=== PATIENT | male | born 1970 | race Caucasian/White ===

== ENCOUNTER → 2016-09-07 | Outpatient (CLI) | payer OTHER ==
[~2016-09-07] VITALS: Ht 188 cm; Wt 116.8 kg
[~2016-09-07] MED LIST: ATOR-22 PO; GLC/500 PO; LIRA18IN SC
[2016-09-07 13:19] VITALS: BP 117/85; PULSE 96; Ht 188 cm; Wt 116.8 kg
== END | disposition home or self-care (01) ==
LOC: C.NEUR 12:57
PROVIDERS: ATTEND Internal Medicine Pulmonary Disease
DX: R06.83 Snoring (principal); R06.81 Apnea, not elsewhere classified

== ENCOUNTER → 2016-09-21 | Outpatient (CLI) | payer OTHER ==
--- NOTE | 2016-09-24 10:48 | POLYSOMNOGRAPH REPORT ---
CLINICAL DATA: A 46-year-old male with a BMI of 33.06, referred by myself and Dr. Dey for evaluation of snoring and apneic episodes. He does not have significant daytime fatigue. On the evening of 09/21/2016, a home sleep apnea test was performed using a [employer] type 3 monitor. RECORDING RESULTS: Total recording time was 10 hours. The patient's estimated sleep time and patient monitoring time was 9.6 hours. RESPIRATORY DATA: Severe sleep apnea/hypopnea was documented. The LO was 46.4. There were 102 obstructive, 129 mixed, and 2 central apneic episodes. There were 214 hypopneic episodes. The longest respiratory event was 64 seconds. OXIMETRY DATA: Significant nocturnal hypoxemia was seen. Oxygen misty was 80%. Mean saturation was 91%. Time below 89% was 107 minutes. HEART RATE DATA: Heart rates ranged from 48-64 beats per minute. SNORING DATA: Loud snoring was heard throughout the night. IMPRESSION: Severe sleep apnea/hypopnea with an LO of 46.4 with significant nocturnal hypoxemia. RECOMMENDATIONS: The patient may benefit from a repeat sleep study with CPAP or use of auto-CPAP. CARMINAD
== END | disposition home or self-care (01) ==
LOC: C.NEUR 11:03
PROVIDERS: ATTEND Internal Medicine Pulmonary Disease
DX: R06.83 Snoring (principal); R06.81 Apnea, not elsewhere classified

== ENCOUNTER → 2016-09-24 | Outpatient (CLI) | payer OTHER ==
[~2016-09-24] VITALS: Ht 188 cm; Wt 116.2 kg
[2016-09-24 15:44] VITALS: BP 112/76; PULSE 80; Ht 188 cm; Wt 116.2 kg
== END | disposition home or self-care (01) ==
LOC: C.NEUR 13:40
PROVIDERS: ATTEND Internal Medicine Pulmonary Disease
DX: G47.33 Obstructive sleep apnea (adult) (pediatric) (principal)

== ENCOUNTER → 2017-07-28 | Outpatient (CLI) | payer OTHER | END | disposition home or self-care (01) | LOC: C.PATHSPEC 17:19 | PROVIDERS: ATTEND Plastic Surgery | DX: L72.9 Follicular cyst of the skin and subcutaneous tissue, unspecified (principal) ==

== ENCOUNTER → 2018-03-15 | Outpatient (CLI) | payer OTHER ==
--- NOTE | 2018-03-20 15:02 | POLYSOMNOGRAPH REPORT ---
CLINICAL DATA: A 47-year-old male with BMI of 28.5 referred for repeat home sleep apnea test. He has a history of severe sleep apnea with an LO of 46+ and was on auto CPAP. He lost 40 pounds and has stopped using CPAP. His no longer complains of snoring or witnessed apneic episodes. On the evening of 03/16/2018, home sleep apnea test was performed using a [employer] type 3 monitor. RECORDING RESULTS: Total recording time was 10 hours. Patient's monitoring time and estimated sleep time was 4 hours. RESPIRATORY DATA: Mild sleep apnea was documented. The LO was 15.8. There were 6 obstructive, 12 mixed, and 21 central apneic episodes. There were 25 hypopneic episodes. The longest respiratory event was 35 seconds. OXIMETRY DATA: Nocturnal hypoxemia was seen. Oxygen misty was 84%. Mean saturation was 91%. Time below 89% was 41 minutes. HEART RATE DATA: Heart rates ranged from 61-74 beats per minute. SNORING DATA: Snoring was recorded through the night. COUNTER STITCHER'S COMMENTS: The patient wore the equipment for 4 hours. He had a respiratory infection and took it off at 1:30 a.m. Many of his apneic episodes were central apneic episodes which can be seen with upper respiratory infections. The majority of his episodes occurred while supine. IMPRESSION: A 47-year-old male with previous history of severe sleep apnea with significant improvement with weight loss. The patient still has [id number] sleep apnea. However, the majority of these apneic episodes were central in origin, which may have been related to his respiratory tract infection. RECOMMENDATIONS: The patient should continue to practice good sleep hygiene. If clinically symptomatic, CPAP could be restarted. [facility]
== END | disposition home or self-care (01) ==
LOC: C.NEUR 08:32
PROVIDERS: ATTEND Internal Medicine Pulmonary Disease
DX: G47.30 Sleep apnea, unspecified (principal)

== ENCOUNTER 2022-01-11 08:09 | Observation (INO) ==
--- NOTE | 2022-01-07 13:48 | Anesthesiology Consultation ---
Date of Service January 07, 2022 Assessment & Plan (1) Encounter for pre-operative examination: - COVID screening: Per assessment on 01/07: No known COVID-19 positive contacts or current COVID-19 related symptoms. Travel screen- returned from travel to [place] (for work but also attended basketball game, stayed in hotel). Patient vaccinated. Preop Covid test scheduled 01/08 ([place]). D/t recent travel/basketball game attendance, will order [place] for AM DOS. - Check [facility] AM DOS Chart Review Chart Review: Acceptable Risk for Surgery and Patient NOT seen in Pre Admission Testing History Surgery Operation Date: 01/11/22 08:50 Proposed Procedures p TURP (Transurethral Resection of the Prostate) - Ciro Perez, Height/Weight Height: 6 ft 2 in Weight: 104.326 kg Allergies Allergy/AdvReac Type Severity Reaction Status Date / Time No Known Drug Allergies Allergy Verified 11/10/21 09:43 Medications Home Medications Medication Instructions Recorded Confirmed Last Taken alprazolam 0.5 mg tablet 0.5 mg PO DAILY PRN tab 04/20/19 01/07/22 Unknown atorvastatin 20 mg tablet 20 mg PO QAM #90 tab 04/20/19 01/07/22 Unknown eszopiclone 1 mg tablet 1 mg PO QPM PRN tab 04/20/19 01/07/22 Unknown metformin 500 mg tablet 500 mg PO BID #180 tab 04/20/19 01/07/22 Unknown semaglutide 1 mg/dose (2 mg/1.5 1 mg SUBCUT WEEKLY ml 04/20/19 01/07/22 Unknown mL) subcutaneous pen injector sildenafil (pulm.hypertension) 20 100 mg PO ONCE PRN #30 tab 04/09/21 01/07/22 Unknown mg tablet mirabegron 50 mg tablet,extended 50 mg PO DAILY #30 tab 05/06/21 01/07/22 Unknown release 24 hr (Myrbetriq) epinephrine 0.3 mg/0.3 mL 0.3 mg IM Q10M PRN #2 ea 05/08/21 01/07/22 Unknown injection, auto-injector (EpiPen) alfuzosin 10 mg tablet,extended 10 mg PO DAILY #30 tab 10/23/21 01/07/22 Unknown release 24 hr multivitamin 1 tab PO QAM 01/07/22 01/07/22 Unknown Past Medical History Medical History (Updated 01/07/22 @ 13:42 by Nadya Barahona) Benign prostatic hyperplasia with urinary obstruction Chronic kidney disease, stage I Diabetes History of COVID-19 07/2021 Flu-like symptoms, fever > resolved Hyperlipidemia 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 Severe obstructive sleep apnea Per records Past Family History Family History Father Hypertension Diabetes Family/Other Bladder cancer Past Surgical History Surgical History H/O elbow surgery LEFT S/P ACL reconstruction LEFT S/P bladder repair S/P colonoscopy 2019 Status post finger joint fusion RIGHT RING FINGER Status post hip surgery LEFT Social History Smoking Status: Never smoker Do You Dip or Chew Tobacco: No Hx Alcohol Use: Yes Alcohol type: beer and wine alcohol intake frequency: a few times a week Hx Substance Use: No substance use type: does not use Lab Results Anesthesia Preop Results Results Anesthesia Widget: WBC 4.01 K/uL (4.8-10.8) L 12/31/21 Hgb 14.6 g/dL (14.0-18.0) 12/31/21 Hct 43.3 % (42-52) 12/31/21 Plt 170 K/uL (130-400) 12/31/21 Na 139 mmol/L (136-145) 12/31/21 K 3.7 mmol/L (3.5-5.1) 12/31/21 Cl 104 mmol/L (98-107) 12/31/21 CO2 29 mmol/L (21-32) 12/31/21 BUN 16 mg/dl (6-23) 12/31/21 Creat 1.25 mg/dl (0.6-1.4) 12/31/21 Glucose Level 107 mg/dl (70-99(Fasting)) H 12/31/21 Testing Laboratory Results 12/23/21 UA negative URINE CULTURE no growth Electrocardiogram Date: 12/31/21 Findings: + SB @ (56) Chest X-Ray Date: 12/31/21 Findings: + NAD
[~2022-01-11 08:09] MED LIST changes: -ATOR-22 PO; -GLC/500 PO; -LIRA18IN SC; +LR 15ML/HR IV SCH; +ceFAZolin 2000MG 2,000 MG/15 ML SYR IV SCH
--- NOTE | 2022-01-11 08:19 | History & Physical Bridge Note ---
Date of Service January 11, 2022 History & Physical Bridge Note I have examined the patient, reviewed the History & Physical and in the interval since the performance of the History & Physical I have noted the following changes of clinical significance: no changes noted
[2022-01-11] MEDS ORDERED: PROPOFOL IV EMULSION 10 MG/ML 20 ML VIAL IV ONE ×2 (08:26→11:06)
[2022-01-11] MEDS ORDERED: ONDANSETRON INJ 2 MG/ML 2 ML VIAL ONE (08:26)
[2022-01-11] MEDS ORDERED: LIDOCAINE 2% 2 ML VIAL/AMP(20MG/ML) INFIL ONE ×2 (08:26→11:06)
[2022-01-11] MEDS ORDERED: fentaNYL citrate 100 MCG/2 ML VIAL ONE ×2 (08:26→11:57)
[2022-01-11] MEDS ORDERED: MIDAZOLAM HCL 1 MG/ML 2ML VIAL ONE (08:26)
[2022-01-11] MEDS ORDERED: ALBUTEROL HFA INHALER 8.5 GM ONE (10:37)
--- NOTE | 2022-01-11 11:22 | Operative Report ---
PG Post Operative Report Pre & Post Diagnosis Operation Date: 01/11/22 09:40 Pre-Op Diagnosis: Benign Prostatic Hyperplasia with Urinary Obstruction Post-Op Diagnosis: Benign Prostatic Hyperplasia with Urinary Obstruction I identified the patient and participated in the time-out.: Yes Procedure Operation Date: 01/11/22 09:40 Actual Procedures p Cystoscopy with Transurethral Resection of the Prostate(Not Applicable) - Ciro Perez DO Surgeon Ciro Perez, II, DO Potato Sorter None Estimated Blood Loss 5 Findings Consistent with Post-Op Diagnosis Large Prostate with obstruction. Specimens Prostate adenoma. Drains 22Fr [address] Catheter Anesthesia Type General Complications none Disposition Disposition: Recovery Room Indications Patient with obstruction due to prostate enlargement. Risks and benefits discussed at length. Description of Procedure Patient was consented and brought back to the operating room. Patient was placed under anesthesia in the supine position and moved to the dorsal lithotomy position. Patient was prepped and draped in the regular sterile fashion. A time out was completed. A 30degree Cystoscope was placed into the bladder and the entire bladder was examined. The UO's were identified as well as the bladder neck, trigone, dome, and the other important landmarks. The prostatic urethra and large lobes/adenoma was assessed and the veru and bladder neck identified and area/size was assessed. The resection scope was placed and the fine bipolar loop was selected. Starting at the 5 and 7 o'clock positions, a channel was created from bladder neck to the veru. The lateral lobes were then resected from 1 and 11 o'clock to the channel. The resection was taken to capsule fibers. The Specimen was removed and sent for analysis. The resection bed and any bleeding areas were fulgurated/cauterized and the entire area inspected. All bleeding was controlled. The bladder was inspected a final time. The bladder was emptied and irrigated. All specimen and debris was removed. The scope was removed with the bladder partially full. A catheter was placed and balloon elevated. This was easily irrigated. The patient was cleaned, aroused from anesthesia, and transferred to the pacu in stable condition having tolerated the procedure well with no complications. I was present and participated in all aspects of the procedure. The patient will be monitored in the PACU until transferred. Will admit for observation over night and monitor on CBI. Plan to keep rosales for 10 days and followup in office for removal. I attest to the content of the Intraoperative Record and any orders documented therein. Any exceptions are noted below.
[2022-01-11] MEDS ORDERED: ATROPINE SULFATE 0.1 MG/ML 10ML SYR IV PRN (11:55)
[2022-01-11] MEDS ORDERED: ONDANSETRON INJ 2 MG/ML 2 ML VIAL IV PRN ×2 (11:55→14:01)
[2022-01-11] MEDS: fentaNYL citrate 100 MCG/2 ML VIAL IV PRN ×2 (11:59→12:10)
--- NOTE | 2022-01-11 12:22 | Anesthesiology Progress Note ---
Date of Service January 11, 2022 Anesthesia Post Procedure Vital Signs Vital Signs: Temp Pulse Pulse Resp BP Pulse Ox 01/11/22 12:20 57 L 12 135/78 93 01/11/22 12:10 61 12 140/77 95 01/11/22 12:00 64 16 135/78 95 01/11/22 11:50 64 16 142/83 H 96 01/11/22 11:40 65 15 126/76 95 01/11/22 11:30 67 16 127/74 100 01/11/22 11:24 36.2 C L 69 18 130/73 100 01/11/22 08:51 36.3 C L 73 18 135/85 96 Pain Intensity Penis: Pain Intensity: 4 Transfer of Care Handoff Completed per policy Notes Mental Status: alert / awake / arousable Patient Amnestic to Procedure: Yes Nausea / Vomiting: adequately controlled Pain: adequately controlled Airway Patency, RR, SpO2: stable & adequate BP & HR: stable & adequate Hydration State: stable & adequate Anesthetic Complications: no major complications apparent
[2022-01-11] MEDS ORDERED: ESZOPICLONE 1 MG TAB PO PRN (14:01)
[2022-01-11] MEDS ORDERED: ALPRAZolam 0.5 MG TABLET PO PRN (14:01)
[2022-01-11] MEDS ORDERED: MoRPHine SULFATE 2 MG/ML CARP IV PRN (14:01)
[2022-01-11] MEDS ORDERED: BELLADONNA/OPIUM SUPP 60 MG SUPP PR PRN (14:01)
--- NOTE | 2022-01-11 14:20 | Hospitalist Consultation ---
Date of Consultation January 11, 2022 Assessment & Plan (1) Benign prostatic hyperplasia with urinary obstruction: S/p TURP on 01/[address] Perez. No complications noted in op report. Minimal EBL. - Management per primary team (2) Diabetes: No A1c in charts, but reports they are <6%. Has not been able to take his home semaglutide in several weeks due to being out of stock. - Sliding scale insulin (3) Insomnia: - Continue home eszopiclone PRN - Will also add Xanax for general anxiety PRN. Encouraged not to stack medications. (4) Witnessed apneic spells: Diagnosed with CHELY. Has used a CPAP at home previously, but not using one now. - No inpatient needs (5) Hyperlipidemia: - Continue statin (6) DVT prophylaxis: SCDs and early ambulation Given medical stability, Hospital Medicine team will sign off. Please re-consult with any questions or concerns. Thank you for letting us assist in the care of this patient! History of Present Illness Attending Physician: Ciro Perez, II, DO History of Present Illness 51yo M w/ hx of BPH, HLD, and anxiety who presents as a routine medical consult after TURP on 01/[address] Perez. Has been struggling with BPH symptoms for some time that have failed medical management. Presently feels ok. Albrecht is in place. Allergies Allergy/AdvReac Type Severity Reaction Status Date / Time No Known Drug Allergies Allergy Verified 01/11/22 08:47 Home Medications Medication Instructions Recorded Confirmed Type alprazolam 0.5 mg tablet 0.5 mg PO DAILY PRN tab 04/20/19 01/11/22 History atorvastatin 20 mg tablet 20 mg PO QAM #90 tab 04/20/19 01/11/22 History eszopiclone 1 mg tablet 1 mg PO QPM PRN tab 04/20/19 01/11/22 History semaglutide 1 mg/dose (2 mg/1.5 1 mg SUBCUT WEEKLY ml 04/20/19 01/11/22 History mL) subcutaneous pen injector sildenafil (pulm.hypertension) 20 100 mg PO ONCE PRN #30 tab 04/09/21 01/11/22 Rx mg tablet mirabegron 50 mg tablet,extended 50 mg PO DAILY #30 tab 05/06/21 01/11/22 Rx release 24 hr (Myrbetriq) epinephrine 0.3 mg/0.3 mL 0.3 mg IM Q10M PRN #2 ea 05/08/21 01/11/22 Rx injection, auto-injector (EpiPen) alfuzosin 10 mg tablet,extended 10 mg PO DAILY #30 tab 10/23/21 01/11/22 Rx release 24 hr multivitamin 1 tab PO QAM 01/07/22 01/11/22 History Patient History Medical History (Updated 01/11/22 @ 14:30 by López Purcell MD) Benign prostatic hyperplasia with urinary obstruction Chronic kidney disease, stage I Diabetes History of COVID-19 07/2021 Flu-like symptoms, fever > resolved Hyperlipidemia 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 Severe obstructive sleep apnea Per records Surgical History H/O elbow surgery LEFT S/P ACL reconstruction LEFT S/P bladder repair S/P colonoscopy 2019 Status post finger joint fusion RIGHT RING FINGER Status post hip surgery LEFT Family History Father Hypertension Diabetes Family/Other Bladder cancer Social History Smoking Status: Never smoker Second Hand Exposure: No; Do You Dip or Chew Tobacco: No; Tobacco Cessation Education Requested by Patient: No Hx Alcohol Use: Yes Alcohol type: beer and wine Hx Substance Use: No Preferred Language: Macedonian Communication Ability: Effective Case Investigator Required: No Beliefs That Will Affect Care: None marital status: Current Living Situation: Spouse current occupational status: employed Other Information That Helps Us Care for You: No Feels Safe at Home: Yes Safety Concerns: Feels Safe At This Time Assistive Devices: Glasses Assistive Devices Comment: READING GLASSES Review of Systems Review of Systems: All systems reviewed & are unremarkable except as noted in HPI & below Physical Exam Constitutional: WD/WN, vitals as above Eyes: EOM intact bilaterally; no conjunctival abnormality ENMT: external ear and nose normal, oropharynx normal Neck: trachea midline, no thyromegaly normal visual inspection Respiratory: normal respiratory effort, lungs clear to auscultation no respiratory distress Cardiovascular: RRR, no murmur, no edema Gastrointestinal (Abdomen): Inspection/Auscultation: abdomen normal to inspection; abdomen not distended Musculoskeletal: no cyanosis or clubbing, extremities motor strength 5/5 Skin: no rashes, warm and dry Neurologic: moves all extremities and awake Psychiatric: Orientation: alert, oriented to person and cooperative Results & Data Results & Data ([facility]) Vital Signs (Past 12 Hours) Vital Signs Temp Pulse Pulse Resp BP Pulse Ox 01/11/22 13:25 61 16 119/73 96 01/11/22 13:10 63 16 123/70 99 01/11/22 12:55 62 16 125/74 95 01/11/22 12:40 36.0 C L 60 16 125/73 96 01/11/22 12:30 61 12 127/75 96 01/11/22 12:20 57 L 12 135/78 93 01/11/22 12:10 61 12 140/77 95 01/11/22 12:00 64 16 135/78 95 01/11/22 11:50 64 16 142/83 H 96 01/11/22 11:40 65 15 126/76 95 01/11/22 11:30 67 16 127/74 100 01/11/22 11:24 36.2 C L 69 18 130/73 100 01/11/22 08:51 36.3 C L 73 18 135/85 96 PG Care Time/CCT Total # of Minutes Spent Total Time Spent with Patient: Total time spent is greater than 50% in coordination of care (as documented) at patient's floor/unit and/or counseling patient: Coding Level of Care Code 86710 Office/OBS Consult Lvl 4 Diagnoses Benign prostatic hyperplasia with urinary obstruction N40.1; N13.8 Witnessed apneic spells R06.81 Hyperlipidemia E78.5 DVT prophylaxis Z29.9 Diabetes E11.9 Insomnia G47.00
[2022-01-11] MEDS ORDERED: GLUCAGON FOR INJ 1 MG VIAL SQ PRN (14:32)
[2022-01-11] MEDS ORDERED: DEXTROSE 50% 50 ML SYRINGE IV PRN (14:32)
[2022-01-11] MEDS ORDERED: GLUCOSE 40% GEL 15 GM TUBE PO PRN (14:32)
[2022-01-11] MEDS ORDERED: GLUCOSE 10 TABS/TUBE PO PRN (14:32)
[2022-01-11] MEDS ORDERED: CARBOHYDRATES FOR HYPOGLYCEMIA PO PRN (14:32)
[2022-01-11] MEDS ORDERED: EPINEPHrine INJ 1 MG/ML AMP IM PRN (14:45)
[2022-01-11 14:55] LABS: Basophils # (auto) 0.01 K/uL (0-0.2); Basophils % (auto) 0.2 %; Eosinophils # (auto) 0.15 K/uL (0-0.5); Eosinophils % (auto) 2.6 %; Hematocrit (blood only) 38.9 % (42-52); Hemoglobin 12.9 g/dL (14.0-18.0); Immature Granulocytes # (auto) 0.01 K/uL (0.00-0.02); Immature Granulocytes % (auto) 0.2 %; Lymphocytes # (auto) 1.62 K/uL (1.2-3.4); Lymphocytes % (auto) 28.2 %; Mean Corpuscular Hemoglobin 29.3 pg (25-34); Mean Corpuscular Hgb Conc 33.2 g/dL (32-36); Mean Corpuscular Volume 88.4 fL (80-100); Mean Platelet Volume 11.1 fL (7.4-10.4); Monocytes # (auto) 0.35 K/uL (0.11-0.59); Monocytes % (auto) 6.1 %; Neutrophils % (auto) 62.7 %; Platelet Count 136 K/uL (130-400); RDW Coefficient of Variation 13.3 % (11.5-14.5); RDW Standard Deviation 42.8 fL (36.4-46.3); White Blood Count 5.74 K/uL (4.8-10.8)
[2022-01-11 15:06] LABS: Albumin Globulin Ratio 1.7 (0.9-2); Albumin Level 3.4 gm/dl (3.4-5.0); BUN Creatinine Ratio 7.1 (10-20); Bilirubin,Total 1.5 mg/dl (0.2-1.0); Calcium 8.1 mg/dl (8.5-10.1); Creatinine Clr Calc Pharmacy 89.6 ml/min; Est GFR (African American) 75.3 ml/min; Potassium 4.6 mmol/L (3.5-5.1); Total Protein 5.4 gm/dl (6.0-8.3)
[2022-01-11] MEDS: ALFUZOSIN HCL 10 MG TAB PO SCH (15:16)
[2022-01-11] MEDS: ATORVASTATIN 20 MG TAB PO SCH (15:16)
[2022-01-11] MEDS: DOCUSATE SODIUM 100 MG CAP PO SCH ×2 (15:17→21:43)
[2022-01-11] MEDS: SODIUM CHLORIDE 0.9% 1000ML 1,000 ML IV SCH (15:23)
[2022-01-11] MEDS: PHENAZOPYRIDINE HCL 200 MG TAB PO PRN ×2 (15:44→22:18)
[2022-01-11] MEDS: INSULIN ASPART PER UNIT SC SCH ×2 (17:00→20:31)
[2022-01-11] MEDS: ceFAZolin 2000MG 2,000 MG/15 ML SYR IV SCH (17:25)
[2022-01-11] MEDS: oxyCODONE/ACETAMINOPHEN 5mg/325mg TAB PO PRN (21:43)
[2022-01-12] MEDS: oxyCODONE/ACETAMINOPHEN 5mg/325mg TAB PO PRN ×2 (02:32→08:39)
[2022-01-12] MEDS: ceFAZolin 2000MG 2,000 MG/15 ML SYR IV SCH ×2 (02:35→09:20)
[2022-01-12] MEDS: SODIUM CHLORIDE 0.9% 1000ML 1,000 ML IV SCH (04:45)
--- NOTE | 2022-01-12 07:59 | Urology Progress Note ---
Date of Service January 12, 2022 Assessment & Plan (1) Benign prostatic hyperplasia with urinary obstruction: Plan: 51yo M admitted postoperatively - POD #1 s/p Cystoscopy with Transurethral Resection of the Prostate with Dr. Perez. - Hospital medicine consulted, appreciate recommendations. - Doing well, progressing as expected. - Pt afebrile, hemodynamically stable. - Postop labs stable. - Tolerating PO diet. - Minimal pain. - 3 way Albrecht catheter intact, patent and draining clear yellow urine with CBI on slow-moderate. - CBI clamped @0840, nursing aware - will reassess later this AM. - Maintain Albrecht catheter. - Anticipate home with Albrecht catheter later today presuming urine appropriate and he continues to progress as expected. - Pt reassessed this afternoon. - Patient feeling well, progressing as expected. - Albrecht draining clear yellow/orange urine off CBI. - Minimal pain. - Tolerating diet, no nausea or vomiting. - Expected clinical course reviewed with patient, he verbalized understanding. All questions answered. - Postoperative follow-up appointment in place. - Stable for discharge home today with Albrecht catheter. Admission and Anticipated Discharge Date Admission Date: January 11, 2022 Subjective Postop day #1 status post TURP. Patient examined at bedside this AM. Awake, resting in bed on arrival. No issues overnight. Minimal pain. Albrecht catheter intact, draining clear yellow urine with CBI on slow to moderate. Tolerating diet, no nausea or vomiting. Ambulating without issue. No fevers. Review of Systems Constitutional: as per Subjective / HPI Gastrointestinal: as per Subjective / HPI Genitourinary: + as per Subjective / HPI Physical Exam Constitutional: no acute distress Respiratory: normal respiratory effort; no respiratory distress and no labored breathing Gastrointestinal (Abdomen): Inspection/Auscultation: abdomen normal to inspection Skin: No visible rashes or lesions Neurologic: moves all extremities and awake Psychiatric: A+Ox3, euthymic affect Genitourinary: Albrecht catheter intact, draining clear yellow urine with CBI on slow to moderate. Results & Data ([facility]) Vital Signs (Past 12 Hours) Vital Signs Temp Pulse Resp BP Pulse Ox 01/12/22 02:48 36.6 C 58 L 16 113/69 93 01/11/22 22:44 36.8 C 66 16 121/73 93 PG Care Time/CCT Total # of Minutes Spent Total Time Spent with Patient: Total time spent is greater than 50% in coordination of care (as documented) at patient's floor/unit and/or counseling patient: Coding Level of Care Code None Diagnoses Benign prostatic hyperplasia with urinary obstruction N40.1; N13.8
[2022-01-12] MEDS: PHENAZOPYRIDINE HCL 200 MG TAB PO PRN (08:39)
[2022-01-12] MEDS: DOCUSATE SODIUM 100 MG CAP PO SCH (08:39)
[2022-01-12] MEDS: ATORVASTATIN 20 MG TAB PO SCH (08:40)
[2022-01-12] MEDS: ALFUZOSIN HCL 10 MG TAB PO SCH (08:40)
[2022-01-12] MEDS: INSULIN ASPART PER UNIT SC SCH ×2 (08:56→12:05)
--- NOTE | 2022-01-12 12:46 | Discharge Summary ---
Date of Service January 12, 2022 Admission HPI Per Admitting Provider 51yo M with BPH w/urinary obstruction who presents for transurethral resection of the prostate Admission Exam Per Admitting Provider General: Alert in no acute distress. HEENT: Normocephalic Atraumatic. Inspection normal. Psychologic: Normal affect. Respiratory: Nonlabored. Cardiovascular: No tachycardia Skin: [place] and Dry. Principal Diagnosis Benign Prostatic Hyperplasia with Urinary Obstruction Discharge Exam Constitutional no acute distress Respiratory normal respiratory effort; no respiratory distress and no labored breathing Gastrointestinal (Abdomen) Inspection/Auscultation: abdomen normal to inspection Neurologic moves all extremities and awake Psychiatric A+Ox3, euthymic affect Genitourinary Albrecht catheter intact, draining clear yellow/orange urine Discharge Data Allergies Allergy/AdvReac Type Severity Reaction Status Date / Time No Known Drug Allergies Allergy Verified 01/11/22 08:47 Consultations 01/11/22 14:01 Consult Hospitalist Routine Procedures Performed Operation Date: 01/11/22 09:40 Actual Procedures p Cystoscopy, Transurethral Resection of the Prostate(Not Applicable) - Ciro Perez DO Hospital Course (1) Benign prostatic hyperplasia with urinary obstruction: 51yo M admitted postoperatively s/p Cystoscopy with Transurethral Resection of the Prostate with Dr. Perez. Pt tolerated procedure well. No acute issues postoperatively. Postop labs stable. Hospital medicine consulted postoperatively for medical management. Patient deemed medically stable, hospital team signed off. CBI clamped in the morning of postop day #1, urine remained clear. Patient tolerated diet, ambulated without issue, and had minimal pain. He was subsequently discharged home with Albrecht catheter in stable condition on postop day #1. Total Time Total Time Spent Total Time Spent (In Minutes): 15 Discharge Plan Discharge Items Patient Disposition: Home - Self-Care Reason For Visit: Benign Prostatic Hyperplasia with Urinary Obstruct Discharge Diagnosis: Benign Prostatic Hyperplasia with Urinary Obstruction Activity: Per Instructions section Bathing Comment: OK to shower. No tub baths or soaks. Driving/Machine Use: Do not drive if taking prescription pain medication. Non-emergency contact: Surgeon and Urologist Call non-emergency contact if: you have any medication questions, your pain is worsening and you have a fever Follow-up/Referrals: Ciro Perez DO [Physician] - 01/26/22 1:00 pm Rommel Dey [Primary Care Provider] - Diet: Regular and Carb Consistent or DM2 Addtl Attending Provider Instructions: Please take all medications as prescribed and keep all follow-ups as scheduled. Please call our office at [phone] with any questions, concerns or need to reschedule appointments for any reason. We are happy to assist you. The following prescriptions have been sent to your pharmacy- An antibiotic, Bactrim DS 1 tab twice daily for 3 days. A stool softener, Colace twice daily as needed. Pyridium twice daily as needed for bladder pain and burning. Oxycodone as needed for pain. You can also use OTC Tylenol, follow package instructions. Tips for your recovery at home: Dont be alarmed by brownish or reddish blood or clots in your urine. This is a result of the procedure. This may occur off and on for weeks to months after the procedure but should continue to improve. Drink plenty of fluids during the day (enough to keep your urine very light colored). This will help keep a healthy flow of urine. Do not lift >25 lbs until your followup Avoid constipation. Please use a stool softener (Colace) for the first two weeks after your procedure Be sure to finish the antibiotics as prescribed. If you go home with a catheter, please wash tubing where it enters your body twice daily with mild soap (Dove or Dial). Once your catheter is removed, expect some blood in your urine and some burning when you urinate. You should have an appointment to have this removed, if you do not please call our office to arrange. Follow-up Your follow up appointments for having your catheter removed, and follow up with your physician should already be scheduled. If you have any questions regarding this, please contact our office. Your final pathology report will be discussed at your physician follow-up appointment. Call [facility] at [phone] right away if you have any of the following: Heavy bleeding, clots, or bright red blood from the catheter Catheter that falls out or stops draining Foul-smelling discharge from your catheter Fever of 101F or higher, chills, nausea, or vomiting Your pain is not relieved with medication Pending Studies at Discharge: Yes Studies:: pathology Stand-Alone Forms: My [facility] [employer], Smoking Cessation Medications and DC Order Prescriptions: New docusate sodium [Colace] 100 mg capsule 100 mg PO BID Qty: 30 RF: 0 sulfamethoxazole-trimethoprim [Bactrim DS] 800-160 mg tablet 1 tab PO BID 3 Days Qty: 6 RF: 0 phenazopyridine [Pyridium] 100 mg tablet 100 mg PO BID PRN (Reason: pain) Qty: 7 RF: 0 oxycodone 5 mg tablet 5 mg PO Q8H PRN (Reason: pain) Qty: 5 RF: 0 Continued sildenafil (pulm.hypertension) 20 mg tablet 100 mg PO ONCE PRN (Reason: sexual activity) Qty: 30 RF: 11 alfuzosin 10 mg tablet extended release 24 hr 10 mg PO DAILY Qty: 30 RF: 5 alprazolam 0.5 mg tablet 0.5 mg PO DAILY PRN (Reason: Anxiety) RF: 0 eszopiclone 1 mg tablet 1 mg PO QPM PRN (Reason: Sleep) RF: 0 atorvastatin 20 mg tablet 20 mg PO QAM Qty: 90 RF: 0 semaglutide 1 mg/dose (2 mg/1.5 mL) pen injector 1 mg subcut WEEKLY RF: 0 epinephrine [EpiPen] 0.3 mg/0.3 mL auto-injector 0.3 mg IM Q10M PRN (Reason: anaphylaxis) Qty: 2 RF: 1 multivitamin Tablet 1 tab PO QAM RF: 0 Discontinued Myrbetriq 50 mg tablet extended release 24 hr 50 mg PO DAILY Qty: 30 RF: 5 Discharge Orders: Discharge Order (Routine); Ordered 01/12/22 Ordered By: Tamanna Cevallos/Other Patient Handouts: Urinary Catheter Bag Empty Clean, Leg Bag Care Az Admission Data Admit Date/Time: 01/11/22 08:25 Attending Provider: Ciro Perez Admit Provider: Ciro Perez Primary Care Provider: Rommel Dey Other Providers: Mahesh Anaya ; Tamanna Dean ; Dionicio Villa ; Jose Flowers ; Nando Lawrence ; Donny Mendenhall ; Kenneth Elias ; Marlen Garvin ; Nic Crews ; Kiersten Barcenas ; López Purcell ; Pool Clarke ; Veda Delacruz ; Stormy Lundberg ; Breanna Castrejon ; Neto Lee ; Tamanna Esparza ; Terrell Riddle ; Dutsin Roach ; Dionicio White ; Matilde Knight ; Caren Hartman ; Félix Boyd ; Jaquelin Griggs ; Dick Brock ; Rehan Piedra ; Froylan Garsia ; Rogerio Benavides ; Jose Zuniga Other Interventions: Discharge Summary Assessment (RN) Last Done: 01/12/22 13:12 Coding Level of Care Code D/C DAY MANAGEMENT <30 MINS Diagnoses Benign prostatic hyperplasia with urinary obstruction N40.1; N13.8
== END 2022-01-12 13:52 | disposition home or self-care (01) ==
LOC: ASU 08:09 → 3N 08:09

== ENCOUNTER 2022-01-27 07:41 | Inpatient (IN) ==
[2022-01-27] MEDS: SODIUM CHLORIDE 0.9% 1000ML 1,000 ML IV SCH ×4 (08:00→10:55)
[2022-01-27] MEDS ORDERED: SODIUM CHLORIDE 0.9% 1000ML 1,000 ML IV SCH ×2 (08:15→12:44)
[2022-01-27] MEDS ORDERED: NOREPINEPHRINE/D5W 4 MG/250 ML IV ONE (08:20)
[2022-01-27] MEDS ORDERED: VANCOMYCIN CONSULT ACTIVE PRN (08:26)
[2022-01-27] MEDS ORDERED: CEFEPIME 2,000 MG in SYRINGE 0 ML IV STA (08:26)
--- NOTE | 2022-01-27 08:26 | Emergency Department Note ---
History of Present Illness General Chief complaint: Dehydration Stated complaint: FEVER, DEHYDRATED Time Seen by Provider: 01/27/22 08:00 Source: patient Mode of arrival: ambulatory Limitations: no limitations History of Present Illness Maximum Pain Intensity: 8 This is a 51 yo male who presents due to concern for fatigue, fever, and concern for dehydration. Patient is s/p TURP one week ago with Dr. Perez. Patient states he had hematuria and rosales was removed on Tuesday. Blood with urination has persisted and he noticed decreasing appetite and energy. This morning awoke with shaking chills, then became sweaty and developed a fever of 103 F at home. He denies chest pain, palpitations, SOB, abdominal pain, back pain, or leg swelling. He still has some discomfort with urination, no scrotal edema. No change in stools. Patient initially seen with family practice resident Dr. Sanchez. Pt seen during a time of high acuity and national emergency pandemic while wearing PPE. Home Medications Medication Instructions Recorded Confirmed Type alprazolam 0.5 mg tablet 0.5 mg PO DAILY PRN tab 04/20/19 01/26/22 History atorvastatin 20 mg tablet 20 mg PO QAM #90 tab 04/20/19 01/26/22 History eszopiclone 1 mg tablet 1 mg PO QPM PRN tab 04/20/19 01/26/22 History epinephrine 0.3 mg/0.3 mL 0.3 mg IM Q10M PRN #2 ea 05/08/21 01/26/22 Rx injection, auto-injector (EpiPen) multivitamin 1 tab PO QAM 01/07/22 01/26/22 History docusate sodium 100 mg capsule 100 mg PO BID #30 cap 01/12/22 01/26/22 Rx (Colace) oxycodone 5 mg tablet 5 mg PO Q8H PRN #5 tab 01/12/22 01/26/22 Rx phenazopyridine 100 mg tablet 100 mg PO BID PRN #7 tab 01/12/22 01/26/22 Rx (Pyridium) alfuzosin 10 mg tablet,extended 10 mg PO QPM 01/25/22 01/26/22 History release 24 hr semaglutide 1 mg/dose (4 mg/3 mL) 1 mg SUBCUT WK 01/25/22 01/26/22 History subcutaneous pen injector (Ozempic) sildenafil (pulm.hypertension) 20 100 mg PO DIRECTED PRN 01/25/22 01/26/22 History mg tablet ciprofloxacin HCl 500 mg tablet 500 mg PO Q12H 10 Days #20 tab 01/29/22 Rx ondansetron 4 mg disintegrating 4 mg PO Q8H 2 Days #6 tab 01/29/22 Rx tablet Allergies Allergy/AdvReac Type Severity Reaction Status Date / Time No Known Allergies Allergy Verified 01/26/22 12:55 Past Med/Surg History Medical History Benign prostatic hyperplasia with urinary obstruction Chronic kidney disease, stage I Diabetes History of COVID-19 07/2021 Flu-like symptoms, fever > resolved Hyperlipidemia 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 Severe obstructive sleep apnea Per records Surgical History H/O elbow surgery LEFT S/P ACL reconstruction LEFT S/P bladder repair S/P colonoscopy 2019 Status post finger joint fusion RIGHT RING FINGER Status post hip surgery LEFT Family History Father Hypertension Diabetes Family/Other Bladder cancer Social History Smoking Status: Never smoker Second Hand Exposure: No; Hx Alcohol Use: Yes Alcohol type: beer and wine Hx Substance Use: No Preferred Language: Syriac Communication Ability: Effective Provider Relations Coordinator Required: No Beliefs That Will Affect Care: None marital status: Current Living Situation: Family Current Living Situation Comment: lives with and children current occupational status: employed How many Children do You have: 3 Feels Safe at Home: Yes Assistive Devices: CPAP Review of Systems A total of 10 systems reviewed and were otherwise negative All systems reviewed & are unremarkable except as noted in HPI & below Physical Exam Vital Signs Vital Signs - 24 hr 01/27/22 07:44 01/27/22 07:54 01/27/22 07:56 Temperature 37.9 C H 39.4 C H Temperature Source Temporal Artery Scan Oral Pulse Rate 133 H 128 H Pulse Rhythm Regular Respiratory Rate 22 28 H Respiratory Effort / Characteristics Non-Labored Spontaneous Respiratory Depth Normal Blood Pressure 75/39 L Blood Pressure Mean 51 Pulse Oximetry 95 95 Oxygen Delivery Method Room Air Room Air Sepsis Recent Fever Within 48 Hours Yes Sepsis New/Unexplained Change in Mental Status N/A Sepsis Action Taken by Nursing Physician Notified GENERAL: alert, ill appearing, well nourished, no distress EYE EXAM: normal conjunctiva, PERRL and EOM's grossly intact OROPHARYNX: no exudate, no erythema, lips, buccal mucosa, and tongue normal and mucous membranes are dry NECK: supple, no nuchal rigidity, no adenopathy, non-tender LUNGS: Clear to auscultation. Normal chest wall mechanics, no w/r/r HEART: no murmurs, S1 normal and S2 normal ABDOMEN: abdomen soft, non-tender, normo-active bowel sounds, no masses, no rebound or guarding. BACK: Back is symmetrical on inspection and there is no deformity, no midline tenderness, no CVA tenderness. SKIN: no rashes and no bruising, cynosis noted to distal extremities and slightly mottling of skin throughout UPPER EXTREMITIES: upper extremities are grossly normal. FROM, nml pulses b/l. LOWER EXTREMITIES: No pitting edema. FROM, nml pulses b/l. NEURO EXAM: Normal sensorium, cranial nerves II-XII grossly intact, normal speech, no gross weakness of arms, no gross weakness of legs. Gross sensation intact. Course Course 0822: IVF running, pt still hypotensive. 0850: BP slightly improved. Patient reports feeling improved. 0936: BP still low. Liters 2 and 3 hanging. Tachycardia improved. MOttling improved. 1002: Patient has 4th liter hanging, MAP still not greater than 65. Levophed ready to be started. Dr. Sanchez has spoken with the hospitalist and helper driver. 1022: BP seems improved since 4th liter finished. Levophed only started for a few minutes and then stopped per nursing protocol. HR improved. Patient reports feeling improved. Administered Medications Discontinued Medications Acetaminophen (Acetaminophen 1000 Mg/100 Ml Iv) 1,000 mg IV NOW STA Stop: 01/27/22 08:31 Last Admin: 01/27/22 08:34 Dose: 1,000 mg Documented by: [id number] Acetaminophen (Acetaminophen 500 Mg Tab) 1,000 mg PO Q6H PRN PRN Reason: Pain or Fever Stop: 02/26/22 19:14 Last Admin: 01/28/22 05:34 Dose: 1,000 mg Documented by: [id number] Admin: 01/27/22 19:36 Dose: 1,000 mg Documented by: [id number] Acetaminophen (Acetaminophen 500 Mg Tab) 500 mg PO ONE ONE Stop: 01/28/22 14:24 Last Admin: 01/28/22 14:30 Dose: 500 mg Documented by: [id number] Acetaminophen (Acetaminophen 500 Mg Tab) 500 mg PO Q6H PRN PRN Reason: Pain or Fever Stop: 02/26/22 19:14 Last Admin: 01/29/22 06:53 Dose: 500 mg Documented by: [id number] Admin: 01/28/22 20:38 Dose: 500 mg Documented by: [id number] Atorvastatin Calcium (Atorvastatin 20 Mg Tab) [facility] [place] Stop: 02/27/22 08:59 Last Admin: 01/29/22 08:24 Dose: 20 mg Documented by: [id number] Eszopiclone (Eszopiclone 1 Mg Tab) 1 mg PO HSZ PRN PRN Reason: Insomnia Stop: 02/26/22 21:57 Last Admin: 01/28/22 22:04 Dose: 1 mg Documented by: [id number] Admin: 01/27/22 22:26 Dose: 1 mg Documented by: [id number] Heparin Sodium (Porcine) (Heparin Sod 5,000 Unit/0.5 Ml Vial) 5,000 units SQ Q12 [facility] Stop: 02/27/22 08:59 Last Admin: 01/29/22 08:25 Dose: 5,000 units Documented by: [id number] Admin: 01/28/22 20:36 Dose: 5,000 units Documented by: [id number] Admin: 01/28/22 09:47 Dose: 5,000 units Documented by: [id number] Sodium Chloride (Nss 1000ml) 1,000 mls @ 999 mls/hr IV .Q1H1M [facility] Stop: 01/27/22 09:15 Last Infusion: 01/27/22 09:46 Dose: 0 mls/hr Documented by: [id number] Admin: 01/27/22 08:00 Dose: 999 mls/hr Documented by: [id number] Sodium Chloride (Nss 1000ml) 1,000 mls @ 999 mls/hr IV .Q1H1M [facility] Stop: 01/27/22 09:16 Last Admin: 01/27/22 10:55 Dose: Not Given Documented by: [id number] Infusion: 01/27/22 09:46 Dose: 0 mls/hr Documented by: [id number] Admin: 01/27/22 08:00 Dose: 999 mls/hr Documented by: [id number] Sodium Chloride (Nss 1000ml) 1,000 mls @ 999 mls/hr IV .Q1H1M [facility] Stop: 01/27/22 09:16 Last Admin: 01/27/22 10:55 Dose: Not Given Documented by: [id number] Infusion: 01/27/22 09:46 Dose: 0 mls/hr Documented by: [id number] Admin: 01/27/22 08:15 Dose: 999 mls/hr Documented by: [id number] Cefepime HCl 2,000 mg/ Syringe 20 mls @ 5 mls/min IV NOW STA; Protocol Stop: 01/27/22 08:29 Last Admin: 01/27/22 09:46 Dose: Not Given Documented by: [id number] Piperacillin Sod/Tazobactam Sod (Zosyn) 4.5 gm in 120 mls @ 240 mls/hr IV NOW ONE Stop: 01/27/22 08:56 Last Infusion: 01/27/22 09:47 Dose: 0 mls/hr Documented by: [id number] Admin: 01/27/22 09:05 Dose: 240 mls/hr Documented by: [id number] Sodium Chloride (Nss 1000ml) 500 mls @ 999 mls/hr IV .Q31M ONE Stop: 01/27/22 10:02 Last Infusion: 01/27/22 10:31 Dose: 0 mls/hr Documented by: [id number] Admin: 01/27/22 09:47 Dose: 999 mls/hr Documented by: [id number] Norepinephrine Bitartrate (Levophed/D5w) 4 mg in 250 mls @ 19.144 mls/hr IV .Q13H4M [facility]; Protocol Stop: 02/26/22 10:14 Last Titration: 01/28/22 09:34 Dose: 0 mcg/kg/min, 0 mls/hr Documented by: [id number] Titration: 01/27/22 19:47 Dose: 0 mcg/kg/min, 0 mls/hr Documented by: [id number] Titration: 01/27/22 18:59 Dose: 0.01 mcg/kg/min, 3.8 mls/hr Documented by: [id number] Cosigned by: [id number] Titration: 01/27/22 18:14 Dose: 0.01 mcg/kg/min, 3.8 mls/hr Documented by: [id number] Titration: 01/27/22 17:37 Dose: 0.03 mcg/kg/min, 11.5 mls/hr Documented by: [id number] Admin: 01/27/22 12:28 Dose: 0.05 mcg/kg/min, 19.1 mls/hr Documented by: [id number] Cosigned by: [id number] Titration: 01/27/22 12:28 Dose: 0 mcg/kg/min, 0 mls/hr Documented by: [id number] Cosigned by: [id number] Titration: 01/27/22 10:10 Dose: 0 mcg/kg/min, 0 mls/hr Documented by: [id number] Admin: 01/27/22 10:04 Dose: 0.05 mcg/kg/min, 19.1 mls/hr Documented by: [id number] Cosigned by: [id number] Sodium Chloride (Nss 1000ml) 1,000 mls @ 125 mls/hr IV .Q8H [facility] Stop: 02/26/22 12:43 Last Admin: 01/27/22 13:26 Dose: Not Given Documented by: [id number] Magnesium Sulfate/Dextrose (Magnesium Sulfate / D5w) 1 gm in 100 mls @ 50 mls/hr IV ONE ONE Stop: 01/27/22 14:43 Last Infusion: 01/27/22 15:42 Dose: 0 mls/hr Documented by: [id number] Admin: 01/27/22 13:35 Dose: 50 mls/hr Documented by: [id number] Lactated Ringer's (Lr) 1,000 mls @ 125 mls/hr IV .Q8H [facility] Stop: 02/26/22 12:43 Last Infusion: 01/28/22 13:55 Dose: 0 mls/hr Documented by: [id number] Admin: 01/28/22 13:17 Dose: 125 mls/hr Documented by: [id number] Infusion: 01/28/22 13:17 Dose: 125 mls/hr Documented by: [id number] Admin: 01/28/22 05:32 Dose: 125 mls/hr Documented by: [id number] Infusion: 01/28/22 05:32 Dose: 125 mls/hr Documented by: [id number] Admin: 01/27/22 21:55 Dose: 125 mls/hr Documented by: [id number] Infusion: 01/27/22 21:34 Dose: 125 mls/hr Documented by: [id number] Admin: 01/27/22 13:34 Dose: 125 mls/hr Documented by: [id number] Ceftriaxone Sodium 2,000 mg/ (Dextrose) 70 mls @ 100 mls/hr IV Q24H [facility]; Protocol Stop: 02/05/22 18:00 Last Infusion: 01/28/22 13:57 Dose: 0 mls/hr Documented by: [id number] Infusion: 01/28/22 13:55 Dose: 100 mls/hr Documented by: [id number] Admin: 01/28/22 13:16 Dose: 100 mls/hr Documented by: [id number] Infusion: 01/27/22 17:37 Dose: 0 mls/hr Documented by: [id number] Admin: 01/27/22 16:20 Dose: 100 mls/hr Documented by: [id number] Parenteral Electrolytes (Normosol-R) 1,000 mls @ 999 mls/hr IV .Q1H1M ONE Stop: 01/28/22 00:19 Last Infusion: 01/28/22 00:36 Dose: 0 mls/hr Documented by: [id number] Admin: 01/27/22 23:41 Dose: 999 mls/hr Documented by: [id number] Magnesium Sulfate/Dextrose (Magnesium Sulfate / D5w) 1 gm in 100 mls @ 50 mls/h r IV Q2H [facility] Stop: 01/28/22 11:44 Last Infusion: 01/28/22 13:12 Dose: 0 mls/hr Documented by: [id number] Admin: 01/28/22 09:47 Dose: 50 mls/hr Documented by: [id number] Infusion: 01/28/22 09:47 Dose: 50 mls/hr Documented by: [id number] Admin: 01/28/22 08:06 Dose: 50 mls/hr Documented by: [id number] Ciprofloxacin (Cipro / D5w) 400 mg in 200 mls @ 100 mls/hr IV Q12H [facility]; Protocol Stop: 02/12/22 07:59 Last Infusion: 01/29/22 11:07 Dose: 0 mls/hr Documented by: [id number] Admin: 01/29/22 08:22 Dose: 100 mls/hr Documented by: [id number] Sodium Chloride (Nss 1000ml) 500 mls @ 999 mls/hr IV .Q31M ONE Stop: 01/29/22 11:50 Last Infusion: 01/29/22 12:24 Dose: 0 mls/hr Documented by: [id number] Admin: 01/29/22 11:52 Dose: 999 mls/hr Documented by: [id number] Miscellaneous (Stat Iv Infusion Titration Per Protocol) 1 ea N/A NOW STA Stop: 01/27/22 10:02 Last Admin: 01/27/22 10:58 Dose: Not Given Documented by: [id number] Norepinephrine Bitartrate (Norepinephrine/D5w 4 Mg/250 Ml) Confirm Administered Dose 4 mg IV .STK-MED ONE Stop: 01/27/22 08:21 Last Admin: 01/27/22 10:07 Dose: Not Given Documented by: [id number] Ondansetron HCl (Ondansetron Inj 2 Mg/Ml 2 Ml Vial) 4 mg IV Q6H PRN PRN Reason: Nausea And Vomiting Stop: 02/26/22 12:43 Last Admin: 01/29/22 06:54 Dose: 4 mg Documented by: [id number] Potassium Chloride (Potassium Chloride 20 Meq/15 Ml Udc) 20 meq PO BID [facility] Stop: 01/29/22 09:01 Last Admin: 01/29/22 08:24 Dose: 20 meq Documented by: [id number] Admin: 01/28/22 20:36 Dose: 20 meq Documented by: [id number] Admin: 01/28/22 08:06 Dose: 20 meq Documented by: [id number] Admin: 01/27/22 20:32 Dose: 20 meq Documented by: [id number] Critical Care Time Critical Care Time: Yes Total Critical Care Time: 60 Critical care of 60 min performed to assess and manage high likelihood of life- threatening septic shock, involving labs and imaging performed with assessment to evaluate septic shock diagnosis with frequent reassessment. This time includes bedside time, treatment discussions with patient/family/consultants, documentation time and excludes procedure time. Medical Decision Making Differential Diagnosis Differential diagnosis: Etiologies such as viral syndrome, otitis, pharyngitis, pneumonia, influenza, meningitis, urinary tract infection, sepsis, bacteremia, as well as others were entertained. Medical Records Attestation: I reviewed the patient's medical records. Home Medications Current Medication List: was personally reviewed by me Laboratory Data Attestation: I reviewed the patient's lab results. Result diagrams: 01/29/22 05:28 01/29/22 05:28 Lab Results 01/27/22 01/27/22 01/27/22 Range/Units 08:02 08:02 08:02 WBC 2.82 L (4.8-10.8) K/uL RBC 4.96 (4.7-6.1) M/uL Hgb 14.8 (14.0-18.0) g/dL Hct 42.3 (42-52) % MCV 85.3 (80-100) fL MCH 29.8 (25-34) pg MCHC 35.0 (32-36) g/dL RDW Std Deviation 40.4 (36.4-46.3) fL RDW Coeff of Tresa 13.0 (11.5-14.5) % Plt Count 178 (130-400) K/uL MPV 10.4 (7.4-10.4) fL Immature Gran % (Auto) 1.1 % Neut % (Auto) 80.4 % Lymph % (Auto) 16.7 % Saline % (Auto) 1.1 % Eos % (Auto) 0.7 % Baso % (Auto) 0.0 % Neut # (Auto) 2.27 (1.4-6.5) K/uL Lymph # (Auto) 0.47 L (1.2-3.4) K/uL Saline # (Auto) 0.03 L (0.11-0.59) K/uL Eos # (Auto) 0.02 (0-0.5) K/uL Baso # (Auto) 0.00 (0-0.2) K/uL Immature Gran # (Auto) 0.03 H (0.00-0.02) K/uL PT 12.2 H (9.0-12.0) Seconds INR 1.2 H (0.9-1.1) APTT 23.2 (21.0-31.0) Seconds PTT Ratio 0.8 Sodium 139 (136-145) mmol/L Potassium 3.5 (3.5-5.1) mmol/L Chloride 103 (98-107) mmol/L Carbon Dioxide 22 (21-32) mmol/L Anion Gap 14 H (3-11) BUN 20 (6-23) mg/dl Creatinine 2.16 H (0.6-1.4) mg/dl Est Cr Clr Drug Dosing 51.6 ml/min Est GFR ( Amer) 39.6 ml/min Est GFR (Non-Af Amer) 34.2 ml/min BUN/Creatinine Ratio 9.3 L (10-20) Glucose 133 H (70-99(Fasting)) mg/dl Lactate (0.4-2.0) mmol/L Calcium 9.2 (8.5-10.1) mg/dl Magnesium 1.3 L (1.7-2.4) mg/dl Total Bilirubin 2.8 H (0.2-1.0) mg/dl AST 268 H (13-39) U/L ALT 131 H (7-52) U/L Alkaline Phosphatase 130 H (34-104) U/L Troponin I High Sens 31.3 H (0-20) pg/ml C-Reactive Protein 2.90 H (0-0.5) mg/dl Total Protein 7.0 (6.0-8.3) gm/dl Albumin 4.2 (3.4-5.0) gm/dl Globulin 2.8 (2.5-4.0) gm/dl Albumin/Globulin Ratio 1.5 (0.9-2) Procalcitonin (0-0.5) ng/ml Random Cortisol mcg/dl Urine Color Urine Appearance (Clear) Urine pH (4.5-7.5) Ur Specific [place] (1.000-1.030) Urine Protein (Negative) Urine Glucose (UA) (Negative) Urine Ketones (Negative) Urine Blood (Negative) Urine Nitrite (Negative) Urine Bilirubin (Negative) Urine Urobilinogen (Negative) Ur Leukocyte Esterase (Negative) Urine RBC (0-4) /hpf Urine WBC (0-5) /hpf Ur Epithelial Cells (0-5) /lpf Urine Bacteria (Negative) Urine Sperm (None Prsent) Nasal Screen MRSA (PCR) (Negative) SARS-CoV-2 (PCR) (Negative) Enterobacterales (PCR) (NotDetected) Klebsiella oxytoca PCR (NotDetected) mcr-1 Colistin Res Gene PCR (NotDetected) blaIMP Car res Gene PCR (NotDetected) KPC-Carbap Res Gene PCR (NotDetected) blaNDM Car Res Gene PCR (NotDetected) OXA-48 Carbapenem Resis Gene (PCR) (NotDetected) blaVIM Car Res Gene PCR (NotDetected) CTX-M Gene Resistance (PCR) (NotDetected) Bld Cult ID Panel PCR (NotDetected) 01/27/22 01/27/22 01/27/22 Range/Units 08:02 08:02 08:02 WBC (4.8-10.8) K/uL RBC (4.7-6.1) M/uL Hgb (14.0-18.0) g/dL Hct (42-52) % MCV (80-100) fL MCH (25-34) pg MCHC (32-36) g/dL RDW Std Deviation (36.4-46.3) fL RDW Coeff of Tresa (11.5-14.5) % Plt Count (130-400) K/uL MPV (7.4-10.4) fL Immature Gran % (Auto) % Neut % (Auto) % Lymph % (Auto) % Saline % (Auto) % Eos % (Auto) % Baso % (Auto) % Neut # (Auto) (1.4-6.5) K/uL Lymph # (Auto) (1.2-3.4) K/uL Saline # (Auto) (0.11-0.59) K/uL Eos # (Auto) (0-0.5) K/uL Baso # (Auto) (0-0.2) K/uL Immature Gran # (Auto) (0.00-0.02) K/uL PT (9.0-12.0) Seconds INR (0.9-1.1) APTT (21.0-31.0) Seconds PTT Ratio Sodium (136-145) mmol/L Potassium (3.5-5.1) mmol/L Chloride (98-107) mmol/L Carbon Dioxide (21-32) mmol/L Anion Gap (3-11) BUN (6-23) mg/dl Creatinine (0.6-1.4) mg/dl Est Cr Clr Drug Dosing ml/min Est GFR ( Amer) ml/min Est GFR (Non-Af Amer) ml/min BUN/Creatinine Ratio (10-20) Glucose (70-99(Fasting)) mg/dl Lactate (0.4-2.0) mmol/L Calcium (8.5-10.1) mg/dl Magnesium (1.7-2.4) mg/dl Total Bilirubin (0.2-1.0) mg/dl AST (13-39) U/L ALT (7-52) U/L Alkaline Phosphatase (34-104) U/L Troponin I High Sens (0-20) pg/ml C-Reactive Protein (0-0.5) mg/dl Total Protein (6.0-8.3) gm/dl Albumin (3.4-5.0) gm/dl Globulin (2.5-4.0) gm/dl Albumin/Globulin Ratio (0.9-2) Procalcitonin 26.76 H (0-0.5) ng/ml Random Cortisol 55.20 mcg/dl Urine Color Red Urine Appearance Turbid A (Clear) Urine pH 7.0 (4.5-7.5) Ur Specific [place] 1.020 (1.000-1.030) Urine Protein 3+ H (Negative) Urine Glucose (UA) Trace H (Negative) Urine Ketones Negative (Negative) Urine Blood 3+ H (Negative) Urine Nitrite Positive A (Negative) Urine Bilirubin 2+ H (Negative) Urine Urobilinogen Negative (Negative) Ur Leukocyte Esterase 1+ H (Negative) Urine RBC >30 H (0-4) /hpf Urine WBC >30 H (0-5) /hpf Ur Epithelial Cells >30 H (0-5) /lpf Urine Bacteria Negative (Negative) Urine Sperm Present A (None Prsent) Nasal Screen MRSA (PCR) (Negative) SARS-CoV-2 (PCR) (Negative) Enterobacterales (PCR) (NotDetected) Klebsiella oxytoca PCR (NotDetected) mcr-1 Colistin Res Gene PCR (NotDetected) blaIMP Car res Gene PCR (NotDetected) KPC-Carbap Res Gene PCR (NotDetected) blaNDM Car Res Gene PCR (NotDetected) OXA-48 Carbapenem Resis Gene (PCR) (NotDetected) blaVIM Car Res Gene PCR (NotDetected) CTX-M Gene Resistance (PCR) (NotDetected) Bld Cult ID Panel PCR (NotDetected) 01/27/22 01/27/22 01/27/22 Range/Units 08:09 08:30 08:57 WBC (4.8-10.8) K/uL RBC (4.7-6.1) M/uL Hgb (14.0-18.0) g/dL Hct (42-52) % MCV (80-100) fL MCH (25-34) pg MCHC (32-36) g/dL RDW Std Deviation (36.4-46.3) fL RDW Coeff of Tresa (11.5-14.5) % Plt Count (130-400) K/uL MPV (7.4-10.4) fL Immature Gran % (Auto) % Neut % (Auto) % Lymph % (Auto) % Saline % (Auto) % Eos % (Auto) % Baso % (Auto) % Neut # (Auto) (1.4-6.5) K/uL Lymph # (Auto) (1.2-3.4) K/uL Saline # (Auto) (0.11-0.59) K/uL Eos # (Auto) (0-0.5) K/uL Baso # (Auto) (0-0.2) K/uL Immature Gran # (Auto) (0.00-0.02) K/uL PT (9.0-12.0) Seconds INR (0.9-1.1) APTT (21.0-31.0) Seconds PTT Ratio Sodium (136-145) mmol/L Potassium (3.5-5.1) mmol/L Chloride (98-107) mmol/L Carbon Dioxide (21-32) mmol/L Anion Gap (3-11) BUN (6-23) mg/dl Creatinine (0.6-1.4) mg/dl Est Cr Clr Drug Dosing ml/min Est GFR ( Amer) ml/min Est GFR (Non-Af Amer) ml/min BUN/Creatinine Ratio (10-20) Glucose (70-99(Fasting)) mg/dl Lactate 4.6 H* (0.4-2.0) mmol/L Calcium (8.5-10.1) mg/dl Magnesium (1.7-2.4) mg/dl Total Bilirubin (0.2-1.0) mg/dl AST (13-39) U/L ALT (7-52) U/L Alkaline Phosphatase (34-104) U/L Troponin I High Sens (0-20) pg/ml C-Reactive Protein (0-0.5) mg/dl Total Protein (6.0-8.3) gm/dl Albumin (3.4-5.0) gm/dl Globulin (2.5-4.0) gm/dl Albumin/Globulin Ratio (0.9-2) Procalcitonin (0-0.5) ng/ml Random Cortisol mcg/dl Urine Color Urine Appearance (Clear) Urine pH (4.5-7.5) Ur Specific [place] (1.000-1.030) Urine Protein (Negative) Urine Glucose (UA) (Negative) Urine Ketones (Negative) Urine Blood (Negative) Urine Nitrite (Negative) Urine Bilirubin (Negative) Urine Urobilinogen (Negative) Ur Leukocyte Esterase (Negative) Urine RBC (0-4) /hpf Urine WBC (0-5) /hpf Ur Epithelial Cells (0-5) /lpf Urine Bacteria (Negative) Urine Sperm (None Prsent) Nasal Screen MRSA (PCR) Negative (Negative) SARS-CoV-2 (PCR) (Negative) Enterobacterales (PCR) DETECTED A (NotDetected) Klebsiella oxytoca PCR DETECTED A (NotDetected) mcr-1 Colistin Res Gene PCR Not Detected (NotDetected) blaIMP Car res Gene PCR Not Detected (NotDetected) KPC-Carbap Res Gene PCR Not Detected (NotDetected) blaNDM Car Res Gene PCR Not Detected (NotDetected) OXA-48 Carbapenem Resis Gene (PCR) Not Detected (NotDetected) blaVIM Car Res Gene PCR Not Detected (NotDetected) CTX-M Gene Resistance (PCR) Not Detected (NotDetected) Bld Cult ID Panel PCR See PCR Comment (NotDetected) 01/27/22 01/27/22 01/27/22 Range/Units 08:57 10:11 10:11 WBC (4.8-10.8) K/uL RBC (4.7-6.1) M/uL Hgb (14.0-18.0) g/dL Hct (42-52) % MCV (80-100) fL MCH (25-34) pg MCHC (32-36) g/dL RDW Std Deviation (36.4-46.3) fL RDW Coeff of Tresa (11.5-14.5) % Plt Count (130-400) K/uL MPV (7.4-10.4) fL Immature Gran % (Auto) % Neut % (Auto) % Lymph % (Auto) % Saline % (Auto) % Eos % (Auto) % Baso % (Auto) % Neut # (Auto) (1.4-6.5) K/uL Lymph # (Auto) (1.2-3.4) K/uL Saline # (Auto) (0.11-0.59) K/uL Eos # (Auto) (0-0.5) K/uL Baso # (Auto) (0-0.2) K/uL Immature Gran # (Auto) (0.00-0.02) K/uL PT (9.0-12.0) Seconds INR (0.9-1.1) APTT (21.0-31.0) Seconds PTT Ratio Sodium (136-145) mmol/L Potassium (3.5-5.1) mmol/L Chloride (98-107) mmol/L Carbon Dioxide (21-32) mmol/L Anion Gap (3-11) BUN (6-23) mg/dl Creatinine (0.6-1.4) mg/dl Est Cr Clr Drug Dosing ml/min Est GFR ( Amer) ml/min Est GFR (Non-Af Amer) ml/min BUN/Creatinine Ratio (10-20) Glucose (70-99(Fasting)) mg/dl Lactate 2.9 H* (0.4-2.0) mmol/L Calcium (8.5-10.1) mg/dl Magnesium (1.7-2.4) mg/dl Total Bilirubin (0.2-1.0) mg/dl AST (13-39) U/L ALT (7-52) U/L Alkaline Phosphatase (34-104) U/L Troponin I High Sens 77.3 H* D (0-20) pg/ml C-Reactive Protein (0-0.5) mg/dl Total Protein (6.0-8.3) gm/dl Albumin (3.4-5.0) gm/dl Globulin (2.5-4.0) gm/dl Albumin/Globulin Ratio (0.9-2) Procalcitonin (0-0.5) ng/ml Random Cortisol mcg/dl Urine Color Urine Appearance (Clear) Urine pH (4.5-7.5) Ur Specific [place] (1.000-1.030) Urine Protein (Negative) Urine Glucose (UA) (Negative) Urine Ketones (Negative) Urine Blood (Negative) Urine Nitrite (Negative) Urine Bilirubin (Negative) Urine Urobilinogen (Negative) Ur Leukocyte Esterase (Negative) Urine RBC (0-4) /hpf Urine WBC (0-5) /hpf Ur Epithelial Cells (0-5) /lpf Urine Bacteria (Negative) Urine Sperm (None Prsent) Nasal Screen MRSA (PCR) (Negative) SARS-CoV-2 (PCR) NEGATIVE (Negative) Enterobacterales (PCR) (NotDetected) Klebsiella oxytoca PCR (NotDetected) mcr-1 Colistin Res Gene PCR (NotDetected) blaIMP Car res Gene PCR (NotDetected) KPC-Carbap Res Gene PCR (NotDetected) blaNDM Car Res Gene PCR (NotDetected) OXA-48 Carbapenem Resis Gene (PCR) (NotDetected) blaVIM Car Res Gene PCR (NotDetected) CTX-M Gene Resistance (PCR) (NotDetected) Bld Cult ID Panel PCR (NotDetected) ECG Data Attestation: I personally reviewed and interpreted this ECG as follows: Indication: + tachycardia Rate (beats per minute): 134 Rhythm: + sinus tachycardia ECG Intervals/blocks: + Normal QRS and + Normal QT ECG [place]: + Normal ECG ST segments: + Normal ST segments MDM Narrative An order was placed for continuous cardiac monitoring. The monitor shows a rate of _117_ with _sinus tachycardia_ rhythm. This is an ill appearing 51 yo male who presented s/p TURP with fever, fatigue, dehydration. Patient appears to have evolving sepsis. Septic protocol orders started by nursing staff and Dr. Sanchez initially evaluated the patient. Cefepime initially started, Zosyn added as a precaution. Magnesium added for repletion and tylenol given for fever. Patient rechecked multiple times by both Dr. Sanchez and myself. HR initially responded to IVF and BP slow to improve. Patient given >30 ml/kg with eventual improvement. Patient admitted to the ICU. Patient with ERUM and urine appears to be the source of infection as suspected given recent surgery. Patient sent for CT a/p to r/o accompanying obstructive uropathy. No ureterolithiasis. Transaminitis without obvious liver/GB pathology, likely reactive. Troponin elevated however to symptoms to suggest ACS. I suspect secondary to infection and ERUM. Patient continued to report improvement and VS continued to improve. Patient and kept updated on all results and were in agreement with the plan. Impression & Plan Septic shock, ERUM (acute kidney injury), Hypomagnesemia, Elevated troponin, Acute UTI (urinary tract infection), Transaminitis, Generalized weakness Discharge Plan Visit Data Chief Complaint: Dehydration Stated Complaint: FEVER, DEHYDRATED ED Midlevel Provider: Donny Sanchez Discharge Problem: Septic shock, ERUM (acute kidney injury), Hypomagnesemia, Elevated troponin, Acute UTI (urinary tract infection), Transaminitis, Generalized weakness Patient Disposition: Admitted As Inpatient Discharge Instructions Interventions: ED Discharge Assessment Last Done: 01/27/22 12:23
[2022-01-27] MEDS ORDERED: PIPERACILLIN/TAZOBACTAM 4.5 GM/120 ML BAG IV ONE (08:27)
[2022-01-27] MEDS ORDERED: ACETAMINOPHEN 1000 MG/100 ML IV IV STA (08:30)
[2022-01-27 08:36] LABS: Appearance Urine Turbid (Clear); Bilirubin Urine 2+ (Negative); Blood Urine 3+ (Negative); Color Urine Red; Glucose Urine UA Trace (Negative); Ketones Urine Negative (Negative); Leukocyte Esterase Urine 1+ (Negative); Nitrite Urine Positive (Negative); Protein Urine 3+ (Negative); Urobilinogen Urine Negative (Negative)
[2022-01-27 08:40] LABS: INR 1.2 (0.9-1.1); Partial Thromboplastin Ratio 0.8; Partial Thromboplastin Time 23.2 Seconds (21.0-31.0); Prothrombin Time 12.2 Seconds (9.0-12.0)
[2022-01-27 08:44] LABS: Eosinophils # (auto) 0.02 K/uL (0-0.5); Eosinophils % (auto) 0.7 %; Hematocrit (blood only) 42.3 % (42-52); Hemoglobin 14.8 g/dL (14.0-18.0); Immature Granulocytes # (auto) 0.03 K/uL (0.00-0.02); Immature Granulocytes % (auto) 1.1 %; Lymphocytes # (auto) 0.47 K/uL (1.2-3.4); Lymphocytes % (auto) 16.7 %; Mean Corpuscular Hemoglobin 29.8 pg (25-34); Mean Corpuscular Volume 85.3 fL (80-100); Mean Platelet Volume 10.4 fL (7.4-10.4); Monocytes # (auto) 0.03 K/uL (0.11-0.59); Monocytes % (auto) 1.1 %; Neutrophils # (auto) 2.27 K/uL (1.4-6.5); Neutrophils % (auto) 80.4 %; Platelet Count 178 K/uL (130-400); RDW Standard Deviation 40.4 fL (36.4-46.3); Red Blood Count 4.96 M/uL (4.7-6.1); White Blood Count 2.82 K/uL (4.8-10.8)
[2022-01-27 08:48] LABS: Bacteria Urine Negative (Negative); Epithelial Cell Urine >30 /lpf (0-5); RBC Urine >30 /hpf (0-4); Sperm Urine Present (None Prsent); WBC Urine >30 /hpf (0-5)
--- NOTE | 2022-01-27 08:48 | XRay Report ---
XR chest 1V portable HISTORY: 51 years-old Male SEPSIS acute sepsis COMPARISON: Chest radiograph 12/31/2021 TECHNIQUE: Portable AP view of the chest FINDINGS: The cardiomediastinal and hilar silhouettes are within normal limits. There is no pneumothorax, pleur al effusion, airspace consolidation or overt pulmonary edema. Minimal left lung base densities are li [place] secondary to summation density. The bones appear grossly intact. IMPRESSION: No acute process. ACT 112: Negative or not required by law. The above report was generated using voice recognition software. It may contain grammatical, syntax o r spelling errors. Electronically signed by: Fer Lucero M.D. 01/27/2022 8:46 AM
[2022-01-27 08:56] LABS: Troponin I High Sensitivity 31.3 pg/ml (0-20)
[2022-01-27 09:03] LABS: Albumin Globulin Ratio 1.5 (0.9-2); Albumin Level 4.2 gm/dl (3.4-5.0); BUN Creatinine Ratio 9.3 (10-20); Bilirubin,Total 2.8 mg/dl (0.2-1.0); C Reactive Protein 2.9 mg/dl (0-0.5); Calcium 9.2 mg/dl (8.5-10.1); Creatinine Clr Calc Pharmacy 51.6 ml/min; Est GFR (African American) 39.6 ml/min; Est GFR (Non-African American) 34.2 ml/min; Globulin 2.8 gm/dl (2.5-4.0); Magnesium 1.3 mg/dl (1.7-2.4); Potassium 3.5 mmol/L (3.5-5.1)
[2022-01-27] MEDS ORDERED: SODIUM CHLORIDE 0.9% 1000ML 500 ML IV ONE (09:32)
[2022-01-27] MEDS ORDERED: STAT IV Infusion **Titration per Protocol STA (10:01)
[2022-01-27] MEDS: NOREPINEPHRINE/D5W 4 MG/250 ML PLCT IV SCH ×2 (10:04→12:28)
--- NOTE | 2022-01-27 10:21 | History & Physical Report ---
Date of Service January 27, 2022 Assessment & Plan (1) Septic shock: Plan: - Suspected source given recent history of TURP and rosales removal. * CT A/P: Mild left-sided hydronephrosis and hydroureter with no evidence for renal or ureteral calculus. Suspicion of abnormal bladder wall thickening of the floor of the bladder along with diffuse mucosal thickening of the bladder wall characteristic of chronic bladder outlet obstruction. - WBC 2.82, initial lactate 4.6, down 2.9 after IVF. CRP 2.90, PCT 26.76. Elevated troponin, LFTS and ERUM. - Initially presented with BP 70s/50s requiring IVF resuscitation-- 4L NS boluses, as well as Levophed for BP support. BP responded quickly to vasopressors with MAP now maintaining > 65. Case discussed with physician relations specialist, Dr. Reese. Will still admit to ICU for now for continued close monitoring. - ABX initiated in ED prior to BMP given severity of illness--received vancomycin and Zosyn. Given ERUM, will switch to daptomycin with Zosyn for now. - Blood and urine cultures collected and sent. - Consult placed to urology. - Trend lactate until <2.0. (2) UTI (urinary tract infection): Plan: - Management as above. (3) ERUM (acute kidney injury): Plan: - Creatinine 2.16, baseline ~1.2. - Patient received 4L NS boluses per sepsis protocol, will be continued on maintenance IVF NS 125 cc/hr. - Will require broad-spectrum antibiotics, will have to watch renal function with these. Otherwise, avoid nephrotoxins and renally dose medications as able. - Follow renal function on routine labs. (4) Hypomagnesemia: Plan: - Mg 1.3, will replete with 1 g, recheck levels. - Avoid aggressive repletion given ERUM. (5) Elevated troponin: Plan: - Initial hs trop 21 3, repeat 77.3. EKG showed sinus tachycardia without ST segment or T wave changes. - Suspect this is demand ischemia/elevated in the setting of severe illness, sepsis. - Obtain daily EKGs. (6) Elevated LFTs: Plan: - AST 268, ALT 131, alk phos 130, T bili 2.8. Significantly elevated from labs done on 01/11/2022. - CT A/P did not show any acute pathology of liver or gallbladder, could consider liver ultrasound for further evaluation. - Follow liver function on routine labs. (7) Prostate cancer: Plan: - TURP on 01/11 was performed for BPH not responsive to medical management. Incidentally, prostate cancer was identified on 1 specimen slide. Per urology note, Samia 3+3 prostate cancer. No previous history of malignancy. - Patient discussed treatment options with urology, plan for now is to have follow-up in 2-3 months to obtain PSA and discuss further surveillance versus management. (8) Diabetes: Plan: - Hold Ozempic. - ICU hyperglycemic protocol in place, will switch to SSI when transitioned to floor bed. (9) Insomnia: Plan: - Continue Lunesta at bedtime as needed. (10) Hyperlipidemia: Plan: - Hold statin for now given elevated LFTs. (11) CHELY on CPAP: Plan: - Order placed for CPAP at night. Plan: - Admit to ICU for pressor support. - SCDs for DVT PPx. - Full code. -total critical care time 60 minutes -- complex care coordination of this critically ill patient with septic shock -- including coordination of care with ICU, urology, abx and pressor management, discussing care with pt & , discussing care with hospitalist attending, etc. History of Present Illness Chief Complaint: Rigors, febrile s/p TURP and subsequent Rosales removal yesterday Primary Care Provider: Rommel Dey Jose is a 51-year-old male with past medical history significant for BPH and newly diagnosed prostate cancer, diabetes, hyperlipidemia, insomnia, and sleep apnea who presents today from home. 01/11, he had a TURP procedure done by Dr. Perez due to ongoing BPH symptoms and failing medical management. He handled the procedure well and was discharged the next day with Rosales catheter in place, which was removed yesterday, 01/26. Since then, he had been urinating blood and had decreased appetite. He did present to the ED on 01/25 with hematuria and intense feeling of needing to void despite catheter in place, patient was sent home with instructions to remain well-hydrated and follow-up with urology following day as scheduled for catheter removal. Otherwise had been well until this morning around 5 AM when he woke up with extreme chills, diaphoresis, and recorded temperature of 103 at home. Denies chest pain, palpitations, shortness of breath, cough, abdominal pain, nausea, vomiting. Initially presented to the ED with hypotension, 70s/50s, heart rate 120s, febrile 103F, SPO2 >95% on room air, however did desat down to low 90s, placed on 2L NC doing well. Labs significant for WBC 2.82, initial lactate 4.6, procalcitonin 26.76, CRP 2.90. Also significant for creatinine 2.16, magnesium 1.3, T bili 2.8, AST 268, ALT 131, alk phos 130. UA with nitrate, leukoesterase, white blood cells, blood, protein, bilirubin. CT A/P with mild left-sided hydronephrosis and hydroureter with no evidence for renal or ureteral calculus. Suspicion of abnormal bladder wall thickening of floor bladder along with diffuse mucosal thickening of bladder wall characteristic of chronic bladder outlet obstruction. Allergies Allergy/AdvReac Type Severity Reaction Status Date / Time No Known Allergies Allergy Verified 01/26/22 12:55 Home Medications Medication Instructions Recorded Confirmed Type alprazolam 0.5 mg tablet 0.5 mg PO DAILY PRN tab 04/20/19 01/26/22 History atorvastatin 20 mg tablet 20 mg PO QAM #90 tab 04/20/19 01/26/22 History eszopiclone 1 mg tablet 1 mg PO QPM PRN tab 04/20/19 01/26/22 History epinephrine 0.3 mg/0.3 mL 0.3 mg IM Q10M PRN #2 ea 05/08/21 01/26/22 Rx injection, auto-injector (EpiPen) multivitamin 1 tab PO QAM 01/07/22 01/26/22 History docusate sodium 100 mg capsule 100 mg PO BID #30 cap 01/12/22 01/26/22 Rx (Colace) oxycodone 5 mg tablet 5 mg PO Q8H PRN #5 tab 01/12/22 01/26/22 Rx phenazopyridine 100 mg tablet 100 mg PO BID PRN #7 tab 01/12/22 01/26/22 Rx (Pyridium) alfuzosin 10 mg tablet,extended 10 mg PO QPM 01/25/22 01/26/22 History release 24 hr semaglutide 1 mg/dose (4 mg/3 mL) 1 mg SUBCUT WK 01/25/22 01/26/22 History subcutaneous pen injector (Ozempic) sildenafil (pulm.hypertension) 20 100 mg PO DIRECTED PRN 01/25/22 01/26/22 History mg tablet Past Med/Surg History Medical History Benign prostatic hyperplasia with urinary obstruction Chronic kidney disease, stage I Diabetes History of COVID-19 07/2021 Flu-like symptoms, fever > resolved Hyperlipidemia 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 Severe obstructive sleep apnea Per records Surgical History H/O elbow surgery LEFT S/P ACL reconstruction LEFT S/P bladder repair S/P colonoscopy 2019 Status post finger joint fusion RIGHT RING FINGER Status post hip surgery LEFT Family History Father Hypertension Diabetes Family/Other Bladder cancer Social History Smoking Status: Never smoker Second Hand Exposure: No; Hx Alcohol Use: Yes Alcohol type: beer and wine Hx Substance Use: No Preferred Language: Kiswahili Communication Ability: Effective Media Operator Required: No Beliefs That Will Affect Care: None marital status: Current Living Situation: Family Current Living Situation Comment: lives with and children current occupational status: employed Feels Safe at Home: Yes Safety Concerns: Feels Safe At This Time Assistive Devices: None Review of Systems Review of Systems: Constitutional: Decreased appetite since yesterday, chills and fever since this a.m.; noweakness, fatigue, myalgias night sweats Eyes: No diplopia, no worsening or blurred vision ENT: normal hearing, no trouble swallowing Respiratory: No cough, sputum, dyspnea at rest or on exertion Cardiovascular: No chest pain, tightness or palpitations Abdomen: No pain, nausea, vomiting, diarrhea or constipation : Hematuria since yesterday, denies dysuria, increased urgency/frequency, urinary retention Musculoskeletal: No joint pain, calf pain, swelling Neurologic: No weakness, numbness/tingling, or balance problems Psychiatric: No anxiety or depression Skin: No rash or itch Physical Exam Physical Exam: General: awake, alert, no apparent distress Head: Normocephalic, atraumatic ENT: PERRL, EOMI, no pharyngeal exudate, mucous membranes moist Chest: Clear to auscultation, on room air, no adventitious breath sounds Cardiac: tachycardic, regular rhythm, no murmur, no JVD, normal peripheral pulses, good capillary refill Abdominal: NABS x 4 quadrants, soft, nontender to palpation, no rebound, guarding or tenderness Extremities: Normal inspection, no peripheral edema or erythema, calfs nontender to palpation Psych: Normal mood and affect Neuro: AAO x 3, strength intact bilaterally and rated 5/5, no motor deficits, speech is clear, no peripheral sensory deficits Skin: no rash or erythema Results & Data Results & Data ([facility]) Vital Signs (Past 12 Hours) Vital Signs Temp Pulse Resp BP Pulse Ox 01/27/22 10:11 93 01/27/22 10:03 39.1 C H 01/27/22 09:45 22 93 01/27/22 09:42 113 H 25 H 80/52 L 91 01/27/22 09:35 117 H 18 87/51 L 95 01/27/22 09:25 115 H 26 H 82/50 L 92 01/27/22 09:24 112 H 24 83/50 L 92 01/27/22 09:17 118 H 21 80/54 L 93 01/27/22 09:15 24 93 01/27/22 09:10 121 H 17 88/56 L 93 01/27/22 09:05 120 H 29 H 80/59 L 93 01/27/22 09:01 123 H 16 94/52 L 92 01/27/22 09:00 122 H 21 92 01/27/22 08:55 119 H 31 H 85/57 L 93 01/27/22 08:50 120 H 27 H 83/58 L 93 01/27/22 08:45 120 H 15 85/49 L 94 01/27/22 08:40 122 H 21 87/51 L 96 01/27/22 08:35 123 H 20 86/52 L 96 01/27/22 08:30 127 H 21 86/49 L 96 01/27/22 08:29 124 H 22 79/57 L 96 01/27/22 08:26 122 H 16 77/58 L 95 07/06/22 08:20 122 H 20 76/56 L 98 01/27/22 08:17 120 H 21 77/50 L 98 01/27/22 08:13 123 H 24 70/50 L 96 01/27/22 08:12 123 H 23 96 01/27/22 07:56 39.4 C H 01/27/22 07:54 128 H 28 H 95 01/27/22 07:44 37.9 C H 133 H 22 75/39 L 95 Laboratory Results Abnormal lab results 01/27/22 01/27/22 01/27/22 Range/Units 08:02 08:02 08:02 WBC 2.82 L (4.8-10.8) K/uL Lymph # (Auto) 0.47 L (1.2-3.4) K/uL [place] # (Auto) 0.03 L (0.11-0.59) K/uL Immature Gran # (Auto) 0.03 H (0.00-0.02) K/uL PT 12.2 H (9.0-12.0) Seconds INR 1.2 H (0.9-1.1) Anion Gap 14 H (3-11) Creatinine 2.16 H (0.6-1.4) mg/dl BUN/Creatinine Ratio 9.3 L (10-20) Glucose 133 H (70-99(Fasting)) mg/dl Lactate (0.4-2.0) mmol/L Magnesium 1.3 L (1.7-2.4) mg/dl Total Bilirubin 2.8 H (0.2-1.0) mg/dl AST 268 H (13-39) U/L ALT 131 H (7-52) U/L Alkaline Phosphatase 130 H (34-104) U/L Troponin I High Sens 31.3 H (0-20) pg/ml C-Reactive Protein 2.90 H (0-0.5) mg/dl Procalcitonin (0-0.5) ng/ml Urine Appearance (Clear) Urine Protein (Negative) Urine Glucose (UA) (Negative) Urine Blood (Negative) Urine Nitrite (Negative) Urine Bilirubin (Negative) Ur Leukocyte Esterase (Negative) Urine RBC (0-4) /hpf Urine WBC (0-5) /hpf Ur Epithelial Cells (0-5) /lpf Urine Sperm (None Prsent) 01/27/22 01/27/22 01/27/22 Range/Units 08:02 08:02 08:30 WBC (4.8-10.8) K/uL Lymph # (Auto) (1.2-3.4) K/uL [place] # (Auto) (0.11-0.59) K/uL Immature Gran # (Auto) (0.00-0.02) K/uL PT (9.0-12.0) Seconds INR (0.9-1.1) Anion Gap (3-11) Creatinine (0.6-1.4) mg/dl BUN/Creatinine Ratio (10-20) Glucose (70-99(Fasting)) mg/dl Lactate 4.6 H* (0.4-2.0) mmol/L Magnesium (1.7-2.4) mg/dl Total Bilirubin (0.2-1.0) mg/dl AST (13-39) U/L ALT (7-52) U/L Alkaline Phosphatase (34-104) U/L Troponin I High Sens (0-20) pg/ml C-Reactive Protein (0-0.5) mg/dl Procalcitonin 26.76 H (0-0.5) ng/ml Urine Appearance Turbid A (Clear) Urine Protein 3+ H (Negative) Urine Glucose (UA) Trace H (Negative) Urine Blood 3+ H (Negative) Urine Nitrite Positive A (Negative) Urine Bilirubin 2+ H (Negative) Ur Leukocyte Esterase 1+ H (Negative) Urine RBC >30 H (0-4) /hpf Urine WBC >30 H (0-5) /hpf Ur Epithelial Cells >30 H (0-5) /lpf Urine Sperm Present A (None Prsent) 01/27/22 01/27/22 Range/Units 10:11 10:11 WBC (4.8-10.8) K/uL Lymph # (Auto) (1.2-3.4) K/uL [place] # (Auto) (0.11-0.59) K/uL Immature Gran # (Auto) (0.00-0.02) K/uL PT (9.0-12.0) Seconds INR (0.9-1.1) Anion Gap (3-11) Creatinine (0.6-1.4) mg/dl BUN/Creatinine Ratio (10-20) Glucose (70-99(Fasting)) mg/dl Lactate 2.9 H* (0.4-2.0) mmol/L Magnesium (1.7-2.4) mg/dl Total Bilirubin (0.2-1.0) mg/dl AST (13-39) U/L ALT (7-52) U/L Alkaline Phosphatase (34-104) U/L Troponin I High Sens 77.3 H* D (0-20) pg/ml C-Reactive Protein (0-0.5) mg/dl Procalcitonin (0-0.5) ng/ml Urine Appearance (Clear) Urine Protein (Negative) Urine Glucose (UA) (Negative) Urine Blood (Negative) Urine Nitrite (Negative) Urine Bilirubin (Negative) Ur Leukocyte Esterase (Negative) Urine RBC (0-4) /hpf Urine WBC (0-5) /hpf Ur Epithelial Cells (0-5) /lpf Urine Sperm (None Prsent) Diagnostic Findings Chest X-Ray 01/27/22 08:15 XR chest 1V portable HISTORY: 51 years-old Male SEPSIS acute sepsis COMPARISON: Chest radiograph 12/31/2021 TECHNIQUE: Portable AP view of the chest FINDINGS: The cardiomediastinal and hilar silhouettes are within normal limits. There is no pneumothorax, pleural effusion, airspace consolidation or overt pulmonary edema. Minimal left lung base densities are likely secondary to summation density. The bones appear grossly intact. IMPRESSION: No acute process. ACT 112: Negative or not required by law. The above report was generated using voice recognition software. It may contain grammatical, syntax or spelling errors. Electronically signed by: Fer Lucero M.D. 01/27/2022 8:46 AM Abdomen/Pelvis CT 01/27/22 09:09 CT abd pelvis wo con CLINICAL HISTORY: hematuria, recent turp, pres c/f urosepsis COMPARISON STUDY: 04/13/2015 CT DOSE: 826.79 mGy.cm TECHNIQUE: Standard CT of the Abdomen and Pelvis was performed without IV contrast. The patient did not receive oral contrast. A dose lowering technique was utilized adhering to the principles of ALARA. FINDINGS: Lung base: There is minimal dependent atelectasis at the lung bases posteriorly. Abdominal cavity: There is no evidence for abdominal mass, adenopathy or ascites. Liver: The liver is homogeneous in attenuation on these limited noncontrast images.. Spleen: The spleen is homogeneous in attenuation on these limited noncontrast images. Pancreas: The pancreas is homogeneous in attenuation on these limited noncontrast images. Gall Bladder: The gallbladder is well distended with no evidence for cholelithiasis, wall thickening or pericholecystic edema.. Adrenal glands: The adrenal glands are normal in size and attenuation on these limited noncontrast images. Kidneys and bladder: The kidneys are homogeneous in attenuation on these limited noncontrast images. There is mild hydronephrosis and hydroureter present on the left to the level of the bladder. There is no evidence for renal or ureteral calculus. There is evidence for asymmetric mucosal thickening involving the floor the bladder which appears to be etiology of the obstruction. Diffuse bladder wall thickening is also present with no evidence for bladder calculus. This is most characteristic of chronic bladder outlet obstruction. No contrast was provided and evaluation of the bladder is limited. There is no right-sided hydronephrosis or hydroureter. There are no renal calculi or renal masses. Bowel: There is small hiatal hernia. The bowel loops are normally placed within the abdomen and pelvis without evidence for dilatation or obstruction. There is no evidence for mass lesion. There is mild sigmoid diverticulosis without evidence for diverticulitis. There are no inflammatory changes present. There is no evidence for free air. There is a normal appendix in the right lower quadrant. : There is no evidence for pelvic mass or adenopathy. The prostate is mildly enlarged. Vasculature: There is no evidence for focal aneurysmal dilatation of the abdominal aorta. Osseous structures: There is no acute osseous pathology. Mild degenerative changes are seen involving the lower lumbar spine. IMPRESSION: 1. Mild left-sided hydronephrosis and hydroureter with no evidence for renal or ureteral calculus. 2. However, there is suspicion of abnormal bladder wall thickening of the floor of the bladder along with diffuse mucosal thickening of the bladder wall characteristic of chronic bladder outlet obstruction. No IV contrast was provided and the bladder wall cannot be fully evaluated by this study. 3. No other evidence for acute intra-abdominal or pelvic abnormality on these limited noncontrast images. 4. Additional nonacute findings are delineated above. ACT 112: Negative or not required by law. Electronically signed by: Slade Escudero M.D. 01/27/2022 10:41 AM ECG Additional Comments: Sinus tachycardia Otherwise normal ECG When compared with ECG of 31-DEC-2021 09:23, Vent. rate has increased BY [address] segment or T wave changes noted Code Status & VTE Plan Code Status Full code. Critical Care Time Critical Care Time: Yes Total Critical Care Time: 60 Supervising Physician Co-Signing Physician Notes Attending Attestation & Admission Note: Pt seen/examined, chart reviewed, care plan d/w RONIT Delacruz. I agree w/ the avendano components of her documentation. Pleasant 51yo male with BPH s/p TURP on 01/11/22. Pathology from his TURP unfortunately showed evidence of prostate ca. He was d/c home with rosales in place and had such removed in the office on 01/26/22. He did pass his voiding trial by report. Dr Perez discussed his prostate ca diagnosis extensively with him in the office. Now presents with fevers/chills/weakness beginning early this am. Upon ER presentation he had evidence of septic shock requiring 30+cc/kg of fluid resuscitation followed by institution of pressor therapy for refractory hypotension. Broad-spectrum IV abx given. Source - catheter-associated UTI (+/-prostatitis) in the setting of recent TURP. During my assessment his MAP had improved to ~65. PMH/PSH/allergies/meds/sochx/famhx - reviewed vitals - tachy, hypotensive, febrile gen - looks sick, but NAD, awake/alert mouth - MM dry, mildly cyanotic lips neck - no JVD heart - tachy, s1 s2, no murmur lungs - CTA b/l abd - soft, NT, ND, BS+, no flank tenderness to palpation ext - cool extremities but pulses are 1-2+ b/l, no edema labs reviewed CT a/p reviewed cxr reviewed A/P: 1. septic shock 2nd to catheter-associated UTI in the setting of recent TURP procedure on 01/11/22. 2. BPH s/p TURP. 3. new dx of prostate cancer on pathology from TURP. 4. ERUM - likely sepsis-associated ATN; can't rule out element of obstruction (hydronephrosis seen on CT, etc). 5. hypomagnesemia. 6. abnormal LFTs - due to #1? other? Cont levophed to maintain MAP >65; IV fluids; serial labs (CMP, etc); broad- spectrum IV antibiotic - would continue MRSA/enterococcal coverage with daptomycin given his recent surgery but defer that decision to ICU attending. Cont zosyn (or cefepime). Replace low mag. If LFTs cont to remain high then consider RUQ u/s. Dionicio Villa MD PG Care Time/CCT Total # of Minutes Spent Total Time Spent with Patient: Total time spent is greater than 50% in coordination of care (as documented) at patient's floor/unit and/or counseling patient: Critical Care Time: Yes Total Critical Care Time: 60 Coding Level of Care Code None Diagnoses Septic shock A41.9; R65.21 Prostate cancer C61 Diabetes E11.9 Insomnia G47.00 CHELY on CPAP G47.33; Z99.89 Hyperlipidemia E78.5 UTI (urinary tract infection) N39.0 Elevated LFTs R79.89 ERUM (acute kidney injury) N17.9 Hypomagnesemia E83.42 Elevated troponin R77.8 Additional Codes Critical Care Time - Critical Care Time: Yes ([id number])
--- NOTE | 2022-01-27 10:34 | Communication Note ---
Date of Service: January 27, 2022 This patient was seen in concert with Dr. Ward and we discussed and agreed upon the history, physical, assessment, and plan. See attending's note for det ails. Resident Activity Tracking Resident Involvement: Resident Care Provided Care Provided: Adult ED
--- NOTE | 2022-01-27 10:42 | CT Scan Report ---
CT abd pelvis wo con CLINICAL HISTORY: hematuria, recent turp, pres c/f urosepsis COMPARISON STUDY: 04/13/2015 CT DOSE: 826.79 mGy.cm TECHNIQUE: Standard CT of the Abdomen and Pelvis was performed without IV contrast. The patient did not receive oral contrast. A dose lowering technique was utilized adhering to the principles of DELGADO Vargas. FINDINGS: Lung base: There is minimal dependent atelectasis at the lung bases posteriorly. Abdominal cavity: There is no evidence for abdominal mass, adenopathy or ascites. Liver: The liver is homogeneous in attenuation on these limited noncontrast images.. Spleen: The spleen is homogeneous in attenuation on these limited noncontrast images. Pancreas: The pancreas is homogeneous in attenuation on these limited noncontrast images. Gall Bladder: The gallbladder is well distended with no evidence for cholelithiasis, wall thickening or pericholecystic edema.. Adrenal glands: The adrenal glands are normal in size and attenuation on these limited noncontrast im ages. Kidneys and bladder: The kidneys are homogeneous in attenuation on these limited noncontrast images. There is mild hydronephrosis and hydroureter present on the left to the level of the bladder. There i s no evidence for renal or ureteral calculus. There is evidence for asymmetric mucosal thickening inv olving the floor the bladder which appears to be etiology of the obstruction. Diffuse bladder wall th ickening is also present with no evidence for bladder calculus. This is most characteristic of chroni c bladder outlet obstruction. No contrast was provided and evaluation of the bladder is limited. Ther e is no right-sided hydronephrosis or hydroureter. There are no renal calculi or renal masses. Bowel: There is small hiatal hernia. The bowel loops are normally placed within the abdomen and pelvi s without evidence for dilatation or obstruction. There is no evidence for mass lesion. There is mild sigmoid diverticulosis without evidence for diverticulitis. There are no inflammatory changes presen t. There is no evidence for free air. There is a normal appendix in the right lower quadrant. : There is no evidence for pelvic mass or adenopathy. The prostate is mildly enlarged. Vasculature: There is no evidence for focal aneurysmal dilatation of the abdominal aorta. Osseous structures: There is no acute osseous pathology. Mild degenerative changes are seen involving the lower lumbar spine. IMPRESSION: 1. Mild left-sided hydronephrosis and hydroureter with no evidence for renal or ureteral calculus. 2. However, there is suspicion of abnormal bladder wall thickening of the floor of the bladder along with diffuse mucosal thickening of the bladder wall characteristic of chronic bladder outlet obstruct ion. No IV contrast was provided and the bladder wall cannot be fully evaluated by this study. 3. No other evidence for acute intra-abdominal or pelvic abnormality on these limited noncontrast katja ges. 4. Additional nonacute findings are delineated above. ACT 112: Negative or not required by law. Electronically signed by: Slade Escudero M.D. 01/27/2022 10:41 AM
--- NOTE | 2022-01-27 11:04 | Critical Care Consultation ---
Date of Consultation January 27, 2022 Assessment & Plan (1) Septic shock: Impression: This is a 51-year-old male presents to the emergency room for concern of general unwellness. He was evaluated in the ED and found to have septic shock likely secondary to a urinary source given his recent history of TURP and use of Albrecht catheter. He received 4 L of NSS as well as a 6-minute course of Levophed improving his MAP greater than 65. Patient is clinically stable at this time. Plan: Neuro: No neurological problems at this time Respiratory: Patient has acute hypoxia in the setting of systemic infection. Currently on 2 L nasal cannula and saturating well. Will de-escalate as tolerated. CV: Hypotension secondary to systemic infection from urinary source. Continue maintenance lactated Ringer's at 125 cc/h. Levophed as needed per ICU protocol. High-sensitivity troponins elevated at 77.3 likely secondary to poor perfusion. This should likely improve as fluid status is improved and septic picture improves with antibiotic therapy. GI: Patient presents with elevated transaminases suggestive of liver injury likely secondary to hypoperfusion. Should improve with increased fluid status and maintenance IV fluid, daily CMP. Renal: Patient presents with an ERUM secondary to hypoperfusion. Should improve with increased fluid status and maintenance IV fluid. Will order BMP later this afternoon and continue to monitor. Electrolyte replacement per ICU protocol. CT scan of abdomen did show some concern of mild hydronephrosis with hydroureter on the left which may be concerning for pyelonephritis. : Currently voiding without difficulty. Keep a close eye on I's and O's and if patient has poor output consider reinsertion of Albrecht catheter due to concern for possible outlet obstruction. Endo: Hold Ozempic while in hospital, hyperglycemia protocol. Patient reports that last A1c was around 5.6 with the use of his ozempic. Additionally patient has hypomagnesemia with a magnesium level of 1.3. We will replete with 2 g of magnesium and recheck tomorrow. ID: Septic shock secondary to urinary source with recent history of Albrecht catheter use. Given that the patient has a clear source and being an otherwise healthy 51-year-old male, de-escalate antibiotics at this time to Rocephin 2 g daily for likely urinary source. Blood cultures taken prior to broad-spectrum antibiotics in the ED, will follow. Recheck procalcitonin tomorrow. (2) UTI (urinary tract infection): (3) Elevated LFTs: (4) ERUM (acute kidney injury): (5) Hypomagnesemia: (6) Elevated troponin: (7) Diabetes: (8) CHELY on CPAP: Supervising Physician Co-Signing Physician Notes Patient seen and examined. EMR reviewed. Discussed with patient and at bedside as well as with family practice resident and critical care nurse. Agree with assessment and plan as noted. 51-year-old male with diabetes and urosepsis secondary to instrumentation with recent TURP. He is responded appropriately to IV fluids and is now off vasopressors. His random cortisol was normal. Antibiotics been appropriately administered. Await culture data. We will follow the patient's acute kidney i njury. Glycemic control per ICU protocol. Lactate is clearing. Patient had a CT of the abdomen performed demonstrating mild hydronephrosis and hydroureter on the left. We will consult urology. If the patient's hemodynamics remained stable, he can likely transfer out of the intensive care unit. Recommendations and plan were discussed with the patient and patient's at bedside. Questions were answered to the best my ability. They expressed understanding and are in agreement with the plan as outlined History of Present Illness Reason for Consultation: Septic shock History of Present Illness Patient is a 51-year-old male with a past medical history of hyperlipidemia, diabetes, sleep apnea, and BPH who presented to the emergency room for the chief complaint of shakiness and general unwellness. Patient reports that he had a TURP performed 2 weeks ago for his BPH and was sent home with a Albrecht catheter for which she had up until yesterday. Yesterday it was removed and he went home and was able to void without difficulty. He woke up this morning stating that he was shivering, sweating, and feeling nauseated. Because of this, patient decided to go to the emergency room to have an evaluation. Of note patient reports that on January 25, 2022 he came to the emergency room for abdominal pain, nausea, and vomiting. Additionally he was reporting urinary frequency while he had the Albrecht catheter in at that time. Denies pain anywhere currently. Patient has no other complaints at this time. ED course: Patient arrived in the emergency department and had an evaluation. Patient's vitals were significant for hypotension, hypoxia, and tachycardia. Pt hadl lab work as follows: WBC: 2.82, creatine: 2.16, lactate 4.6->2.9, mag=1.3, Total bili=2.8, elevated transaminases, elevated trops, elevated CRP, Procal=26.8, UA grossly suggetive of UTI. Pt was given 4L of NSS per protocol followed by a 6 minute course of levophed which corrected his BP to a MAP of > 65. Imaging included a chest XRAY that was negative and abdominal CT positive for mild left sided hydronephrosis and hydroureter and abnormal bladder wall thickening. Allergies Allergy/AdvReac Type Severity Reaction Status Date / Time No Known Allergies Allergy Verified 01/26/22 12:55 Home Medications Medication Instructions Recorded Confirmed Type alprazolam 0.5 mg tablet 0.5 mg PO DAILY PRN tab 04/20/19 01/26/22 History atorvastatin 20 mg tablet 20 mg PO QAM #90 tab 04/20/19 01/26/22 History eszopiclone 1 mg tablet 1 mg PO QPM PRN tab 04/20/19 01/26/22 History epinephrine 0.3 mg/0.3 mL 0.3 mg IM Q10M PRN #2 ea 05/08/21 01/26/22 Rx injection, auto-injector (EpiPen) multivitamin 1 tab PO QAM 01/07/22 01/26/22 History docusate sodium 100 mg capsule 100 mg PO BID #30 cap 01/12/22 01/26/22 Rx (Colace) oxycodone 5 mg tablet 5 mg PO Q8H PRN #5 tab 01/12/22 01/26/22 Rx phenazopyridine 100 mg tablet 100 mg PO BID PRN #7 tab 01/12/22 01/26/22 Rx (Pyridium) alfuzosin 10 mg tablet,extended 10 mg PO QPM 01/25/22 01/26/22 History release 24 hr semaglutide 1 mg/dose (4 mg/3 mL) 1 mg SUBCUT WK 01/25/22 01/26/22 History subcutaneous pen injector (Ozempic) sildenafil (pulm.hypertension) 20 100 mg PO DIRECTED PRN 01/25/22 01/26/22 History mg tablet Patient History Medical History Benign prostatic hyperplasia with urinary obstruction Chronic kidney disease, stage I Diabetes History of COVID-19 07/2021 Flu-like symptoms, fever > resolved Hyperlipidemia 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 Severe obstructive sleep apnea Per records Surgical History H/O elbow surgery LEFT S/P ACL reconstruction LEFT S/P bladder repair S/P colonoscopy 2020 Status post finger joint fusion RIGHT RING FINGER Status post hip surgery LEFT Family History Father Hypertension Diabetes Family/Other Bladder cancer Social History Smoking Status: Never smoker Second Hand Exposure: No; Hx Alcohol Use: Yes Alcohol type: beer and wine Hx Substance Use: No Preferred Language: [place] Communication Ability: Effective Irs Agent Required: No Beliefs That Will Affect Care: None marital status: Current Living Situation: Spouse and Family current occupational status: employed Feels Safe at Home: Yes Assistive Devices: None Review of Systems Review of Systems: All systems reviewed & are unremarkable except as noted in HPI & below Physical Exam Constitutional: well developed, well nourished and + ill appearing Eyes: + anicteric sclerae Neck: normal visual inspection Respiratory: normal respiratory effort, lungs clear to auscultation Cardiovascular: RRR, no murmur, no edema Gastrointestinal (Abdomen): Inspection/Auscultation: abdomen normal to inspection and normal bowel sounds Percussion/Palpation: + abdomen tender (suprapubic) Musculoskeletal: Head/Neck/Chest: normocephalic and head atraumatic Skin: no rashes, warm and dry Neurologic: CN's II-XI intact bilaterally and moves all extremities Psychiatric: A+Ox3, euthymic affect Genitourinary: no CVA tenderness Lymphatic: no cervical lymphadenopathy Results & Data Results & Data ([facility]) Vital Signs (Past 12 Hours) Vital Signs Temp Pulse Resp BP Pulse Ox 01/27/22 10:40 105 H 27 H 103/64 94 01/27/22 10:35 111 H 26 H 98/64 L 94 01/27/22 10:25 117 H 25 H 101/71 93 01/27/22 10:14 111 H 26 H 102/64 93 01/27/22 10:11 93 01/27/22 10:10 109 H 26 H 101/60 93 01/27/22 10:05 108 H 24 90/47 L 91 01/27/22 10:03 39.1 C H 01/27/22 10:02 108 H 22 83/52 L 93 01/27/22 10:00 108 H 25 H 84/51 L 93 01/27/22 09:55 108 H 22 86/47 L 93 01/27/22 09:50 109 H 24 77/45 L 93 01/27/22 09:45 22 93 01/27/22 09:42 113 H 25 H 80/52 L 91 01/27/22 09:35 117 H 18 87/51 L 95 01/27/22 09:25 115 H 26 H 82/50 L 92 01/27/22 09:24 112 H 24 83/50 L 92 01/27/22 09:17 118 H 21 80/54 L 93 01/27/22 09:15 24 93 01/27/22 09:10 121 H 17 88/56 L 93 01/27/22 09:05 120 H 29 H 80/59 L 93 01/27/22 09:01 123 H 16 94/52 L 92 01/27/22 09:00 122 H 21 92 01/27/22 08:55 119 H 31 H 85/57 L 93 01/27/22 08:50 120 H 27 H 83/58 L 93 01/27/22 08:45 120 H 15 85/49 L 94 01/27/22 08:40 122 H 21 87/51 L 96 01/27/22 08:35 123 H 20 86/52 L 96 01/27/22 08:30 127 H 21 86/49 L 96 01/27/22 08:29 124 H 22 79/57 L 96 01/27/22 08:26 122 H 16 77/58 L 95 01/27/22 08:20 122 H 20 76/56 L 98 01/27/22 08:17 120 H 21 77/50 L 98 01/27/22 08:13 123 H 24 70/50 L 96 01/27/22 08:12 123 H 23 96 01/27/22 07:56 39.4 C H 01/27/22 07:54 128 H 28 H 95 01/27/22 07:44 37.9 C H 133 H 22 75/39 L 95 Critical Care Results & Data Vital Signs (Past 12 Hours) Vital Signs Temp Pulse Resp BP Pulse Ox 01/27/22 12:30 95 H 19 93 01/27/22 12:27 96 H 18 87/55 L 94 01/27/22 12:25 93 H 23 82/47 L 01/27/22 12:21 95 H 21 82/50 L 01/27/22 12:20 96 H 27 H 75/50 L 01/27/22 12:15 98 H 22 86/49 L 01/27/22 12:10 96 H 26 H 87/55 L 01/27/22 12:05 95 H 21 87/51 L 96 01/27/22 11:56 91/54 L 01/27/22 11:55 96 H 13 98 01/27/22 11:50 93 H 24 95/50 L 94 01/27/22 11:46 95 H 14 88/47 L 95 01/27/22 11:45 96 H 23 80/50 L 95 01/27/22 11:40 96 H 16 83/58 L 94 01/27/22 11:36 99 H 26 H 85/51 L 95 01/27/22 11:35 96 H 11 L 75/51 L 98 01/27/22 11:30 96 H 18 90/54 L 96 01/27/22 11:25 98 H 18 88/49 L 94 01/27/22 11:20 97 H 12 89/55 L 95 01/27/22 11:15 101 H 16 89/51 L 93 01/27/22 11:10 84/51 L 01/27/22 11:05 92/50 L 01/27/22 11:01 37.4 C 19 94 01/27/22 11:00 104 H 23 88/55 L 93 01/27/22 10:55 102 H 19 96/55 L 94 01/27/22 10:50 104 H 18 84/63 L 94 01/27/22 10:45 104 H 23 93/64 L 94 01/27/22 10:40 105 H 27 H 103/64 94 01/27/22 10:35 111 H 26 H 98/64 L 94 01/27/22 10:25 117 H 25 H 101/71 93 01/27/22 10:14 111 H 26 H 102/64 93 01/27/22 10:11 93 01/27/22 10:10 109 H 26 H 101/60 93 01/27/22 10:05 108 H 24 90/47 L 91 01/27/22 10:03 39.1 C H 01/27/22 10:02 108 H 22 83/52 L 93 01/27/22 10:00 108 H 25 H 84/51 L 93 01/27/22 09:55 108 H 22 86/47 L 93 01/27/22 09:50 109 H 24 77/45 L 93 01/27/22 09:45 22 93 01/27/22 09:42 113 H 25 H 80/52 L 91 01/27/22 09:35 117 H 18 87/51 L 95 01/27/22 09:25 115 H 26 H 82/50 L 92 01/27/22 09:24 112 H 24 83/50 L 92 01/27/22 09:17 118 H 21 80/54 L 93 01/27/22 09:15 24 93 01/27/22 09:10 121 H 17 88/56 L 93 01/27/22 09:05 120 H 29 H 80/59 L 93 01/27/22 09:01 123 H 16 94/52 L 92 01/27/22 09:00 122 H 21 92 01/27/22 08:55 119 H 31 H 85/57 L 93 01/27/22 08:50 120 H 27 H 83/58 L 93 01/27/22 08:45 120 H 15 85/49 L 94 01/27/22 08:40 122 H 21 87/51 L 96 01/27/22 08:35 123 H 20 86/52 L 96 01/27/22 08:30 127 H 21 86/49 L 96 01/27/22 08:29 124 H 22 79/57 L 96 01/27/22 08:26 122 H 16 77/58 L 95 01/27/22 08:20 122 H 20 76/56 L 98 01/27/22 08:17 120 H 21 77/50 L 98 01/27/22 08:13 123 H 24 70/50 L 96 01/27/22 08:12 123 H 23 96 01/27/22 07:56 39.4 C H 01/27/22 07:54 128 H 28 H 95 01/27/22 07:44 37.9 C H 133 H 22 75/39 L 95 Lab & Micro Results (Past 24 Hours) RBC 4.96 M/uL (4.7-6.1) 01/27/22 WBC 2.82 K/uL (4.8-10.8) L 01/27/22 Hgb 14.8 g/dL (14.0-18.0) 01/27/22 Hct 42.3 % (42-52) 01/27/22 MCV 85.3 fL (80-100) 01/27/22 MCH 29.8 pg (25-34) 01/27/22 MCHC 35.0 g/dL (32-36) 01/27/22 RDW Standard Deviation 40.4 fL (36.4-46.3) 01/27/22 RDW Coefficient of Variation 13.0 % (11.5-14.5) 01/27/22 Plt Count 178 K/uL (130-400) 01/27/22 MPV 10.4 fL (7.4-10.4) 01/27/22 Neutrophils (%) (Auto) 80.4 % 01/27/22 Lymphocytes (%) (Auto) 16.7 % 01/27/22 Monocytes # (Auto) 0.03 K/uL (0.11-0.59) L 01/27/22 Eosinophils # (Auto) 0.02 K/uL (0-0.5) 01/27/22 Immature Granulocyte % (Auto) 1.1 % 01/27/22 Neutrophils # (Auto) 2.27 K/uL (1.4-6.5) 01/27/22 Lymphocytes # (Auto) 0.47 K/uL (1.2-3.4) L 01/27/22 Monocytes # (Auto) 0.03 K/uL (0.11-0.59) L 01/27/22 Eosinophils # (Auto) 0.02 K/uL (0-0.5) 01/27/22 Basophils # (Auto) 0.00 K/uL (0-0.2) 01/27/22 Immature Granulocyte # (Auto) 0.03 K/uL (0.00-0.02) H 01/27/22 Na 139 mmol/L (136-145) 01/27/22 K 3.5 mmol/L (3.5-5.1) 01/27/22 Cl 103 mmol/L (98-107) 01/27/22 CO2 22 mmol/L (21-32) 01/27/22 Anion Gap 14 (3-11) H 01/27/22 BUN 20 mg/dl (6-23) 01/27/22 Creatinine 2.16 mg/dl (0.6-1.4) H 01/27/22 Estimated GFR ( Amer) 39.6 ml/min 01/27/22 Estimated GFR (Non-Af Amer) 34.2 ml/min 01/27/22 BUN/Creatinine Ratio 9.3 (10-20) L 01/27/22 Glu 133 mg/dl (70-99(Fasting)) H 01/27/22 Ca 9.2 mg/dl (8.5-10.1) 01/27/22 Total Bilirubin 2.8 mg/dl (0.2-1.0) H 01/27/22 AST 268 U/L (13-39) H 01/27/22 ALT 131 U/L (7-52) H 01/27/22 Alkaline Phosphatase 130 U/L (34-104) H 01/27/22 TP 7.0 gm/dl (6.0-8.3) 01/27/22 Albumin 4.2 gm/dl (3.4-5.0) 01/27/22 Globulin 2.8 gm/dl (2.5-4.0) 01/27/22 Albumin/Globulin Ratio 1.5 (0.9-2) 01/27/22 Mg 1.3 mg/dl (1.7-2.4) L 01/27/22 08:02 01/27/22 Calcium Level 9.2 mg/dl (8.5-10.1) 01/27/22 08:02 01/27/22 Prothromb Time International Ratio 1.2 (0.9-1.1) H 01/27/22 08:02 01/27/22 Diagnostic Findings (Past 24 Hours) Chest X-Ray 01/27/22 08:15 XR chest 1V portable HISTORY: 51 years-old Male SEPSIS acute sepsis COMPARISON: Chest radiograph 12/31/2021 TECHNIQUE: Portable AP view of the chest FINDINGS: The cardiomediastinal and hilar silhouettes are within normal limits. There is no pneumothorax, pleural effusion, airspace consolidation or overt pulmonary edema. Minimal left lung base densities are likely secondary to summation density. The bones appear grossly intact. IMPRESSION: No acute process. ACT 112: Negative or not required by law. The above report was generated using voice recognition software. It may contain grammatical, syntax or spelling errors. Electronically signed by: Fer Lucero M.D. 01/27/2022 8:46 AM Abdomen/Pelvis CT 01/27/22 09:09 CT abd pelvis wo con CLINICAL HISTORY: hematuria, recent turp, pres c/f urosepsis COMPARISON STUDY: 04/13/2015 CT DOSE: 826.79 mGy.cm TECHNIQUE: Standard CT of the Abdomen and Pelvis was performed without IV contrast. The patient did not receive oral contrast. A dose lowering technique was utilized adhering to the principles of ALARA. FINDINGS: Lung base: There is minimal dependent atelectasis at the lung bases posteriorly. Abdominal cavity: There is no evidence for abdominal mass, adenopathy or ascites. Liver: The liver is homogeneous in attenuation on these limited noncontrast images.. Spleen: The spleen is homogeneous in attenuation on these limited noncontrast images. Pancreas: The pancreas is homogeneous in attenuation on these limited noncontrast images. Gall Bladder: The gallbladder is well distended with no evidence for cholelithiasis, wall thickening or pericholecystic edema.. Adrenal glands: The adrenal glands are normal in size and attenuation on these limited noncontrast images. Kidneys and bladder: The kidneys are homogeneous in attenuation on these limited noncontrast images. There is mild hydronephrosis and hydroureter present on the left to the level of the bladder. There is no evidence for renal or ureteral calculus. There is evidence for asymmetric mucosal thickening involving the floor the bladder which appears to be etiology of the obstruction. Diffuse bladder wall thickening is also present with no evidence for bladder calculus. This is most characteristic of chronic bladder outlet obstruction. No contrast was provided and evaluation of the bladder is limited. There is no right-sided hydronephrosis or hydroureter. There are no renal calculi or renal masses. Bowel: There is small hiatal hernia. The bowel loops are normally placed within the abdomen and pelvis without evidence for dilatation or obstruction. There is no evidence for mass lesion. There is mild sigmoid diverticulosis without evidence for diverticulitis. There are no inflammatory changes present. There is no evidence for free air. There is a normal appendix in the right lower quadrant. : There is no evidence for pelvic mass or adenopathy. The prostate is mildly enlarged. Vasculature: There is no evidence for focal aneurysmal dilatation of the abdominal aorta. Osseous structures: There is no acute osseous pathology. Mild degenerative marsh ges are seen involving the lower lumbar spine. IMPRESSION: 1. Mild left-sided hydronephrosis and hydroureter with no evidence for renal or ureteral calculus. 2. However, there is suspicion of abnormal bladder wall thickening of the floor of the bladder along with diffuse mucosal thickening of the bladder wall characteristic of chronic bladder outlet obstruction. No IV contrast was provided and the bladder wall cannot be fully evaluated by this study. 3. No other evidence for acute intra-abdominal or pelvic abnormality on these limited noncontrast images. 4. Additional nonacute findings are delineated above. ACT 112: Negative or not required by law. Electronically signed by: Slade Escudero M.D. 01/27/2022 10:41 AM I & O Totals 24 Hours 01/26/22 01/27/22 01/28/22 06:59 06:59 06:59 Intake Total 3621.91 / 3621.91 Balance 3621.91 / 3621.91 Cumulative 01/27/22 07:40 thru 01/27/22 12:28 Intake Total 3621.91 Balance 3621.91 RT Ventilator Mngmt (Last Documented) Ventilator Ordered Settings Respiratory Rate 19 01/27/22 12:30 Ventilator - PT Measurements Respiratory Rate 19
--- NOTE | 2022-01-27 12:39 | Urology Consultation ---
Date of Consultation January 27, 2022 Assessment & Plan (1) Septic shock: (2) UTI (urinary tract infection): (3) ERUM (acute kidney injury): 51yo M admitted with septic shock likely secondary to a urinary source given his recent history of TURP (01/11) and use of Rosales catheter which was removed yesterday. - Plan of care and imaging reviewed with Dr. Perez. - CTAP reviewed - Mild left-sided hydronephrosis and hydroureter with no evidence for renal or ureteral calculus; Bladder wall thickening also noted. - Patient in ICU, on vasopressors. Tachycardic. Febrile this morning at 39.4C. - Labs reviewed -White count 2.82, Creatinine 2.16 - Continue to trend - Urine and blood cultures pending. - On IV Ceftriaxone, follow cultures. - Voiding spontaneously, continue to monitor closely. Bladder scan prn. May need to consider reinsertion of Rosales catheter if he is not emptying well. - No acute intervention warranted at this time. - Continue supportive care, antibiotic therapy, and close monitoring. - Will plan to make NPO at midnight to reassess in AM. - If he fails to clinically progress despite antibiotics and supportive care, patient may require intervention in the form of ureteral stent placement. - Urology will continue to follow closely. History of Present Illness Reason for Consultation: sepsis s/p TURP and rosales removal yesterday History of Present Illness 51-year-old male with past medical history significant for BPH and newly diagnosed prostate cancer, diabetes, hyperlipidemia, insomnia, and sleep apnea who presented to the ED today from home with fever, chills, and ill-feelings. Patient is status post TURP procedure on 01/[address] Perez and incidentally found to have prostate cancer in 1 slide of the specimen. He was seen in the office yesterday for Rosales catheter removal which he tolerated well. He reports he had been doing well until earlier this morning when he woke up feeling poorly. On presentation to the ED, he was febrile, hypotensive and tachycardic. Labs revealed a white count of 2.82, creatinine 2.16, lactate 4.6, and elevated troponin. Urinalysis notable for 3+ blood, positive nitrites, 1+LE, greater than 30 RBC, greater than 30 WBC, negative bacteria. COVID test negative. A CT A/P with mild left-sided hydronephrosis and hydroureter with no evidence for renal or ureteral calculus. Suspicion of abnormal bladder wall thickening of floor bladder along with diffuse mucosal thickening of bladder wall characteristic of chronic bladder outlet obstruction. Patient was given IVF, IV antibiotics, and started on vasopressors for BP support and admitted to the ICU for further management. Patient examined at bedside in the ICU. Awake, resting in bed on arrival. No acute distress. Reports he is feeling much better. Afebrile at present. On vasopressors and O2 via nasal cannula. States he is urinating without difficulty and feels he is emptying his bladder well. Notes some mild hematuria. Prefers to avoid catheter reinsertion if possible. Denies abdominal, flank, and back pain. No nausea or vomiting. No additional complaints at time of exam. Family history noncontributory. Allergies Allergy/AdvReac Type Severity Reaction Status Date / Time No Known Allergies Allergy Verified 01/26/22 12:55 Home Medications Medication Instructions Recorded Confirmed Type alprazolam 0.5 mg tablet 0.5 mg PO DAILY PRN tab 04/20/19 01/26/22 History atorvastatin 20 mg tablet 20 mg PO QAM #90 tab 04/20/19 01/26/22 History eszopiclone 1 mg tablet 1 mg PO QPM PRN tab 04/20/19 01/26/22 History epinephrine 0.3 mg/0.3 mL 0.3 mg IM Q10M PRN #2 ea 05/08/21 01/26/22 Rx injection, auto-injector (EpiPen) multivitamin 1 tab PO QAM 01/07/22 01/26/22 History docusate sodium 100 mg capsule 100 mg PO BID #30 cap 01/12/22 01/26/22 Rx (Colace) oxycodone 5 mg tablet 5 mg PO Q8H PRN #5 tab 01/12/22 01/26/22 Rx phenazopyridine 100 mg tablet 100 mg PO BID PRN #7 tab 01/12/22 01/26/22 Rx (Pyridium) alfuzosin 10 mg tablet,extended 10 mg PO QPM 01/25/22 01/26/22 History release 24 hr semaglutide 1 mg/dose (4 mg/3 mL) 1 mg SUBCUT WK 01/25/22 01/26/22 History subcutaneous pen injector (Ozempic) sildenafil (pulm.hypertension) 20 100 mg PO DIRECTED PRN 01/25/22 01/26/22 History mg tablet Patient History Medical History Benign prostatic hyperplasia with urinary obstruction Chronic kidney disease, stage I Diabetes History of COVID-19 07/2021 Flu-like symptoms, fever > resolved Hyperlipidemia 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 Severe obstructive sleep apnea Per records Surgical History H/O elbow surgery LEFT S/P ACL reconstruction LEFT S/P bladder repair S/P colonoscopy 2020 Status post finger joint fusion RIGHT RING FINGER Status post hip surgery LEFT Family History Father Hypertension Diabetes Family/Other Bladder cancer Social History Smoking Status: Never smoker Second Hand Exposure: No; Hx Alcohol Use: Yes Alcohol type: beer and wine Hx Substance Use: No Preferred Language: Liberian Communication Ability: Effective Internal Control Consultant Required: No Beliefs That Will Affect Care: None marital status: Current Living Situation: Family Current Living Situation Comment: lives with and children current occupational status: employed Feels Safe at Home: Yes Safety Concerns: Feels Safe At This Time Assistive Devices: None Review of Systems Review of Systems: All systems reviewed & are unremarkable except as noted in HPI & below Physical Exam Constitutional: + ill appearing and cooperative; no acute distress Neck: normal visual inspection Respiratory: no respiratory distress and no labored breathing On O2 via NC Cardiovascular: Extremities: no calf tenderness Gastrointestinal (Abdomen): Inspection/Auscultation: abdomen normal to inspection Musculoskeletal: Head/Neck/Chest: normocephalic Skin: No visible rashes or lesions to exposed skin areas Neurologic: moves all extremities and awake Psychiatric: Orientation: alert and oriented x 3 Results & Data ([facility]) Vital Signs (Past 12 Hours) Vital Signs Temp Pulse Resp BP Pulse Ox 01/27/22 12:15 98 H 22 86/49 L 01/27/22 12:10 96 H 26 H 87/55 L 01/27/22 12:05 95 H 21 87/51 L 96 01/27/22 11:56 91/54 L 01/27/22 11:55 96 H 13 98 01/27/22 11:50 93 H 24 95/50 L 94 01/27/22 11:46 95 H 14 88/47 L 95 01/27/22 11:45 96 H 23 80/50 L 95 01/27/22 11:40 96 H 16 83/58 L 94 01/27/22 11:36 99 H 26 H 85/51 L 95 01/27/22 11:35 96 H 11 L 75/51 L 98 01/27/22 11:30 96 H 18 90/54 L 96 01/27/22 11:25 98 H 18 88/49 L 94 01/27/22 11:20 97 H 12 89/55 L 95 01/27/22 11:15 101 H 16 89/51 L 93 01/27/22 11:10 84/51 L 01/27/22 11:05 92/50 L 01/27/22 11:01 37.4 C 19 94 01/27/22 11:00 104 H 23 88/55 L 93 01/27/22 10:55 102 H 19 96/55 L 94 01/27/22 10:50 104 H 18 84/63 L 94 01/27/22 10:45 104 H 23 93/64 L 94 01/27/22 10:40 105 H 27 H 103/64 94 01/27/22 10:35 111 H 26 H 98/64 L 94 01/27/22 10:25 117 H 25 H 101/71 93 01/27/22 10:14 111 H 26 H 102/64 93 01/27/22 10:11 93 01/27/22 10:10 109 H 26 H 101/60 93 01/27/22 10:05 108 H 24 90/47 L 91 01/27/22 10:03 39.1 C H 01/27/22 10:02 108 H 22 83/52 L 93 01/27/22 10:00 108 H 25 H 84/51 L 93 01/27/22 09:55 108 H 22 86/47 L 93 01/27/22 09:50 109 H 24 77/45 L 93 01/27/22 09:45 22 93 01/27/22 09:42 113 H 25 H 80/52 L 91 01/27/22 09:35 117 H 18 87/51 L 95 01/27/22 09:25 115 H 26 H 82/50 L 92 01/27/22 09:24 112 H 24 83/50 L 92 01/27/22 09:17 118 H 21 80/54 L 93 01/27/22 09:15 24 93 01/27/22 09:10 121 H 17 88/56 L 93 01/27/22 09:05 120 H 29 H 80/59 L 93 01/27/22 09:01 123 H 16 94/52 L 92 01/27/22 09:00 122 H 21 92 01/27/22 08:55 119 H 31 H 85/57 L 93 01/27/22 08:50 120 H 27 H 83/58 L 93 01/27/22 08:45 120 H 15 85/49 L 94 01/27/22 08:40 122 H 21 87/51 L 96 01/27/22 08:35 123 H 20 86/52 L 96 01/27/22 08:30 127 H 21 86/49 L 96 01/27/22 08:29 124 H 22 79/57 L 96 01/27/22 08:26 122 H 16 77/58 L 95 01/27/22 08:20 122 H 20 76/56 L 98 01/27/22 08:17 120 H 21 77/50 L 98 01/27/22 08:13 123 H 24 70/50 L 96 01/27/22 08:12 123 H 23 96 01/27/22 07:56 39.4 C H 01/27/22 07:54 128 H 28 H 95 01/27/22 07:44 37.9 C H 133 H 22 75/39 L [address] abdomen pelvis IMPRESSION: 1. Mild left-sided hydronephrosis and hydroureter with no evidence for renal or ureteral calculus. 2. However, there is suspicion of abnormal bladder wall thickening of the floor of the bladder along with diffuse mucosal thickening of the bladder wall characteristic of chronic bladder outlet obstruction. No IV contrast was provided and the bladder wall cannot be fully evaluated by this study. 3. No other evidence for acute intra-abdominal or pelvic abnormality on these limited noncontrast images. 4. Additional nonacute findings are delineated above. PG Care Time/CCT Total # of Minutes Spent Total Time Spent with Patient: Total time spent is greater than 50% in coordination of care (as documented) at patient's floor/unit and/or counseling patient: Coding Level of Care Code 83958 Inpt Consult Level 3 Diagnoses Septic shock A41.9; R65.21 UTI (urinary tract infection) N39.0 ERUM (acute kidney injury) N17.9
[2022-01-27] MEDS ORDERED: MAGNESIUM SULFATE / D5W 1 GM/100 ML BAG IV ONE (12:44)
[2022-01-27] MEDS ORDERED: ICU PROTOCOL FOR HYPERGLYCEMIA PRN (12:44)
[2022-01-27] MEDS ORDERED: ONDANSETRON INJ 2 MG/ML 2 ML VIAL IV PRN (12:44)
[2022-01-27] MEDS ORDERED: PHENAZOPYRIDINE HCL 100 MG TAB PO PRN (12:44)
--- NOTE | 2022-01-27 13:26 | Billing Data ---
Date of Service January 27, 2022 Coding Level of Care Code 05223 Inpt Consult Level 4
[2022-01-27] MEDS: LACTATED RINGER'S 1,000 ML IV SCH ×2 (13:34→21:55)
[2022-01-27] MEDS: cefTRIAXone SODIUM 2,000 MG in DEXTROSE 5% 50 ML IV SCH (16:20)
[2022-01-27 16:55] LABS: BUN Creatinine Ratio 9.2 (10-20); Creatinine Clr Calc Pharmacy 47.2 ml/min; Est GFR (African American) 35.2 ml/min; Est GFR (Non-African American) 30.4 ml/min; Potassium 4.2 mmol/L (3.5-5.1)
[2022-01-27] MEDS: ACETAMINOPHEN 500 MG TAB PO PRN (19:36)
[2022-01-27] MEDS: POTASSIUM CHLORIDE 20 MEQ/15 ML UDC PO SCH (20:32)
[2022-01-27 22:01] LABS: A calco-baum cmplx NotReported Not Detected (NotDetected); Bact fragilis Not Reported Not Detected (NotDetected); C auris Not Reported Not Detected (NotDetected); CTX-M Resistant Gene Not Detected (NotDetected); Calbicans Not Reported Not Detected (NotDetected); Candida glabrata Not Reported Not Detected (NotDetected); Candida krusei Not Reported Not Detected (NotDetected); Cneoformans/gatti Not Reported Not Detected (NotDetected); Cparapsilosis Not Reported Not Detected (NotDetected); Ctropicalis Not Reported Not Detected (NotDetected); E cloacae compx Not Reported Not Detected (NotDetected); Efaecalis Not Reported Not Detected (NotDetected); Efaecium Not Reported Not Detected (NotDetected); Enterobacterales DETECTED (NotDetected); Enterobacterales Not Reported DETECTED (NotDetected); Escherichia coli Not Reported Not Detected (NotDetected); H influenzae Not Reported Not Detected (NotDetected); IMP Resistant Gene Not Detected (NotDetected); K aerogenes Not Reported Not Detected (NotDetected); KPC Resistant Gene Not Detected (NotDetected); Koxytoca Not Reported DETECTED (NotDetected); Kpneumoniae grp Not Reported Not Detected (NotDetected); Lmonocyt Not Reported Not Detected (NotDetected); N meningitidis Not Reported Not Detected (NotDetected); NDM Resistant Gene Not Detected (NotDetected); OXA 48 Like Resistant Gene Not Detected (NotDetected); P aeruginosa Not Reported Not Detected (NotDetected); Proteus spp Not Reported Not Detected (NotDetected); Salmonella spp Not Reported Not Detected (NotDetected); Smarcescens Not Reported Not Detected (NotDetected); Staph lugdunensis Not Reported Not Detected (NotDetected); Staph spp. Not Reported Not Detected (NotDetected); Staphaureus Not Reported Not Detected (NotDetected); Staphepi Not Reported Not Detected (NotDetected); Stenmaltophilia Not Reported Not Detected (NotDetected); Strep agal(GrpB) Not Reported Not Detected (NotDetected); Strep pneum Not Reported Not Detected (NotDetected); Strep pyog (GrpA) Not Reported Not Detected (NotDetected); Strep spp Not Reported Not Detected (NotDetected); VIM Resistant Gene Not Detected (NotDetected); mcr-1 Colistin Resistant Gene Not Detected (NotDetected)
[2022-01-27] MEDS: ESZOPICLONE 1 MG TAB PO PRN (22:26)
--- NOTE | 2022-01-27 22:54 | Electrocardiogram Report ---
Test Reason : Blood Pressure : / mmHG Vent. Rate : 134 BPM Atrial Rate : 134 BPM P-R Int : 130 ms QRS Dur : 084 ms QT Int : 296 ms P-R-T Axes : 031 065 043 degrees QTc Int : 442 ms Sinus tachycardia Otherwise normal ECG When compared with ECG of 31-DEC-2021 09:23, Vent. rate has increased BY 78 BPM Confirmed by Mich Roldan ([id number]) on 01/27/2022 10:53:43 PM Referred By: REFERRED SELF Confirmed By:Mich Roldan
[2022-01-27] MEDS ORDERED: NORMOSOL-R 1,000 ML IV ONE (23:19)
[2022-01-28] MEDS: LACTATED RINGER'S 1,000 ML IV SCH ×2 (05:32→13:17)
[2022-01-28] MEDS: ACETAMINOPHEN 500 MG TAB PO PRN ×2 (05:34→20:38)
[2022-01-28 06:24] LABS: Albumin Globulin Ratio 1.3 (0.9-2); Albumin Level 3.1 gm/dl (3.4-5.0); BUN Creatinine Ratio 14.4 (10-20); Bilirubin,Total 4.1 mg/dl (0.2-1.0); Calcium 7.6 mg/dl (8.5-10.1); Creatinine Clr Calc Pharmacy 67.7 ml/min; Est GFR (African American) 54.1 ml/min; Est GFR (Non-African American) 46.7 ml/min; Globulin 2.3 gm/dl (2.5-4.0); INR 1.6 (0.9-1.1); Magnesium 1.3 mg/dl (1.7-2.4); Potassium 3.8 mmol/L (3.5-5.1); Total Protein 5.4 gm/dl (6.0-8.3)
[2022-01-28 06:50] LABS: Basophils # (auto) 0.05 K/uL (0-0.2); Basophils % (auto) 0.2 %; Dohle Bodies 1+; Echinocytes 1+; Eosinophils # (auto) 0.01 K/uL (0-0.50); Hematocrit (blood only) 36.2 % (40.1-51.0); Hemoglobin 12.3 g/dl (14.0-18.0); Immature Granulocytes # (auto) 0.38 K/uL (0.00-0.02); Immature Granulocytes % (auto) 1.8 %; Lymphocytes # (auto) 0.37 K/uL (1.2-3.4); Lymphocytes % (auto) 1.8 %; Mean Corpuscular Hemoglobin 29.3 pg (25.0-34.0); Mean Corpuscular Volume 86.2 fL (80.0-100.0); Mean Platelet Volume 11.4 fL (9.4-12.4); Monocytes # (auto) 0.71 K/uL (0.24-0.82); Monocytes % (auto) 3.4 %; Neutrophils % (auto) 92.8 %; Platelet Count 115 K/uL (130-400); Platelet Estimate Decreased (Normal); RDW Coefficient of Variation 12.9 % (11.5-14.5); RDW Standard Deviation 40.3 fL (36.4-46.3); White Blood Count 20.92 K/ul (4.8-10.8)
--- NOTE | 2022-01-28 07:31 | Hospitalist Progress Note ---
Date of Service January 28, 2022 Assessment & Plan (1) Septic shock: Plan: Salvador is a 51-year-old male with a history of urinary retention status post TURP [], CHELY, and Peyronie's who presented to the ER with septic shock of suspected urinary origin Sepsis 2/2 complicated UTI History of recent TURP 01/11 and Rosales removal - Febrile overnight to 38.3 WBC 20, NLR >40, transaminitis in the setting of hypotension, PCT 147 from 26 Blood culture rapid PCR positive for Enterobacter and Klebsiella. KPC Resistance gene not detected by PCR - BC 10/26 positive for GNB x2 sp. - Surveillance cultures ordered CT A/P:Mild left-sided hydronephrosis and hydroureter with no evidence for renal or ureteral calculus. Suspicion of abnormal bladder wall thickening of the floor of the bladder along with diffuse mucosal thickening of the bladder wall characteristic of chronic bladder outlet obstruction. - WBC 2.82, initial lactate 4.6, down 2.9 after IVF. CRP 2.90, PCT 26.76. Elevated troponin, LFTS and ERUM. Hypotensive with MAP less than 60 on admission, received 4 L boluses, was placed on LR IV FM and nor epi. MAP maintained greater than 65 - Nor epi weaned to ~2000hrs 01/29 Initial Meraz/Zosyn switched to Dapto/Zosyn and subsequently narrowed to Rocephin Urine cultures - Urology consulted. No plans for surgical intervention at this time. Supportive care, follow I&os, rosales if retaining. ERUM 2/2 sepsis Received fluid resuscitation as noted. DC IVF, diet improved Creatinine peaked at 2.38, downtrending to 1.67. Baseline normal, last approximately 1.2 Creatinine clearance drug dosing >60 Continue sepsis treatment as noted BMP daily Hypomagnesemia Magnesium 1.3, repleted with 1 g, repeat 1.3 Additional repletion x2g, repeat AM Elevated troponin - Suspect demand High-sensitivity troponin 21.3, repeat 77.3 EKG with sinus tachycardia without ST segment/T wave changes Daily EKGs In the setting of demand ischemia and sepsis Clinically without chest pain/signs of ACS Transaminitis AST/ALT/alk phos/T bili elevated on admission AST/ALT downtrending, T bili slightly uptrending CT A/P on admission did not show any acute gallbladder/liver pathology Trend, continue sepsis treatment Prostate cancer History of TURP 01/11, Samia 3+3 Has outpatient follow-up in 2 to 3 months with urology for further management, no acute intervention at this time T2 diabetes mellitus BSG 80-90s, BSG and +SSI if needed Home glycemic held Insomnia Uses Lunesta nightly BASTING MARKER Hyperlipidemia Statin held for transaminitis CHELY Continue CPAP nightly (2) UTI (urinary tract infection): Plan: - Management as above. (3) ERUM (acute kidney injury): (4) Hypomagnesemia: (5) Elevated troponin: (6) Elevated LFTs: (7) Prostate cancer: (8) Diabetes: (9) Insomnia: (10) Hyperlipidemia: (11) CHELY on CPAP: Admission and Anticipated Discharge Date Admission Date: January 27, 2022 Subjective Patient seen at bedside in the morning. No fever/chills this morning. No shortness of breath, difficulty breathing. No abdominal pain, prior discomfort nearly resolved. Patient feels much better than he did the preceding night. Discussed case with ICU provider, patient appropriate for downgrade. Has been off vasopressors since 8 PM last night. Is hungry and would like to eat when possible. Review of Systems Review of Systems: All systems reviewed & are unremarkable except as noted in Subjective Physical Exam Physical Exam: General: A&Ox3. NAD. Cooperative. HEENT: Atraumatic, normocephalic. Pupils equal and reactive to light. Pulm: CTAB A&P. -wheezes, -rales, -rhonchi. Symmetrical chest rise. No increase in work of breathing. No respiratory distress. Cardiac: RRR, -mrg. Radial pulses intact and symmetrical. Abdominal: Trace suprapubic tenderness, without rebound tenderness/rigidity. Soft. Extremities: Without edema, moves all extremities equally Results & Data Results & Data ([facility]) Vital Signs (Past 12 Hours) Vital Signs Temp Pulse Resp BP Pulse Ox 01/28/22 06:00 117/77 01/28/22 05:45 101 H 18 92 01/28/22 05:43 38.3 C H 01/28/22 05:30 97 H 23 96 01/28/22 05:15 92 H 28 H 94 01/28/22 05:00 99 H 19 124/84 94 01/28/22 04:30 94 H 18 96 01/28/22 04:00 86 24 111/71 95 01/28/22 03:30 95 H 24 95 01/28/22 03:04 96 H 24 108/66 93 01/28/22 03:02 97 H 25 H 80/41 L 93 01/28/22 03:00 97 H 17 74/56 L 94 01/28/22 02:33 99 H 12 100/65 96 01/28/22 02:32 99 H 12 72/49 L 93 01/28/22 02:31 99 H 24 70/48 L 93 01/28/22 02:30 98 H 24 92 01/28/22 02:00 106 H 22 135/76 94 01/28/22 01:31 91 H 20 106/47 L 92 01/28/22 01:30 89 17 78/49 L 90 01/28/22 01:15 95 H 38 H 91 01/28/22 01:00 94 H 27 H 91/58 L 89 L 01/28/22 00:46 37.0 C 01/28/22 00:45 96 H 30 H 92 01/28/22 00:30 99 H 20 107/64 93 01/28/22 00:15 102 H 16 128/61 95 01/28/22 00:00 95 H 19 106/53 L 91 01/27/22 23:45 97 H 26 H 81/53 L 91 01/27/22 23:30 97 H 30 H 119/57 L 92 01/27/22 23:15 99 H 26 H 88/47 L 92 01/27/22 23:12 97 H 24 82/53 L 91 01/27/22 23:09 102 H 01/27/22 23:00 105 H 24 85/54 L 94 01/27/22 22:50 103 H 27 H 84/52 L 92 01/27/22 22:45 102 H 32 H 88/42 L 93 01/27/22 22:30 103 H 20 114/71 91 01/27/22 22:16 100 H 30 H 120/67 94 01/27/22 22:15 103 H 26 H 91 01/27/22 22:00 112 H 13 100/48 L 95 01/27/22 21:57 105 H 28 H 103/62 96 01/27/22 21:46 105 H 21 82/55 L 95 01/27/22 21:45 102 H 17 95 01/27/22 21:35 101 H 20 99/51 L 95 01/27/22 21:31 103 H 24 87/53 L 94 01/27/22 21:30 103 H 24 96 01/27/22 21:15 99 H 29 H 123/81 95 01/27/22 21:00 99 H 27 H 127/79 96 01/27/22 20:45 99 H 26 H 123/66 97 01/27/22 20:30 100 H 27 H 117/86 95 01/27/22 20:15 100 H 34 H 127/72 95 01/27/22 20:10 37.6 C H 01/27/22 20:00 100 H 19 126/77 97 01/27/22 19:45 105 H 28 H 122/79 95 01/27/22 19:30 101 H 25 H 107/79 94 PG Care Time/CCT Total # of Minutes Spent Total Time Spent with Patient: Total time spent is greater than 50% in coordination of care (as documented) at patient's floor/unit and/or counseling patient: Coding Level of Care Code 25310 Subseq Hosp Care Lvl 3 Diagnoses Septic shock A41.9; R65.21 UTI (urinary tract infection) N39.0 ERUM (acute kidney injury) N17.9 Hypomagnesemia E83.42 Elevated troponin R77.8 Elevated LFTs R79.89 Prostate cancer C61 Diabetes E11.9 Insomnia G47.00 Hyperlipidemia E78.5 CHELY on CPAP G47.33; Z99.89
[2022-01-28] MEDS: POTASSIUM CHLORIDE 20 MEQ/15 ML UDC PO SCH ×2 (08:06→20:36)
[2022-01-28] MEDS: MAGNESIUM SULFATE / D5W 1 GM/100 ML BAG IV SCH ×2 (08:06→09:47)
--- NOTE | 2022-01-28 08:33 | Urology Progress Note ---
Date of Service January 28, 2022 Assessment & Plan (1) Septic shock: (2) UTI (urinary tract infection): (3) ERUM (acute kidney injury): Plan: 51yo M admitted with septic shock likely secondary to a urinary source given his recent history of TURP (01/11) and Albrecht catheter. - Overall clinically improving. Remains in ICU, but awaiting transfer to the floor. - Afebrile at present -Temp 38.3C earlier this morning. - Labs reviewed - WBC from 2.82- 20.92 today, Creatinine downtrending, 1.67 today - Continue to monitor. - Urine and blood cultures preliminary gram negative bacilli, continues on IV Ceftriaxone - Voiding spontaneously, output appears adequate. Continue to monitor, bladder scan prn. - Plan of care reviewed with Dr. Perez. - No plan for intervention at this time. - Ok to have a diet back from our standpoint. - Continue supportive care, antibiotic therapy, and close monitoring. - Urology will follow. Admission and Anticipated Discharge Date Admission Date: January 27, 2022 Subjective Pt examined at bedside this AM. Awake, sitting in bedside chair on arrival. No acute issues overnight. Subjectively feeling much better. Off pressors. Temp 38.3 earlier this AM. Voiding without issue. Some hematuria, no dysuria. Denies abdominal, flank, and suprapubic pain. Feels he is emptying his bladder well. Tolerating diet. Reports loose stools. Review of Systems Constitutional: as per Subjective / HPI Gastrointestinal: as per Subjective / HPI Genitourinary: + as per Subjective / HPI Physical Exam Constitutional: no acute distress Respiratory: no respiratory distress and no labored breathing Gastrointestinal (Abdomen): Inspection/Auscultation: abdomen normal to inspection Skin: No visible rashes or lesions Neurologic: moves all extremities and awake Psychiatric: Orientation: alert and oriented x 3 Results & Data ([facility]) Vital Signs (Past 12 Hours) Vital Signs Temp Pulse Resp BP Pulse Ox 01/28/22 06:00 117/77 01/28/22 05:45 101 H 18 92 01/28/22 05:43 38.3 C H 01/28/22 05:30 97 H 23 96 01/28/22 05:15 92 H 28 H 94 01/28/22 05:00 99 H 19 124/84 94 07/07/22 04:30 94 H 18 96 01/28/22 04:00 86 24 111/71 95 01/28/22 03:30 95 H 24 95 01/28/22 03:04 96 H 24 108/66 93 01/28/22 03:02 97 H 25 H 80/41 L 93 01/28/22 03:00 97 H 17 74/56 L 94 01/28/22 02:33 99 H 12 100/65 96 01/28/22 02:32 99 H 12 72/49 L 93 01/28/22 02:31 99 H 24 70/48 L 93 01/28/22 02:30 98 H 24 92 01/28/22 02:00 106 H 22 135/76 94 01/28/22 01:31 91 H 20 106/47 L 92 01/28/22 01:30 89 17 78/49 L 90 01/28/22 01:15 95 H 38 H 91 01/28/22 01:00 94 H 27 H 91/58 L 89 L 01/28/22 00:46 37.0 C 01/28/22 00:45 96 H 30 H 92 01/28/22 00:30 99 H 20 107/64 93 01/28/22 00:15 102 H 16 128/61 95 01/28/22 00:00 95 H 19 106/53 L 91 01/27/22 23:45 97 H 26 H 81/53 L 91 01/27/22 23:30 97 H 30 H 119/57 L 92 01/27/22 23:15 99 H 26 H 88/47 L 92 01/27/22 23:12 97 H 24 82/53 L 91 01/27/22 23:09 102 H 01/27/22 23:00 105 H 24 85/54 L 94 01/27/22 22:50 103 H 27 H 84/52 L 92 01/27/22 22:45 102 H 32 H 88/42 L 93 01/27/22 22:30 103 H 20 114/71 91 01/27/22 22:16 100 H 30 H 120/67 94 01/27/22 22:15 103 H 26 H 91 01/27/22 22:00 112 H 13 100/48 L 95 01/27/22 21:57 105 H 28 H 103/62 96 01/27/22 21:46 105 H 21 82/55 L 95 01/27/22 21:45 102 H 17 95 01/27/22 21:35 101 H 20 99/51 L 95 01/27/22 21:31 103 H 24 87/53 L 94 01/27/22 21:30 103 H 24 96 01/27/22 21:15 99 H 29 H 123/81 95 01/27/22 21:00 99 H 27 H 127/79 96 01/27/22 20:45 99 H 26 H 123/66 97 01/27/22 20:30 100 H 27 H 117/86 95 PG Care Time/CCT Total # of Minutes Spent Total Time Spent with Patient: Total time spent is greater than 50% in coordination of care (as documented) at patient's floor/unit and/or counseling patient: Coding Level of Care Code 81921 Subseq Hosp Care Lvl 2 Diagnoses Septic shock A41.9; R65.21 UTI (urinary tract infection) N39.0 ERUM (acute kidney injury) N17.9
--- NOTE | 2022-01-28 08:34 | Critical Care Progress Note ---
Date of Service January 28, 2022 Assessment & Plan (1) Septic shock: Plan: Impression: This is a 51-year-old male presents to the emergency room for concern of general unwellness. He was evaluated in the ED and found to have septic shock likely secondary to a urinary source given his recent history of TURP and use of Albrecht catheter. He received 4 L of NSS as well as a 6-minute course of Levophed improving his MAP greater than 65. Patient is clinically stable at this time. Plan: Neuro: No neurological problems at this time Respiratory: Oxygen demand has improved to room air. Oxygen as needed for saturations less than 90%. CV: Hypotension secondary to systemic infection from urinary source, improved from yesterday. Continue maintenance lactated Ringer's at 125 cc/h in the setting of NPO. Levophed as needed per ICU protocol. High-sensitivity troponins elevated at 77.3 likely secondary to poor perfusion. This should likely improve as fluid status is improved and septic picture improves with antibiotic therapy. GI: Patient presents with elevated transaminases suggestive of liver injury likely secondary to hypoperfusion, downtrending at this time. Total bilirubin increased from 2.8 to 4.1 and PT increased from 1.2 to 1.6. This is likely due to liver injury secondary to poor perfusion. Should improve gradually with increased fluid status and maintenance IV fluid, daily CMP. Renal: Patient presents with an ERUM secondary to hypoperfusion. Should improve with increased fluid status and maintenance IV fluid. Creatinine improved to 1.67 today with a baseline of 1.3. Electrolyte replacement per ICU protocol. CT scan of abdomen did show some concern of mild hydronephrosis with hydroureter on the left which may be concerning for pyelonephritis. Urology was consulted yesterday, appreciate recommendations. Possibly doing procedure today to evaluate the need for ureter stent due to possible obstruction, patient n.p.o. at this time. Patient additionally has hypomagnesemia, was given 1 g of magn esium yesterday and a repeat today was still at 1.3. Given additional 2 g of magnesium today. : Currently voiding without difficulty. Keep a close eye on I's and O's and if patient has poor output consider reinsertion of Albrecht catheter due to concern for possible outlet obstruction. TURP procedure did reveal a new diagnosis of prostate cancer. Endo: Hold Ozempic while in hospital, hyperglycemia protocol. Patient reports that last A1c was around 5.2 with the use of his ozempic. ID: Septic shock secondary to urinary source with recent history of Albrecht catheter use. Given that the patient has a clear source and being an otherwise healthy 51-year-old male, de-escalate antibiotics at this time to Rocephin 2 g daily for likely urinary source. Blood cultures taken prior to broad-spectrum antibiotics in the ED, will follow. Repeat procalcitonin 147 today. Diet: N.p.o. DVT prophylaxis: Heparin Disposition: Downgrade from ICU to Med Surg with Tele CODE STATUS: Full code (2) UTI (urinary tract infection): (3) Elevated LFTs: (4) ERUM (acute kidney injury): (5) Hypomagnesemia: (6) Elevated troponin: (7) Diabetes: (8) CHELY on CPAP: Admission and Anticipated Discharge Date Admission Date: January 27, 2022 Supervising Physician Co-Signing Physician Notes Patient seen and examined. EMR reviewed. Discussed with family practice resident and on multidisciplinary rounds. Agree with assessment and plan as noted above. Discussed with patient at bedside as well as with critical care nursing staff. Patient is symptomatically improved at this point time. His kidney function is improving but not yet back to normal. His liver function tests will need to continue to be trended but suspect they are likely related to hepatopathy related to sepsis. Gram-negative rods in the blood. Initial PCR suggest polymicrobial infection with Klebsiella and Enterobacter. Based on antibiogram, Rocephin should be adequate coverage. Recommend repeat surveillance cultures to ensure bacteremia has cleared and would recommend at least 7 to 10 days of antimicrobial therapy. We will need to restart metformin once the patient is taking adequate p.o. and his renal function is stabilized. He will follow-up with urology regarding his incidental diagnosis of prostate cancer. Patient has been off pressors for greater than 12 hours. Discussed with hospitalist. He is okay to transfer to the floor. Critical care services will sign off. Feel free to contact us if we can be of additional assistance. Subjective Patient seen at bedside this morning. No acute events reported overnight. Patient is reporting some gross hematuria causing his urine to be grossly orange in color. Otherwise able to void on his own without difficulty. Patient required additional Levophed up until 2000 hrs. yesterday evening. Has not required additional pressors since. Reports that he is feeling better. Did have a couple episodes of loose stools yesterday. More hungry than anything since he is on n.p.o., yet to be seen by urology this morning for further work- up for hydronephrosis/hydroureter. Oxygen requirement has decreased down to room air at this time from 2 L nasal cannula yesterday. Overall clinically seems to be improving. No other complaints at this time Review of Systems Review of Systems: All systems reviewed & are unremarkable except as noted in HPI & below Physical Exam Constitutional: well developed and well nourished Eyes: + anicteric sclerae Neck: normal visual inspection Respiratory: normal respiratory effort, lungs clear to auscultation Cardiovascular: RRR, no murmur, no edema Gastrointestinal (Abdomen): Inspection/Auscultation: abdomen normal to inspection and normal bowel sounds Percussion/Palpation: + abdomen tender (suprapubic) Musculoskeletal: Head/Neck/Chest: normocephalic and head atraumatic Skin: no rashes, warm and dry Neurologic: CN's II-XI intact bilaterally and moves all extremities Psychiatric: A+Ox3, euthymic affect Genitourinary: no CVA tenderness Lymphatic: no cervical lymphadenopathy Results & Data Results & Data ([facility]) Vital Signs (Past 12 Hours) Vital Signs Temp Pulse Resp BP Pulse Ox 01/28/22 06:00 117/77 01/28/22 05:45 101 H 18 92 01/28/22 05:43 38.3 C H 01/28/22 05:30 97 H 23 96 01/28/22 05:15 92 H 28 H 94 01/28/22 05:00 99 H 19 124/84 94 01/28/22 04:30 94 H 18 96 01/28/22 04:00 86 24 111/71 95 01/28/22 03:30 95 H 24 95 01/28/22 03:04 96 H 24 108/66 93 01/28/22 03:02 97 H 25 H 80/41 L 93 01/28/22 03:00 97 H 17 74/56 L 94 01/28/22 02:33 99 H 12 100/65 96 01/28/22 02:32 99 H 12 72/49 L 93 01/28/22 02:31 99 H 24 70/48 L 93 01/28/22 02:30 98 H 24 92 01/28/22 02:00 106 H 22 135/76 94 01/28/22 01:31 91 H 20 106/47 L 92 01/28/22 01:30 89 17 78/49 L 90 01/28/22 01:15 95 H 38 H 91 01/28/22 01:00 94 H 27 H 91/58 L 89 L 01/28/22 00:46 37.0 C 01/28/22 00:45 96 H 30 H 92 01/28/22 00:30 99 H 20 107/64 93 01/28/22 00:15 102 H 16 128/61 95 01/28/22 00:00 95 H 19 106/53 L 91 01/27/22 23:45 97 H 26 H 81/53 L 91 01/27/22 23:30 97 H 30 H 119/57 L 92 01/27/22 23:15 99 H 26 H 88/47 L 92 01/27/22 23:12 97 H 24 82/53 L 91 01/27/22 23:09 102 H 01/27/22 23:00 105 H 24 85/54 L 94 01/27/22 22:50 103 H 27 H 84/52 L 92 01/27/22 22:45 102 H 32 H 88/42 L 93 01/27/22 22:30 103 H 20 114/71 91 01/27/22 22:16 100 H 30 H 120/67 94 01/27/22 22:15 103 H 26 H 91 01/27/22 22:00 112 H 13 100/48 L 95 01/27/22 21:57 105 H 28 H 103/62 96 01/27/22 21:46 105 H 21 82/55 L 95 01/27/22 21:45 102 H 17 95 01/27/22 21:35 101 H 20 99/51 L 95 01/27/22 21:31 103 H 24 87/53 L 94 01/27/22 21:30 103 H 24 96 01/27/22 21:15 99 H 29 H 123/81 95 01/27/22 21:00 99 H 27 H 127/79 96 01/27/22 20:45 99 H 26 H 123/66 97 01/27/22 20:30 100 H 27 H 117/86 95
[2022-01-28] MEDS ORDERED: ATORVASTATIN 20 MG TAB PO SCH (09:00)
[2022-01-28] MEDS: HEPARIN SOD 5,000 UNIT/0.5 ML VIAL SQ SCH ×2 (09:47→20:36)
--- NOTE | 2022-01-28 10:19 | Billing Data ---
Date of Service January 28, 2022 Coding Level of Care Code 44580 Subseq Hosp Care Lvl 3
[2022-01-28] MEDS: cefTRIAXone SODIUM 2,000 MG in DEXTROSE 5% 50 ML IV SCH (13:16)
[2022-01-28] MEDS ORDERED: ACETAMINOPHEN 500 MG TAB PO ONE (14:23)
[2022-01-28] MEDS: ESZOPICLONE 1 MG TAB PO PRN (22:04)
[2022-01-29 06:05] LABS: BUN Creatinine Ratio 17.5 (10-20); Creatinine Clr Calc Pharmacy 89.7 ml/min; Est GFR (Non-African American) 65.6 ml/min; Potassium 3.6 mmol/L (3.5-5.1)
[2022-01-29 06:28] LABS: ANC (manual) 18.93 K/uL (1.4-6.5); Dohle Bodies 1+; Echinocytes 3+; Hematocrit (blood only) 33.8 % (40.1-51.0); Hemoglobin 11.9 g/dl (14.0-18.0); Lymphocytes % (manual) 3 %; Mean Corpuscular Hemoglobin 29.8 pg (25.0-34.0); Mean Corpuscular Hgb Conc 35.2 g/dL (32.0-36.0); Mean Corpuscular Volume 84.5 fL (80.0-100.0); Mean Platelet Volume 11.4 fL (9.4-12.4); Monocytes % (manual) 3 %; Neutrophils # (manual) 18.93 K/uL (1.4-6.5); Platelet Count 110 K/uL (130-400); RDW Coefficient of Variation 12.9 % (11.5-14.5); RDW Standard Deviation 39.2 fL (36.4-46.3); Toxic Vacuolation 1+; White Blood Count 20.14 K/ul (4.8-10.8)
[2022-01-29] MEDS: ACETAMINOPHEN 500 MG TAB PO PRN (06:53)
--- NOTE | 2022-01-29 07:58 | Urology Progress Note ---
Date of Service January 29, 2022 Assessment & Plan (1) Septic shock: (2) UTI (urinary tract infection): (3) ERUM (acute kidney injury): Plan: 51yo M admitted with septic shock likely secondary to a urinary source given his recent history of TURP (01/11) and Albrecht catheter. - Overall he is feeling much better. - Afebrile, Labs reviewed - WBC 20.14 today, Creatinine down to 1.26. - Urine culture preliminary with Citrobacter and Klebsiella. - Blood cultures preliminary with Klebsiella, repeat blood culture pending. - IV antibiotics changed from ceftriaxone to ciprofloxacin, follow cultures. - Voiding spontaneously, continue to monitor. Bladder scan prn. - Continue supportive care, antibiotic therapy, and close monitoring. - Recommend continue treatment with IV antibiotics while inpatient with transition to course of PO antibiotics upon discharge per final cultures. - Will arrange outpatient follow-up with our service. - Urology will sign-off. Please contact us with any further questions, concerns, or changes in patient status. Admission and Anticipated Discharge Date Admission Date: January 27, 2022 Subjective Patient examined at bedside this AM. Awake, sitting in bedside chair on arrival. Subjectively feeling much better. No fevers States he slept much better last night. Denies any pain or discomfort. Voiding without issue. Hematuria has improved. No dysuria. No fevers overnight. Some nausea earlier this morning, improved with Zofran. Still with a poor appetite and a few loose stools. Review of Systems Constitutional: as per Subjective / HPI Gastrointestinal: as per Subjective / HPI Genitourinary: + as per Subjective / HPI Physical Exam Constitutional: no acute distress Respiratory: no respiratory distress and no labored breathing Gastrointestinal (Abdomen): Inspection/Auscultation: abdomen normal to inspection Skin: No visible rashes or lesions Neurologic: moves all extremities and awake Psychiatric: Orientation: alert and oriented x 3 Results & Data ([facility]) Vital Signs (Past 12 Hours) Vital Signs Temp Pulse Resp BP Pulse Ox 01/29/22 06:00 93 H 14 01/29/22 05:45 36.6 C 93 H 22 132/84 94 01/28/22 23:42 88 01/28/22 22:00 36.8 C 88 22 124/76 94 01/28/22 21:45 92 H 12 01/28/22 21:00 97 H 21 01/28/22 20:45 97 H 22 01/28/22 20:42 37.0 C 96 H 18 120/80 97 PG Care Time/CCT Total # of Minutes Spent Total Time Spent with Patient: Total time spent is greater than 50% in coordination of care (as documented) at patient's floor/unit and/or counseling patient: Coding Level of Care Code 36223 Subseq Hosp Care Lvl 2 Diagnoses Septic shock A41.9; R65.21 UTI (urinary tract infection) N39.0 ERUM (acute kidney injury) N17.9
[2022-01-29] MEDS ORDERED: CIPROFLOXACIN / D5W 400 MG/200 ML BAG IV SCH (08:00)
[2022-01-29] MEDS: POTASSIUM CHLORIDE 20 MEQ/15 ML UDC PO SCH (08:24)
[2022-01-29] MEDS: HEPARIN SOD 5,000 UNIT/0.5 ML VIAL SQ SCH (08:25)
[2022-01-29] MEDS ORDERED: SODIUM CHLORIDE 0.9% 1000ML 500 ML IV ONE (11:20)
--- NOTE | 2022-01-29 11:36 | Discharge Summary ---
Date of Service January 29, 2022 Admission HPI Per Admitting Provider Jose is a 51-year-old male with past medical history significant for BPH and newly diagnosed prostate cancer, diabetes, hyperlipidemia, insomnia, and sleep apnea who presents today from home. 01/11, he had a TURP procedure done by Dr. Perez due to ongoing BPH symptoms and failing medical management. He handled the procedure well and was discharged the next day with Rosales catheter in place, which was removed yesterday, 01/26. Since then, he had been urinating blood and had decreased appetite. He did present to the ED on 01/25 with hematuria and intense feeling of needing to void despite catheter in place, patient was sent home with instructions to remain well-hydrated and follow-up with urology following day as scheduled for catheter removal. Otherwise had been well until this morning around 5 AM when he woke up with extreme chills, diaphoresis, and recorded temperature of 103 at home. Denies chest pain, palpitations, shortness of breath, cough, abdominal pain, nausea, vomiting. Initially presented to the ED with hypotension, 70s/50s, heart rate 120s, febrile 103F, SPO2 >95% on room air, however did desat down to low 90s, placed on 2L NC doing well. Labs significant for WBC 2.82, initial lactate 4.6, procalcitonin 26.76, CRP 2.90. Also significant for creatinine 2.16, magnesium 1.3, T bili 2.8, AST 268, ALT 131, alk phos 130. UA with nitrate, leukoesterase, white blood cells, blood, protein, bilirubin. CT A/P with mild left-sided hydronephrosis and hydroureter with no evidence for renal or ureteral calculus. Suspicion of abnormal bladder wall thickening of floor bladder along with diffuse mucosal thickening of bladder wall characteristic of chronic bladder outlet obstruction. Principal Diagnosis Sepsis and bacteremia due to complicated UTI Discharge Exam General: A&Ox3. NAD. Cooperative. HEENT: Atraumatic, normocephalic. Vision and hearing grossly intact Pulm: CTAB A&P. -wheezes, -rales, -rhonchi. Symmetrical chest rise. No increase in work of breathing. No respiratory distress. Cardiac: Regular, intermittently tachycardic, -mrg. Radial pulses intact and symmetrical. Abdominal: Nontender, nondistended, soft. BS present. Extremities: Warm, dry, well-perfused. Cap refill in thumb brisk. Discharge Data Allergies Allergy/AdvReac Type Severity Reaction Status Date / Time No Known Allergies Allergy Verified 01/26/22 12:55 Consultations 01/27/22 12:07 Consult Urology Routine 01/27/22 12:44 Consult Scrap Piler Routine Ordered Studies 01/27/22 09:09 CT abd pelvis wo con Stat Hospital Course (1) Septic shock: Salvador is a 51-year-old male with a history of urinary retention status post TURP, CHELY, and Peyronie's who presented to the ER with septic shock of suspected urinary origin To do as outpatient: 1. Follow-up with PCP and urologist 2. Repeat CMP/CBC within 1 week, follow normalization of transaminitis and leukocytosis likely 2/2 sepsis 3. Complete 10 additional days of ciprofloxacin for complicated UTI with gram- negative bacteremia 4. Resume statin once transaminitis resolves Sepsis 2/2 complicated UTI History of recent TURP 01/11 and Rosales removal - Febrile overnight to 38.3 WBC 20, NLR >40, transaminitis in the setting of hypotension, PCT 147 from 26. Blood culture rapid PCR positive for Enterobacter and Klebsiella. KPC Resistance gene not detected by PCR - Surveillance cultures ordered CT A/P:Mild left-sided hydronephrosis and hydroureter with no evidence for renal or ureteral calculus. Suspicion of abnormal bladder wall thickening of the floor of the bladder along with diffuse mucosal thickening of the bladder wall characteristic of chronic bladder outlet obstruction. - WBC 2.82, initial lactate 4.6, down 2.9 after IVF. CRP 2.90, PCT 26.76. Elevated troponin, LFTS and ERUM which down trended Hypotensive with MAP less than 60 on admission, received 4 L boluses, was placed on LR IV FM and nor epi. MAP maintained greater than 65 - Nor epi weaned to ~2000hrs 7/8 Initial Meraz/Zosyn switched to Dapto/Zosyn and subsequently narrowed to Rocephin. This was switched to Cipro based on sensitivities Urine cultures: Citrobacter and Klebsiella. Citrobacter with inducible cephalosporin resistance switched to ciprofloxacin. - Urology consulted. No plans for surgical intervention. Supportive care, follow I&os, rosales if retaining; no retention was appreciated during admission - Blood cultures: Klebsiella 2/2. Surveillance cultures negative for 24 hours at time of discharge ERUM 2/2 sepsis Received fluid resuscitation as noted. DC IVF, diet improved Creatinine peaked at 2.38, downtrending, then normalized Hypomagnesemia Magnesium 1.3, repleted with 1 g, repeat 1.3 Additional repletion x2g during admission Elevated troponin - Suspect demand High-sensitivity troponin midly elevated on admit EKG with sinus tachycardia without ST segment/T wave changes - No qt prolongation In the setting of demand ischemia and sepsis Clinically without chest pain/signs of ACS Transaminitis AST/ALT/alk phos/T bili elevated on admission AST/ALT downtrending, T bili slightly uptrending CT A/P on admission did not show any acute gallbladder/liver pathology Trend in 1 week as outpatient Prostate cancer History of TURP 01/11, Cameron 3+3 Has outpatient follow-up in 2 to 3 months with urology for further management, no acute intervention at this time T2 diabetes mellitus BSG 80-90s, SSI not required Home glycemic held Insomnia Uses Lunesta nightly [place] Hyperlipidemia Statin held for transaminitis CHELY Continue CPAP nightly (2) UTI (urinary tract infection): - Management as above. (3) ERUM (acute kidney injury): (4) Hypomagnesemia: (5) Elevated troponin: (6) Elevated LFTs: (7) Prostate cancer: (8) Diabetes: (9) Insomnia: (10) Hyperlipidemia: (11) CHELY on CPAP: Total Time Total Time Spent Total Time Spent (In Minutes): Time spend day of discharge 45 minutes including direct patient care, documentation, review of labs and images, and coordination of care. Discharge Plan Discharge Items Patient Disposition: Home - Self-Care Reason For Visit: SEPTIC SHOCK S/P TURP Discharge Diagnosis: Bacteremia, Complicated UTI Activity: Resume your previous activity Non-emergency contact: Primary Care Provider and Urologist Call non-emergency contact if: you have any medication questions, your symptoms worsen and your pain is not controlled Follow-up/Referrals: Ciro Perez DO [Physician] - 04/06/22 2:30 pm Rommel Dey [Primary Care Provider] - 02/03/22 8:45 am Diet: Regular Addtl Attending Provider Instructions: You were seen in the hospital for sepsis and bacteremia due to a complicated UTI following TURP. You clinically improved with antibiotics, your antibiotics were adjusted based on sensitivities day of discharge and you were discharged to complete an days of antibiotics as outpatient as noted below. You were voiding well, and felt at your baseline level of health at time of discharge. You did not show any signs of urinary retention. Follow-up is being arranged for you with your primary care provider and urology. Your blood cultures were positive for Klebsiella, a type of gram-negative bacteria. Your urine cultures were positive for Citrobacter, bacteria with inducible resistance to certain antibiotics called cephalosporins, and the same Klebsiella found in your blood. You have been prescribed an antibiotic, ciprofloxacin. Please take ciprofloxacin 500 mg by mouth twice daily for 10 days. Your atorvastatin is temporarily been held due to a mild elevation of liver enzymes which were improving but not yet normalized at time of discharge. Please have repeat blood work to check these enzymes drawn by your primary care provider, and you may resume your atorvastatin if/when these return to normal. You did have an increase in your heart enzymes, troponin. He did not show any evidence of a heart attack during admission, this was likely due to sepsis. If you develop any new or worsening symptoms including fever, chills, sweats, chest pain, chest pressure, difficulty breathing, uncontrolled nausea/vomiting, rash, wheezing, passing out or nearly passing out, bleeding, black/bloody bowel movements, or other new or concerning symptoms please call your primary care physician, or call 911 for re-evaluation in the emergency department if you are very concerned. Pending Studies at Discharge: No Stand-Alone Forms: [facility], Smoking Cessation Medications and DC Order Prescriptions: New ciprofloxacin HCl 500 mg tablet 500 mg PO Q12H 10 Days Qty: 20 RF: 0 Continued alprazolam 0.5 mg tablet 0.5 mg PO DAILY PRN (Reason: Anxiety) RF: 0 eszopiclone 1 mg tablet 1 mg PO QPM PRN (Reason: Sleep) RF: 0 atorvastatin 20 mg tablet 20 mg PO QAM Qty: 90 RF: 0 epinephrine [EpiPen] 0.3 mg/0.3 mL auto-injector 0.3 mg IM Q10M PRN (Reason: anaphylaxis) Qty: 2 RF: 1 multivitamin Tablet 1 tab PO QAM RF: 0 docusate sodium [Colace] 100 mg capsule 100 mg PO BID Qty: 30 RF: 0 phenazopyridine [Pyridium] 100 mg tablet 100 mg PO BID PRN (Reason: pain) Qty: 7 RF: 0 oxycodone 5 mg tablet 5 mg PO Q8H PRN (Reason: pain) Qty: 5 RF: 0 Ozempic 1 mg/dose (4 mg/3 mL) Pen Injector 1 mg SUBCUT WK RF: 0 alfuzosin 10 mg tablet extended release 24 hr 10 mg PO QPM RF: 0 sildenafil (pulm.hypertension) 20 mg tablet 100 mg PO DIRECTED PRN (Reason: sexual activity) RF: 0 Discharge Orders: Discharge Order (Routine); Ordered 01/29/22 Ordered By: Dick Brock Admission Data Admit Date/Time: 01/27/22 10:25 Attending Provider: Dick Brock Admit Provider: Dionicio iVlla Primary Care Provider: Rommel Dey Other Providers: Tamanna Burgess ; Amaury Reese ; [facility] Coding Level of Care Code D/C DAY MANAGEMENT >30 MINS Diagnoses Septic shock A41.9; R65.21 UTI (urinary tract infection) N39.0 ERUM (acute kidney injury) N17.9 Hypomagnesemia E83.42 Elevated troponin R77.8 Elevated LFTs R79.89 Prostate cancer C61 Diabetes E11.9 Insomnia G47.00 Hyperlipidemia E78.5 CHELY on CPAP G47.33; Z99.89
[2022-02-03 05:30] LABS: Metamyelocytes % (manual) 2 %; Neutrophils % (manual) 93 %; Platelet Estimate #D (Normal)
== END 2022-01-29 13:10 | disposition home or self-care (01) | DRG 698 ==
LOC: ED 07:41 → 1E 10:25 → SUATTDRO 10:25 → 1E 12:23

== ENCOUNTER 2023-09-09 19:58 | Observation (INO) ==
[2023-09-09 21:00] LABS: Appearance Urine Clear (Clear); Bilirubin Urine Negative (Negative); Blood Urine Negative (Negative); Color Urine Yellow; Glucose Urine UA Negative (Negative); Ketones Urine Negative (Negative); Leukocyte Esterase Urine Negative (Negative); Nitrite Urine Negative (Negative); Protein Urine Negative (Negative); Specific Gravity Urine 1.026 (1.000-1.030); Urobilinogen Urine Negative (Negative); pH Urine 5.5 (4.5-7.5)
[2023-09-09 21:01] LABS: Basophils # (auto) 0.03 K/uL (0.00-0.20); Basophils % (auto) 0.4 %; Eosinophils # (auto) 0.15 K/uL (0.00-0.50); Eosinophils % (auto) 1.9 %; Hematocrit (blood only) 42.5 % (42.0-52.0); Hemoglobin 14.1 g/dl (14.0-18.0); Immature Granulocytes # (auto) 0.01 K/uL (0.01-0.20); Immature Granulocytes % (auto) 0.1 %; Lymphocytes # (auto) 2.86 K/uL (1.20-3.40); Lymphocytes % (auto) 36.2 %; Mean Corpuscular Hemoglobin 29.4 pg (25.0-34.0); Mean Corpuscular Hgb Conc 33.2 g/dL (32.0-36.0); Mean Corpuscular Volume 88.5 fL (80.0-100.0); Mean Platelet Volume 10.4 fL (9.4-12.4); Monocytes # (auto) 0.58 K/uL (0.11-0.59); Monocytes % (auto) 7.4 %; Neutrophils # (auto) 4.26 K/uL (1.40-6.50); Platelet Count 219 K/uL (130-400); RDW Coefficient of Variation 12.8 % (11.5-14.5); RDW Standard Deviation 41.9 fL (36.4-46.3); White Blood Count 7.89 K/ul (4.8-10.8)
[2023-09-09 21:17] LABS: Albumin Globulin Ratio 1.7 (0.9-2); Albumin Level 4.7 gm/dl (3.4-5.0); BUN Creatinine Ratio 13.2 (10-20); Bilirubin,Total 1.2 mg/dl (0.2-1.0); Calcium 9.7 mg/dl (8.6-10.3); Creatinine Clr Calc Pharmacy 90.8 ml/min; Est GFR (African American) 78.7 ml/min; Est GFR (Non-African American) 67.9 ml/min; Globulin 2.7 gm/dl (2.5-4.0); Potassium 3.7 mmol/L (3.5-5.1); Total Protein 7.4 gm/dl (6.0-8.3)
[2023-09-09] MEDS: OPTIRAY 320 500ml IV ONE (22:09)
--- NOTE | 2023-09-09 22:38 | CT Scan Report ---
Exam(s): CT ABDOMEN + PELVIS With Contrast IV Amt: 85 cc opti 320 EXAM: CT Abdomen and Pelvis With Intravenous Contrast CLINICAL HISTORY: Reason for exam: rlq pain. TECHNIQUE: Axial computed tomography images of the abdomen and pelvis with intravenous contrast. CTDI is 27.06 mGy and DLP is 1503.66 mGy-cm. Automated exposure control was utilized for the study. A dose lowering technique was utilized adhering to the principles of ALARA. CONTRAST: Patient received 85 cc opti 320 of IV contrast COMPARISON: 01/27/2022 FINDINGS: ABDOMEN: Liver: Unremarkable. Gallbladder and bile ducts: Unremarkable. Pancreas: Unremarkable. Spleen: Unremarkable. Adrenals: Unremarkable. Kidneys and ureters: Unremarkable. No obstructing stones. No hydronephrosis. Stomach and bowel: Unremarkable. PELVIS: Appendix: The distal appendix is inflamed with periappendiceal fat stranding. Not significantly dilated but given the fat stranding findings are consistent with acute appendicitis in the appropriate clinical setting. No evidence of perforation. No abscess. Bladder: Unremarkable. Reproductive: Unremarkable as visualized. ABDOMEN and PELVIS: Intraperitoneal space: Unremarkable. No free air. No significant fluid collection. Bones/joints: No acute fracture. Soft tissues: Unremarkable. Vasculature: Unremarkable. Lymph nodes: Unremarkable. IMPRESSION: The distal appendix is inflamed with periappendiceal fat stranding. Not significantly dilated but given the fat stranding findings are consistent with acute appendicitis in the appropriate clinical setting. No evidence of perforation. No abscess. Communications: Verify Receipt Electronically signed by: Issa Guzman MD 09/09/23 22:38 PM
--- NOTE | 2023-09-09 23:35 | Emergency Department Note ---
ED Provider Note History of Present Illness Chief Complaint: Abdominal Pain Stated Complaint: ABDOMINAL PAIN Time Seen by Provider: 09/09/23 21:20 Source: patient Mode of arrival: ambulatory Limitations: no limitations This patient is a 53-year-old male who presents to the emergency department for evaluation of abdominal pain. Patient reports that pain started about 2 days ago and is in the right lower side. Pain is worse with movement/walking. He denies any vomiting, changes in bowel movements, urinary symptoms or fevers. Patient recently had Mohs surgery and is currently on Keflex for an infected surgical wound. Home Medications Medication Instructions Recorded Confirmed Type atorvastatin 20 mg tablet 20 mg PO QAM #90 tabs 04/20/19 09/09/23 History epinephrine 0.3 mg/0.3 mL 0.3 mg (0.3 mL) IM Q10M PRN 05/08/21 09/09/23 Rx injection, auto-injector (EpiPen) anaphylaxis #2 ea multivitamin 1 tab PO QAM 01/07/22 09/09/23 History sildenafil (pulm.hypertension) 20 100 mg (5 x 20 mg) PO DIRECTED 08/09/22 09/09/23 Rx mg tablet PRN sexual activity #30 tabs cephalexin 500 mg capsule 500 mg PO BID 09/09/23 09/09/23 History clonazepam 0.5 mg tablet 0.5 mg PO DAILY PRN Anxiety 09/09/23 09/09/23 History fluticasone 500 mcg-salmeterol 50 1 inh inhalation BID PRN Shortness 09/09/23 09/09/23 History mcg/dose blistr powdr for Of Breath Or Wheezing inhalation losartan 25 mg tablet 25 mg PO DAILY 09/09/23 09/09/23 History semaglutide 2 mg/dose (8 mg/3 mL) 2 mg subcut WK 09/09/23 09/09/23 History subcutaneous pen injector (Ozempic) zolpidem 5 mg tablet 5 mg PO HS PRN Sleep 09/09/23 09/09/23 History Allergies Allergy/AdvReac Type Severity Reaction Status Date / Time bee venom protein (honey bee) Allergy Severe Swelling Verified 09/09/23 23:55 of Lip/Tongue/Throat--CARRIES AN EPIPEN Past Med/Surg History Medical History Elevated troponin Hypomagnesemia ERUM (acute kidney injury) Encounter for pre-operative examination History of COVID-19 07/2021 Flu-like symptoms, fever > resolved Diabetes Hyperlipidemia Benign prostatic hyperplasia with urinary obstruction Chronic kidney disease, stage I 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 Severe obstructive sleep apnea Per records Surgical History S/P colonoscopy 2020 Status post finger joint fusion RIGHT RING FINGER H/O elbow surgery LEFT S/P bladder repair Status post hip surgery LEFT S/P ACL reconstruction LEFT-1988 Family History Father Hypertension Diabetes Family/Other Bladder cancer Social History Smoking Status: Never smoker Second Hand Exposure: No; Do You Dip or Chew Tobacco: No; Hx Alcohol Use: Yes Alcohol type: beer and wine Hx Substance Use: No Preferred Language: Setswana Communication Ability: Effective Farmworker Required: No Beliefs That Will Affect Care: None marital status: Current Living Situation: Family Current Living Situation Comment: lives with and children current occupational status: employed How many Children do You have: 3 Feels Safe at Home: Yes Assistive Devices: CPAP Physical Exam Vital Signs Vital Signs - 24 hr 09/09/23 20:14 09/10/23 00:07 09/10/23 00:20 Temperature 36.7 C Temperature Source Temporal Artery Scan Pulse Rate 87 74 Pulse Rate [Apical] 78 Respiratory Rate 18 18 Respiratory Effort / Characteristics Non-Labored Spontaneous Non-Labored Respiratory Depth Normal Normal Respiratory Pattern Regular Blood Pressure 108/74 Blood Pressure [Right Arm] 115/67 Blood Pressure Mean 85 Blood Pressure Mean [Right Arm] 83 Blood Pressure Position [Right Arm] Lying Pulse Oximetry 96 95 Oxygen Delivery Method Room Air Room Air Sepsis Recent Fever Within 48 Hours No Sepsis New/Unexplained Change in Mental Status No Sepsis Action Taken by Nursing No Action Required VITALS: Vitals are noted on the nurse's note and reviewed by myself. GENERAL: This is a 53-year-old male, in no acute distress, well-developed well- nourished. SKIN: Healing wound to the left lower extremity with surrounding erythema. HEART: Regular rate and rhythm without murmurs gallops or rubs. LUNGS: Clear to auscultation bilaterally without wheezes, rales or rhonchi. ABDOMEN: Positive bowel sounds x 4. Soft, moderate tenderness to palpation of the right lower quadrant with rebound tenderness. NEURO: Patient was alert and oriented to person place and time. Course Administered Medications Discontinued Medications Ioversol (Optiray 320 500ml) 85 ml IV ONCE ONE Stop: 09/09/23 22:09 Last Admin: 09/09/23 22:09 Dose: 85 ml Documented By: GEPerry Morphine Sulfate (Morphine Sulfate 10 Mg/Ml Carp/Vial) 6 mg IV NOW STA Stop: 09/10/23 00:18 Last Admin: 09/10/23 00:22 Dose: 6 mg Documented By: MMG Ondansetron HCl (Ondansetron Inj 2 Mg/Ml 2 Ml Vial) 4 mg IV NOW STA Stop: 09/10/23 00:18 Last Admin: 09/10/23 00:22 Dose: 4 mg Documented By: MMG Medical Decision Making Differential Diagnosis Appendicitis, testicular torsion, infections, diverticulitis, UTI, obstruction, mesenteric ischemia, aortic pathology, inflammatory bowel disease, renal colic, PUD, pancreatitis, biliary pathology, hernia, volvulus, constipation, as well as other pathologies. Home Medications was personally reviewed by me Laboratory Data Attestation: I reviewed the patient's lab results. 09/09/23 20:30 09/09/23 20:30 Lab Results 09/09/23 09/09/23 Range/Units 20:25 20:30 WBC 7.89 (4.8-10.8) K/ul RBC 4.80 (4.70-6.10) M/uL Hgb 14.1 (14.0-18.0) g/dl Hct 42.5 (42.0-52.0) % MCV 88.5 (80.0-100.0) fL MCH 29.4 (25.0-34.0) pg MCHC 33.2 (32.0-36.0) g/dL RDW Std Deviation 41.9 (36.4-46.3) fL RDW Coeff of Tresa 12.8 (11.5-14.5) % Plt Count 219 (130-400) K/uL MPV 10.4 (9.4-12.4) fL Immature Gran % (Auto) 0.1 % Neut % (Auto) 54.0 % Lymph % (Auto) 36.2 % Terry % (Auto) 7.4 % Eos % (Auto) 1.9 % Baso % (Auto) 0.4 % Neut # (Auto) 4.26 (1.40-6.50) K/uL Lymph # (Auto) 2.86 (1.20-3.40) K/uL Terry # (Auto) 0.58 (0.11-0.59) K/uL Eos # (Auto) 0.15 (0.00-0.50) K/uL Baso # (Auto) 0.03 (0.00-0.20) K/uL Immature Gran # (Auto) 0.01 (0.01-0.20) K/uL Sodium 139 (136-145) mmol/L Potassium 3.7 (3.5-5.1) mmol/L Chloride 104 (98-107) mmol/L Carbon Dioxide 29 (21-32) mmol/L Anion Gap 6 (3-11) BUN 16 (6-23) mg/dl Creatinine 1.21 (0.6-1.4) mg/dl Est Cr Clr Drug Dosing 90.8 ml/min Est GFR ( Amer) 78.7 ml/min Est GFR (Non-Af Amer) 67.9 ml/min BUN/Creatinine Ratio 13.2 (10-20) Glucose 92 (70-99(Fasting)) mg/dl Calcium 9.7 (8.6-10.3) mg/dl Total Bilirubin 1.2 H (0.2-1.0) mg/dl AST 33 (13-39) U/L ALT 26 (7-52) U/L Alkaline Phosphatase 80 (34-104) U/L Total Protein 7.4 (6.0-8.3) gm/dl Albumin 4.7 (3.4-5.0) gm/dl Globulin 2.7 (2.5-4.0) gm/dl Albumin/Globulin Ratio 1.7 (0.9-2) Lipase 109 H (11-82) U/L Urine Color Yellow Urine Appearance Clear (Clear) Urine pH 5.5 (4.5-7.5) Ur Specific [place] 1.026 (1.000-1.030) Urine Protein Negative (Negative) Urine Glucose (UA) Negative (Negative) Urine Ketones Negative (Negative) Urine Blood Negative (Negative) Urine Nitrite Negative (Negative) Urine Bilirubin Negative (Negative) Urine Urobilinogen Negative (Negative) Ur Leukocyte Esterase Negative (Negative) Imaging Data Attestation: I personally reviewed and interpreted this imaging study as follows: Radiologist's Impression: Abdomen/Pelvis CT 09/09/23 21:20 CR Exam(s): CT ABDOMEN + PELVIS With Contrast IV Amt: 85 cc opti 320 EXAM: CT Abdomen and Pelvis With Intravenous Contrast CLINICAL HISTORY: Reason for exam: rlq pain. TECHNIQUE: Axial computed tomography images of the abdomen and pelvis with intravenous contrast. CTDI is 27.06 mGy and DLP is 1503.66 mGy-cm. Automated exposure control was utilized for the study. A dose lowering technique was utilized adhering to the principles of ALARA. CONTRAST: Patient received 85 cc opti 320 of IV contrast COMPARISON: 01/27/2022 FINDINGS: ABDOMEN: Liver: Unremarkable. Gallbladder and bile ducts: Unremarkable. Pancreas: Unremarkable. Spleen: Unremarkable. Adrenals: Unremarkable. Kidneys and ureters: Unremarkable. No obstructing stones. No hydronephrosis. Stomach and bowel: Unremarkable. PELVIS: Appendix: The distal appendix is inflamed with periappendiceal fat stranding. Not significantly dilated but given the fat stranding findings are consistent with acute appendicitis in the appropriate clinical setting. No evidence of perforation. No abscess. Bladder: Unremarkable. Reproductive: Unremarkable as visualized. ABDOMEN and PELVIS: Intraperitoneal space: Unremarkable. No free air. No significant fluid collection. Bones/joints: No acute fracture. Soft tissues: Unremarkable. Vasculature: Unremarkable. Lymph nodes: Unremarkable. IMPRESSION: The distal appendix is inflamed with periappendiceal fat stranding. Not significantly dilated but given the fat stranding findings are consistent with acute appendicitis in the appropriate clinical setting. No evidence of perforation. No abscess. Communications: Verify Receipt Electronically signed by: Issa Guzman MD 09/09/23 22:38 PM [facility] Narrative This patient is a 53-year-old male who presents to the emergency department for evaluation of right lower quadrant abdominal pain. Labs revealed no leukocytosis, anemia or concerning electrolyte abnormalities. Lipase slightly elevated. Urinalysis not suggestive of infection. CT of the abdomen/pelvis performed and reviewed by radiology and does show evidence of appendicitis. Patient informed of the findings. Case was discussed with general surgeon, Dr. Hair who will admit the patient for further management. Discharge Plan Visit Data Chief Complaint: Abdominal Pain Stated Complaint: ABDOMINAL PAIN ED Provider: Delvis Merlos ED Midlevel Provider: Justine Oscar Forms Stand Alone Forms: [facility] Prescriptions Prescriptions: No Action sildenafil (pulm.hypertension) 20 mg tablet 100 mg PO DIRECTED PRN (Reason: sexual activity) Qty: 30 5RF Rx Instructions: Take approx 1 hour prior to activity. Do not exceed 100 mg in 24 hours. atorvastatin 20 mg tablet 20 mg PO QAM Qty: 90 epinephrine [EpiPen] 0.3 mg/0.3 mL auto-injector 0.3 mg IM Q10M PRN (Reason: anaphylaxis) Qty: 2 1RF multivitamin Tablet 1 tab PO QAM clonazepam 0.5 mg tablet 0.5 mg PO DAILY PRN (Reason: Anxiety) cephalexin 500 mg capsule 500 mg PO BID Rx Instructions: STARTED 09/07/23 FOR 7 DAYS fluticasone propion-salmeterol 500-50 mcg/dose blister with device 1 inh INHALATION BID PRN (Reason: Shortness Of Breath Or Wheezing) losartan 25 mg tablet 25 mg PO DAILY zolpidem 5 mg tablet 5 mg PO HS PRN (Reason: Sleep) Ozempic 2 mg/dose (8 mg/3 mL) pen injector 2 mg SUBCUT WK Rx Instructions: SUNDAYS Referrals Referrals: Rommel Dey [Primary Care Provider] -
[2023-09-10] MEDS: ONDANSETRON INJ 2 MG/ML 2 ML VIAL IV STA (00:22)
[2023-09-10] MEDS: MoRPHine SULFATE 10 MG/ML CARP/VIAL IV STA (00:22)
--- NOTE | 2023-09-10 01:14 | History & Physical Report ---
Date of Service September 10, 2023 Assessment & Plan (1) Acute appendicitis: Plan: 53 yr old man with acute appendicitis. Discussed laparoscopic appendectomy with risks of bleeding, infection, conversion to open, postop ileus/ abscess, negative appy. Expected recovery period of 1-2 weeks reviewed. Consent signed. Will keep npo on antibiotics with plan appendectomy in the morning. History of Present Illness Chief Complaint: abdominal pain Primary Care Provider: Rommel Dey 53 yr old man with abdominal pain for the last few days, worse in the right lower quadrant, worse with movements, could not get comfortable. Sharp/ stabbing, moderate intensity, no radiation. No similar symptoms in the past. No relieving factors. No change in bowel habits. Last meal was 6 pm. On ozempic. On antibiotics for infection following recent Moh's surgery. History of sepsis following a TURP. Allergies Allergy/AdvReac Type Severity Reaction Status Date / Time bee venom protein (honey bee) Allergy Severe Swelling Verified 09/09/23 23:55 of Lip/Tongue/Throat--CARRIES AN EPIPEN Home Medications Medication Instructions Recorded Confirmed Type atorvastatin 20 mg tablet 20 mg PO QAM #90 tabs 04/20/19 09/09/23 History epinephrine 0.3 mg/0.3 mL 0.3 mg (0.3 mL) IM Q10M PRN 05/08/21 09/09/23 Rx injection, auto-injector (EpiPen) anaphylaxis #2 ea multivitamin 1 tab PO QAM 01/07/22 09/09/23 History sildenafil (pulm.hypertension) 20 100 mg (5 x 20 mg) PO DIRECTED 08/09/22 09/09/23 Rx mg tablet PRN sexual activity #30 tabs cephalexin 500 mg capsule 500 mg PO BID 09/09/23 09/09/23 History clonazepam 0.5 mg tablet 0.5 mg PO DAILY PRN Anxiety 09/09/23 09/09/23 History fluticasone 500 mcg-salmeterol 50 1 inh inhalation BID PRN Shortness 09/09/23 09/09/23 History mcg/dose blistr powdr for Of Breath Or Wheezing inhalation losartan 25 mg tablet 25 mg PO DAILY 09/09/23 09/09/23 History semaglutide 2 mg/dose (8 mg/3 mL) 2 mg subcut WK 09/09/23 09/09/23 History subcutaneous pen injector (Ozempic) zolpidem 5 mg tablet 5 mg PO HS PRN Sleep 09/09/23 09/09/23 History Past Med/Surg History Medical History Elevated troponin Hypomagnesemia ERUM (acute kidney injury) Encounter for pre-operative examination History of COVID-19 07/2021 Flu-like symptoms, fever > resolved Diabetes Hyperlipidemia Benign prostatic hyperplasia with urinary obstruction Chronic kidney disease, stage I 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 Severe obstructive sleep apnea Per records Surgical History S/P colonoscopy 2020 Status post finger joint fusion RIGHT RING FINGER H/O elbow surgery LEFT S/P bladder repair Status post hip surgery LEFT S/P ACL reconstruction LEFT-1988 Family History Father Hypertension Diabetes Family/Other Bladder cancer Social History Smoking Status: Never smoker Second Hand Exposure: No; Do You Dip or Chew Tobacco: No; Hx Alcohol Use: Yes Alcohol type: beer and wine Hx Substance Use: No Preferred Language: Welsh Communication Ability: Effective Logging Truck Driver Required: No Beliefs That Will Affect Care: None marital status: Current Living Situation: Family Current Living Situation Comment: lives with and children current occupational status: employed How many Children do You have: 3 Feels Safe at Home: Yes Assistive Devices: CPAP Review of Systems Review of Systems: All systems reviewed & are unremarkable except as noted in HPI & below Physical Exam Constitutional: WD/WN, vitals as above Eyes: PERRL, conjunctivae normal, anicteric sclerae ENMT: Ears: no hearing impairment Neck: trachea midline, no thyromegaly Respiratory: normal respiratory effort, lungs clear to auscultation Cardiovascular: RRR, no murmur, no edema Gastrointestinal (Abdomen): Inspection/Auscultation: abdomen normal to inspection and normal bowel sounds; abdomen not distended Percussion/Palpation: + abdomen tender (right lower quadrant with guarding) and abdomen soft Neurologic: awake; no focal motor deficits Psychiatric: A+Ox3, euthymic affect Results & Data Results & Data Vital Signs (Past 12 Hours) Vital Signs Temp Pulse Pulse Resp BP BP Pulse Ox 09/10/23 00:20 74 09/10/23 00:07 78 18 115/67 95 09/09/23 20:14 36.7 C 87 18 108/74 96 O2 Del Method 09/10/23 00:20 09/10/23 00:07 Room Air 09/09/23 20:14 Room Air Laboratory Results Abnormal lab results 09/09/23 Range/Units 20:30 Total Bilirubin 1.2 H (0.2-1.0) mg/dl Lipase 109 H (11-82) U/L Diagnostic Findings [facility] [place] [phone] CT Scan Report Patient: CINDY PULLIAM Admit Date: 09/09/23 MR#: [id number] Address1: [address] [place] [address] Acct ID:[id number] Address2: Date: 1970 [facility] Zip: [place] [address] Age: 53 Location: ED Sex: M Room/Bed: Att Phy: Diagnosis: ABDOMINAL PAIN Radha Phy: Rommel Dey DO Service Date: 09/09/23 Fam Phy: Interpreting Phy: Issa Guzman MDAdmit Phy: Ordering Phy: Justine Oscar PA-C cc: ~ ADDENDUM ADDENDUM: 09/09/23 23:06 Verify Receipt Verified receipt with [facility] for RONIT Fletcher on 09/09 23:06 (-05:00) Electronically signed by: Issa Guzman MD Electronically signed by: Issa Guzman MD 09/09/23 22:38 PM ADDENDUM END Exam(s): CT ABDOMEN + PELVIS With Contrast IV Amt: 85 cc opti 320 EXAM: CT Abdomen and Pelvis With Intravenous Contrast CLINICAL HISTORY: Reason for exam: rlq pain. TECHNIQUE: Axial computed tomography images of the abdomen and pelvis with intravenous contrast. CTDI is 27.06 mGy and DLP is 1503.66 mGy-cm. Automated exposure control was utilized for the study. A dose lowering technique was utilized adhering to the principles of ALARA. CONTRAST: Patient received 85 cc opti 320 of IV contrast COMPARISON: 01/27/2022 FINDINGS: ABDOMEN: Liver: Unremarkable. Gallbladder and bile ducts: Unremarkable. Pancreas: Unremarkable. Spleen: Unremarkable. Adrenals: Unremarkable. Kidneys and ureters: Unremarkable. No obstructing stones. No hydronephrosis. Stomach and bowel: Unremarkable. PELVIS: Appendix: The distal appendix is inflamed with periappendiceal fat stranding. Not significantly dilated but given the fat stranding findings are consistent with acute appendicitis in the appropriate clinical setting. No evidence of perforation. No abscess. Bladder: Unremarkable. Reproductive: Unremarkable as visualized. ABDOMEN and PELVIS: Intraperitoneal space: Unremarkable. No free air. No significant fluid collection. Bones/joints: No acute fracture. Soft tissues: Unremarkable. Vasculature: Unremarkable. Lymph nodes: Unremarkable. IMPRESSION: The distal appendix is inflamed with periappendiceal fat stranding. Not significantly dilated but given the fat stranding findings are consistent with acute appendicitis in the appropriate clinical setting. No evidence of perforation. No abscess. Code Status & VTE Plan VTE Prophylaxis Plan VTE Prophylaxis will be ordered: Yes
[2023-09-10] MEDS: KETOROLAC 30 MG/ML VIAL IV ONE (02:41)
[2023-09-10] MEDS ORDERED: MoRPHine SULFATE 4 MG/ML 1 ML CARP\\VIAL IV PRN (04:37)
[2023-09-10] MEDS ORDERED: ONDANSETRON INJ 2 MG/ML 2 ML VIAL IV PRN ×2 (04:37→11:04)
[2023-09-10] MEDS ORDERED: oxyCODONE/ACETAMINOPHEN 5mg/325mg TAB PO PRN ×2 (04:37)
[2023-09-10] MEDS: cefOXitin 2,000 MG in DEXTROSE 5 % MINI-B 50 ML IV STA (05:14)
[2023-09-10] MEDS: LACTATED RINGER'S 1,000 ML IV SCH (05:14)
--- NOTE | 2023-09-10 07:19 | Anesthesiology Consultation ---
Date of Service September 10, 2023 Assessment & Plan Chart Review Chart Review: data entry processor initiated History Surgery Operation Date: 09/10/23 11:00 Proposed Procedures p Laparoscopic Appendectomy - Janey Hair MD Height/Weight Height: 6 ft 2 in Weight: 104.77 kg Allergies Allergy/AdvReac Type Severity Reaction Status Date / Time bee venom protein (honey bee) Allergy Severe Swelling Verified 09/09/23 23:55 of Lip/Tongue/Throat--CARRIES AN EPIPEN Medications Home Medications Medication Instructions Recorded Confirmed Last Taken atorvastatin 20 mg tablet 20 mg PO QAM #90 tabs 04/20/19 09/09/23 09/09/23 epinephrine 0.3 mg/0.3 mL 0.3 mg (0.3 mL) IM Q10M PRN 05/08/21 09/09/23 Unknown injection, auto-injector (EpiPen) anaphylaxis #2 ea multivitamin 1 tab PO QAM 01/07/22 09/09/23 09/09/23 sildenafil (pulm.hypertension) 20 100 mg (5 x 20 mg) PO DIRECTED 08/09/22 09/09/23 Unknown mg tablet PRN sexual activity #30 tabs cephalexin 500 mg capsule 500 mg PO BID 09/09/23 09/09/23 09/09/23 clonazepam 0.5 mg tablet 0.5 mg PO DAILY PRN Anxiety 09/09/23 09/09/23 Unknown fluticasone 500 mcg-salmeterol 50 1 inh inhalation BID PRN Shortness 09/09/23 09/09/23 Unknown mcg/dose blistr powdr for Of Breath Or Wheezing inhalation losartan 25 mg tablet 25 mg PO DAILY 09/09/23 09/09/23 09/09/23 semaglutide 2 mg/dose (8 mg/3 mL) 2 mg subcut WK 09/09/23 09/09/23 09/04/23 subcutaneous pen injector (Ozempic) zolpidem 5 mg tablet 5 mg PO HS PRN Sleep 09/09/23 09/09/23 Unknown Active Medications Generic Name Dose Route Start Last Admin Trade Name Freq PRN Reason Stop Dose Admin Lactated Ringer's 1,000 mls @ 100 mls/hr 09/10/23 04:37 09/10/23 05:14 Lr IV 10/10/23 04:36 100 mls/hr .Q10H REBECCA Administration NPO Date Last Intake of Fluids: 09/09/23 Time Last Intake of Fluids: 19:00 Date Last Intake of Solids: 09/09/23 Time Last Intake of Solids: 19:00 Past Medical History Medical History Elevated troponin Hypomagnesemia ERUM (acute kidney injury) Encounter for pre-operative examination History of COVID-19 07/2021 Flu-like symptoms, fever > resolved Diabetes Hyperlipidemia Benign prostatic hyperplasia with urinary obstruction Chronic kidney disease, stage I 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 Severe obstructive sleep apnea Per records Past Family History Family History Father Hypertension Diabetes Family/Other Bladder cancer Past Surgical History Surgical History S/P colonoscopy 2019 Status post finger joint fusion RIGHT RING FINGER H/O elbow surgery LEFT S/P bladder repair Status post hip surgery LEFT S/P ACL reconstruction LEFT-1988 Social History Smoking Status: Never smoker Do You Dip or Chew Tobacco: No Hx Alcohol Use: Yes Alcohol type: beer alcohol intake frequency: a few times a week Hx Substance Use: No substance use type: does not use Physical Exam Vital Signs Last Vital Signs Temp 97.7 F 09/10/23 04:38 Pulse 63 09/10/23 04:38 Resp 18 09/10/23 04:38 BP 113/77 09/10/23 04:38 Pulse Ox 98 09/10/23 04:38 O2 Del Method Room Air 09/10/23 04:38 Testing Laboratory Results 09/09/23 20:30 09/09/23 20:30 Urine Color Yellow 09/09/23 20:25 Urine Appearance Clear (Clear) 09/09/23 20:25 Urine pH 5.5 (4.5-7.5) 09/09/23 20:25 Ur Specific [place] 1.026 (1.000-1.030) 09/09/23 20:25 Urine Protein Negative (Negative) 09/09/23 20:25 Urine Glucose (UA) Negative (Negative) 09/09/23 20:25 Urine Ketones Negative (Negative) 09/09/23 20: Urine Nitrite Negative (Negative) 09/09/23 20:25 Ur Leukocyte Esterase Negative (Negative) 09/09/23 20:25
[2023-09-10] MEDS: MoRPHine SULFATE 2 MG/ML CARP IV PRN (08:03)
[2023-09-10] MEDS ORDERED: ACETAMINOPHEN 1000 MG/100 ML IV IV ONE (08:42)
[2023-09-10] MEDS ORDERED: FAMOTIDINE/PF 20 MG/2 ML VIAL IV ONE (08:42)
[2023-09-10] MEDS ORDERED: ROCURONIUM BROMIDE 10 MG/ML 5 ML VIAL IV ONE (08:42)
[2023-09-10] MEDS ORDERED: ePHEDrine sulfate 50 MG/ML AMP IV PRN (11:04)
[2023-09-10] MEDS ORDERED: ATROPINE SULFATE 0.1 MG/ML 10ML SYR IV PRN (11:04)
[2023-09-10] MEDS ORDERED: fentaNYL citrate PF 100 MCG/2 ML VIAL ONE (11:16)
[2023-09-10] MEDS ORDERED: MIDAZOLAM HCL 1 MG/ML 2ML VIAL ONE (11:16)
[2023-09-10] MEDS ORDERED: ONDANSETRON INJ 2 MG/ML 2 ML VIAL ONE (11:17)
[2023-09-10] MEDS ORDERED: SUGAMMADEX SODIUM 200 MG/2 ML VIAL IV ONE (11:17)
[2023-09-10] MEDS ORDERED: LIDOCAINE 2% 2 ML VIAL/AMP(20MG/ML) INFIL ONE (11:17)
[2023-09-10] MEDS ORDERED: METOCLOPRAMIDE HCL INJ 5 MG/ML 2 ML VIAL ONE (11:17)
[2023-09-10] MEDS ORDERED: PROPOFOL IV EMULSION 10 MG/ML 20 ML VIAL IV ONE ×2 (11:17→13:15)
[2023-09-10] MEDS ORDERED: DEXAMETHASONE SOD INJ 4 MG/ML VIAL ONE (11:17)
--- OUTSIDE RECORDS SUMMARY | 2023-09-10 11:46 | External Medical Summary | Summary of Care ---
Author Name Unknown Organization [facility] Address [address] [place] [address] Phone [phone] Care Team Providers Care Bore Miner Operator Name Role Phone Rommel Deyger Primary Care Provider Reason for Visit * Reason Onset Date Comments Advice 08/26/2023 Encounter Details Date Type Department Care Team (Late st Contact Info) Description 08/26/2023 Telephone [facility]HS Surgery [facility] [address] [place] [address] Jaquelin Robledo MD [address] [place] [address] Advice Allergies Active Allergy Reactions Criticality Noted Date Comments Bee Venom Edema Other 05/12/2020 Face swelled up when stung inside mouth Wasp Venom 05/12/2020 documented as of this encounter (statuses as of 08/26/2023) Medications Medication Sig Dispensed Refills Start Date End Date Status Alfuzosin HCl ER 10 MG TB24 daily. 0 10/05/2017 Active ALPRAZolam (XANAX) 0.5 MG Tablet TAKE 1 TABLET BY MOUTH DIRECTED NEEDED 0 08/19/2017 Active Eszopiclone 3 MG Tablet TAKE 1 TABLET BY MOUTH DAILY NEEDED 0 08/19/2017 Active atorvaSTATin (LIPITOR) 20 MG Tablet TAKE 1 TABLET(S) BY MOUTH DAILY 0 08/05/2017 Active metFORMIN ER (GLUCOPHAGE XR) 500 MG TB24 Take 500 mg by mouth 2 times a day. 0 Active Ozempic (1 MG/DOSE) 2 MG/1.5ML Subcutaneous Solution Pen-injector weekly 0 04/08/2020 Active Clindamycin Phosphate 1 % External GelIndications:Foll iculitis Apply topically to affected area daily. 60 g 5 05/12/2020 Active Additional Information Patient not taking.Reported on 05/31/2022 Fluocinonide 0.05 % External Gel (LIDEX)Indications: Folliculitis Apply topically to affected area daily. 60 g 0 05/12/2020 Active Additional Information Patient not taking.Reported on 05/31/2022 Propranolol HCl 10 MG Oral Tablet (Inderal) TAKE 1 TABLET BY MOUTH EVERY DAY NEEDED FOR ANXIETY 0 03/01/2022 Active Doxycycline Monohydrate 100 MG Oral Capsule Take 1 Capsule by mouth in the morning and 1 Capsule before bedtime. Do all this for 10 days. 20 Capsule 0 08/26/2023 09/05/2023 Active Mupirocin 2 % External Ointment (Bactroban) Apply to surgical site on back 1-2 times daily 22 g 0 08/26/2023 Active documented as of this encounter (statuses as of 08/26/2023) Active Problems No known active problems documented as of this encounter (statuses as of 08/26/2023) Immunizations Name Administration Dates Next Due Seasonal Influenza, Quadrivalent, No Preserve, I M 04/25/2020 documented as of this encounter Social History Tobacco Use Types Packs/Day Years Used Date Smoking Tobacco: Never Smokeless Tobacco: Never Alcohol Use Standard Drinks/Week Comments Yes 0 (1 standard drink = 0.6 oz pur e alcohol) occasional Sex and Gender Information Value Date Recorded Sex Assigned at Not on file Gender Identity Not on file Sexual Orientation Not on file Job Start Date Occupation Industry Not on file Not on file Not on file documented as of this encounter Miscellaneous Notes * Telephone Encounter - Jaquelin Robledo MD - 08/26/2023 8:03 PM EST Spoke with patient on the phone. Reviewed photo sent by patient. Surgical site on right back with erythema and soreness, concerning for early infection. Prescribed doxycycline 100 mg twice a day x 10days and mupirocin ointment. Advised patient to let me know if redness/soreness is not better in about 3 days. Jaquelin Robledo MD 08/26/2023 8:06 PM' documented in this encounter Plan of Treatment Upcoming Encounters Date Type Department Care Team (Late st Contact Info) Description 09/07/2023 1:45 PM EST Office Visit [facility] [place] [facility] [address] [place] [address] Jaquelin Robledo MD [address] [place] [address] 05/21/2024 10:15 AM EDT Office Visit Dermatology [facility] [address] [place] [address] Jayce Watkins MD [address] [facility] [place] [id number] Health Maintenance Due Date Last Done Comments Hepatitis B (1 of 3 - 3-dose series) 1970 Lipid Panel 1970 Pneumococcal Vaccine: Pediatrics (0 to 5 Years) and At-Risk Patients (6 to 64 Years) (1 - PCV) 1976 Depression Screening 1982 HIV Screening 1985 Hepatitis C Screening 1988 DTaP,Tdap,and Td Vaccines (1 - Tdap) 1989 Cologuard 2015 Colonoscopy 2015 Colorectal Cancer Screening 2015 Fecal Occult Blood Test 2015 Sigmoidoscopy 2015 Zoster Vaccines (1 of 2) 2020 COVID-19 Vaccine (3 - 2022-2 4 season) 2023 10/07/2020, 09/07/2020 Influenza Vaccine (FLU shot) (#1) 2023 05/12/2022, 04/25/2020 GARDASIL-HPV IMMUNIZATION SERIES Aged Out No longer eligible b ased on patient's age to complete this topic MENINGOCOCCAL (MENACTRA/MENVEO) Aged Out No longer eligible b ased on patient's age to complete this topic documented as of this encounter Medical Devices Not on filedocumented as of this encounter Care Teams Bore Miner Operator Relationship Specialty Start Date End Date Rommel Dey DO [address] [place] [address] PCP - General Family Medicine 10/07/17 documented as of this encounter
--- OUTSIDE RECORDS SUMMARY | 2023-09-10 11:46 | External Medical Summary | Summary of Care ---
Author Name Unknown Organization [facility] Address [address] [place] [address] Phone [phone] Care Team Providers Care Regulatory Manager Name Role Phone TiburcioRommel Eren Primary Care Provider Reason for Visit * Reason Comments Re-Check Pt presents today s/ p Mohs to L Leg and scraping on back. Leg is a little sore still. Back is doing well since taking abx (finished abx yesterday) Encounter Details Date Type Department Care Team (Late st Contact Info) Description 09/07/2023 1:45 PM EST Office Visit [facility] Surgery [facility] [address] [place] [address] Jaquelin Robledo MD [address] [place] [address] Visit for wound check* Allergies Active Allergy Reactions Criticality Noted Date Comments Bee Venom Edema Other 05/12/2020 Face swelled up when stung inside mouth Wasp Venom 05/12/2020 documented as of this encounter (statuses as of 09/08/2023) Medications Medication Sig Dispensed Refills Start Date [...] DAY NEEDED FOR ANXIETY 0 03/01/2022 Active Mupirocin 2 % External Ointment (Bactroban) Apply to surgical site on back 1-2 times daily 22 g 0 08/26/2023 Active Cephalexin 500 MG Oral Capsule Take 1 Capsule by mouth in the morning and 1 Capsule at noon and 1 Capsule before bedtime. Do all this for 7 days. 21 Capsule 0 09/07/2023 09/14/2023 Active documented as of this encounter (statuses as of 09/08/2023) Active Problems No known active problems documented as of this encounter (statuses as of 09/08/2023) Immunizations Name Administration Dates Next Due Seasonal [...] on file documented as of this encounter Progress Notes * Jaquelin Robledo MD - 09/07/2023 1:45 PM EST SUBJECTIVE: HPI: Salvador Lott is a 53 year old male seen for follow-up of Mohs micrographic surgery of a basal cell carcinoma on the left lateral jones repaired with a purse string on 08/17/23. Also s/p excisionof a basal cell carcinoma and curettage of a separate basal cell carcinoma on the right back the same day. On 08/26/23, patient called in with concern for infection of the surgical site on his back. Hewas prescribed doxycycline 100 mg BID x 10 days and mupirocin ointment. The surgical site on his back is feeling much better. However, the surgical site on his left lower leg is now sore and has surrounding erythema. EXAM Surgical site and curettage site on right back healing well, no evidence of infection, residual cutaneous Vicryl Rapide suture removed Surgical site on left lower leg with surrounding erythema, vicryl suture removed PLAN 1) Surgical site and curettage site on right back -Continue vaseline with bandage until completely healed 2) Surgical site on left lower leg. Concerning for surgical site infection - culture collected - Prescribed keflex 500 mg TID x 7 days and mupirocin ointment to be applied to the wound at least daily - recommended starting vinegar soaks (daily for the first week, then at least three times weekly; written instructions given) Follow-up: as needed (asked patient to contact me if no improvement in 3 days, will call with culture results) The patient was encouraged to contact me with any further questions or concerns. Jaquelin Robledo MD Associate, Mohs Micrographic Surgery & Dermatologic Surgery documented in this encounter Nursing Notes * Arcelia Russ LPN - 09/07/2023 1:39 PM EST Chief Complaint Patient presents with Re-Check Pt presents today s/p Mohs to L Leg and scraping on back. Leg is a little sore still. Back is doingwell since taking abx (finished abx yesterday) documented in this encounter Plan of Treatment Upcoming Encounters Date Type Department Care Team (Late st Contact Info) Description 05/21/2024 10:15 AM EDT [facility] [place] [address] [place] [address] Jayce Watkins MD [address] [place] [address] Pending Results Name Type Priority Associated Diagnoses Date /Time CULTURE, WOUND, SUPERFICIAL, AEROBIC Lab Routine Visit for wound check 09/07/2023 4:06 PM EST Health Maintenance Due Date Last Done Comments [...] Not on filedocumented as of this encounter Visit Diagnoses Diagnosis Visit for wound check- Primary Encounter for other specified aftercare documented in this encounter Care Teams Regulatory Manager Relationship Specialty Start Date End Date Rommel Dey DO [address] [place] [address] PCP - General Family Medicine 10/07/17 documented as of this encounter
--- OUTSIDE RECORDS SUMMARY | 2023-09-10 11:46 | External Medical Summary ---
Author Name Unknown Address Unknown Organization [id number]:[facility] [place] [address] [place] [address] Laboratory Report Ordering Provider Test Date Status EVERARDO WEST 09/07/2023 16:06:41 Final Observation Date Value Abnormality Reference (Units ) Status Bacteria identified in Specimen by Culture 09/07/2023 16:06:41 [id number]^PSEUDOMON AERUGINOSA Abnormal Final Many Pseudomonas aeruginosa Performing Location [facility] [place] [address] [address] [address] Ordering Provider Test Date Status EVERARDO WEST 09/07/2023 16:06:41 Final Observation Date Value Abnormality Reference (Units) Status Cefepime susceptibility 09/07/2023 16:06:41 2 Susceptible Final Ciprofloxacin 09/07/2023 16:06:41 <=0.25 Susceptible Final Levofloxacin susceptibility 09/07/2023 16:06:41 0.5 Susceptible Final Piperacillin + Tazobactamsusceptibility 09/07/2023 16:06:41 8 Susceptible Final Tobramycinsusceptibility 09/07/2023 16:06:41 <=1 Susceptible Final Test: Culture, Wound, Superf icial, Aerobic
Specimen Source: Leg, Left
Specimen Type: Superficial Wound
Specimen Date: 09/07/2023 4:06 PM
Result Date: 09/09/2023 9:54 AM
Result Status: Final result
Abnormal: Yes
Resulting Lab: [facility] [place]
[address]
[place] [address]

CULTURE

Many Pseudomonas aeruginosa (Abnormal)

SUSCEPTIBILITY

Pseudomonas
aeruginosa
METHOD MICROBROTH
DILUTIONS

CEFEPIME 2 Susceptible
CIPROFLOXACIN <=0.25 Susceptible
LEVOFLOXACIN 0.5 Susceptible
PIPERACILLIN TAZOBACTAM 8 Susceptible
TOBRAMYCIN <=1 Susceptible

null Performing Location [facility] [place] [address] [place] [address]
[2023-09-10] MEDS: cefOXitin 2,000 MG in DEXTROSE 5 % MINI-B 50 ML IV ONE (12:46)
[2023-09-10] MEDS: BUPIVACAINE 0.5 % 5 MG/1 ML MPF 30ML VIAL ONE (13:11)
[2023-09-10] MEDS ORDERED: SUCCINYLCHOLINE CHLORIDE 20 MG/ML 10 ML VIAL IV ONE (13:15)
[2023-09-10] MEDS ORDERED: cefOXitin SOD 1,000 MG VIAL ONE (13:18)
--- NOTE | 2023-09-10 13:39 | Operative Report ---
Post Operative Report Pre & Post Diagnosis Operation Date: 09/10/23 11:00 Pre-Op Diagnosis: Acute Appendicitis Post-Op Diagnosis: Acute Appendicitis I identified the patient and participated in the time-out.: Yes Procedure Operation Date: 09/10/23 11:00 Actual Procedures p Laparoscopic Appendectomy(Not Applicable) - Janey Hair MD Surgeon Janey Hair MD Nuclear Powerplant Mechanic Helper none Estimated Blood Loss 2 Findings Consistent with Post-Op Diagnosis acute appendicitis of tip Specimens appendix Drains none Anesthesia Type General Complications none Disposition Accompanied Patient To Recovery: No Disposition: Recovery Room Indications 53 yr old man with clinical and imaging findings of acute appendicitis. Consented for laparoscopic appendectomy. Description of Procedure The patient was on antibiotics preoperatively. He had placement of SCD's. After the induction of GET, he was positioned with his left arm tucked. His abdomen was sterilely prepped and draped. He was placed in trendelenburg. A supraumbilical incision was made and a Veress needle space into the peritoneal cavity. This was tested with a saline drop test. Initial pressure was 2 mmHg and this was taken up to 15 mmHg. A 12 mm trocar was placed under direct vision. This was done with the camera through the port site. The 2 additional trocars were placed a 5 mm in the left lower quadrant and a 5 mm in the midline pubic area. The appendix was visualized. The tip of the appendix was quite i nflamed and was adherent to both the cecum and the anterior abdominal wall. This was peeled away. The remainder of the appendix was long and skinny with minimal inflammation. The appendix was divided off of the base of the cecum with a firing of the OLGA 45 holland load stapler. The appendiceal mesentery was taken with sequential firings of the OLGA holland load stapler. The appendix was placed in Endobag and removed through the umbilical incision. The abdomen was irrigated and suctioned clear. Hemostasis was noted to be present. The trocars were removed. 30 cc of half percent Marcaine was used for local anesthesia. The skin of the incisions was closed with running subcuticular 4-0 Monocryl suture after the fascia of the umbilical incision was closed with 0 Vicryl stitches. Steri-Strips and sterile dressings were applied. He was awakened and taken to recovery in stable condition. I attest to the content of the Intraoperative Record and any orders documented therein. Any exceptions are noted below.
[2023-09-10] MEDS: fentaNYL citrate PF 100 MCG/2 ML VIAL IV PRN (14:08)
--- NOTE | 2023-09-10 14:25 | Anesthesiology Progress Note ---
Date of Service September 10, 2023 Anesthesia Post Procedure Vital Signs Vital Signs: Temp Pulse Pulse Pulse Resp BP BP 09/10/23 14:05 74 16 128/82 09/10/23 13:55 77 23 134/78 09/10/23 13:46 97.0 F L 79 17 132/85 09/10/23 08:49 109/71 09/10/23 08:12 97.5 F L 61 16 98/73 L 09/10/23 04:38 97.7 F 63 18 113/77 09/10/23 04:06 61 09/10/23 04:00 58 L 16 96/62 L 09/10/23 03:11 64 16 104/66 09/10/23 02:00 60 18 102/60 09/10/23 00:20 74 09/10/23 00:07 78 18 115/67 09/09/23 20:14 98.1 F 87 18 108/74 Pulse Ox O2 Del Method O2 Flow Rate 09/10/23 14:05 93 Room Air 09/10/23 13:55 97 Oxymask 3 09/10/23 13:46 99 Oxymask 6 09/10/23 08:49 09/10/23 08:12 95 Room Air 09/10/23 04:38 98 Room Air 09/10/23 04:06 09/10/23 04:00 90 Room Air 09/10/23 03:11 95 Room Air 09/10/23 02:00 93 Room Air 09/10/23 00:20 09/10/23 00:07 95 Room Air 09/09/23 20:14 96 Room Air Pain Intensity Abdomen: Pain Intensity: 6 Transfer of Care Handoff Completed per policy Notes Mental Status: alert / awake / arousable and participated in evaluation Patient Amnestic to Procedure: Yes Nausea / Vomiting: adequately controlled Pain: adequately controlled Airway Patency, RR, SpO2: stable & adequate BP & HR: stable & adequate Hydration State: stable & adequate Anesthetic Complications: no major complications apparent and Pt Satisfied with anesthetic care
[2023-09-10] MEDS ORDERED: SILDENAFIL CITRATE 20 MG TABLET PO PRN (14:52)
[2023-09-10] MEDS ORDERED: ZOLPIDEM TARTRATE 5 MG TAB PO PRN (14:52)
[2023-09-10] MEDS ORDERED: FLUTICASONE/SALMETEROL (ADVAIR) 500/50 INH 14 PUFF INH PRN (14:52)
[2023-09-10] MEDS ORDERED: NON-FORMULARY MEDICATION (Semaglutide [Ozempic] 2 mg/dose (8 mg/3 mL) pen injector) SQ SCH (14:52)
[2023-09-10] MEDS ORDERED: clonazePAM 0.5 MG TAB PO PRN (14:52)
[2023-09-10] MEDS ORDERED: EPINEPHrine ADULT AUTO-INJECT 0.3 MG SYR IM PRN (14:52)
--- NOTE | 2023-09-10 15:01 | Discharge Summary ---
Date of Service September 10, 2023 Admission HPI Per Admitting Provider 53 yr old man with abdominal pain for the last few days, worse in the right lower quadrant, worse with movements, could not get comfortable. Sharp/ stabbing, moderate intensity, no radiation. No similar symptoms in the past. No relieving factors. No change in bowel habits. Last meal was 6 pm. On ozempic. On antibiotics for infection following recent Moh's surgery. History of sepsis following a TURP. Admission Exam (Per Admitting) Constitutional WD/WN, vitals as above Eyes PERRL, conjunctivae normal, anicteric sclerae ENMT Ears: no hearing impairment Neck trachea midline, no thyromegaly Respiratory normal respiratory effort, lungs clear to auscultation Cardiovascular RRR, no murmur, no edema Gastrointestinal (Abdomen) Inspection/Auscultation: abdomen normal to inspection and normal bowel sounds; abdomen not distended Percussion/Palpation: + abdomen tender (right lower quadrant with guarding) and abdomen soft Neurologic awake; no focal motor deficits Psychiatric A+Ox3, euthymic affect Discharge Data Procedures Performed Operation Date: 09/10/23 11:00 Actual Procedures p Laparoscopic Appendectomy(Not Applicable) - Janey Hair MD Hospital Course (1) Acute appendicitis: 53 yr old man with acute appendicitis. Discussed laparoscopic appendectomy with risks of bleeding, infection, conversion to open, postop ileus/ abscess, negative appy. Expected recovery period of 1-2 weeks reviewed. He underwent a routine appendectomy. His postoperative course was uncomplicated. He was discharged home in stable condition
[2023-09-10] MEDS: LOSARTAN POTASSIUM 25 MG TAB PO SCH (15:30)
[2023-09-10] MEDS: ATORVASTATIN 20 MG TAB PO SCH (15:30)
[2023-09-10] MEDS: cefOXitin 1,000 MG in DEXTROSE 5 % MINI-B 50 ML IV SCH (16:26)
[2023-09-11] MEDS ORDERED: MULTIVITAMIN TAB PO SCH (09:00)
== END 2023-09-10 17:18 | disposition home or self-care (01) ==
LOC: ED 19:58 → 3N 19:58

== ENCOUNTER 2025-05-13 08:12 | Observation (INO) ==
--- NOTE | 2025-04-08 12:23 | PAT Medication Instructions ---
Medication Instructions Date of Service April 08, 2025 Home Medications Medication Instructions Recorded epinephrine 0.3 mg/0.3 mL 0.3 mg (0.3 mL) IM Q10M PRN 05/08/21 injection, auto-injector (EpiPen) anaphylaxis #2 ea atorvastatin 20 mg tablet (Lipitor) 20 mg PO QAM epinephrine 0.3 mg/0.3 mL injection, auto-injector (EpiPen) 0.3 mg (0.3 mL) IM Q10M PRN multivitamin 1 tab PO QAM clonazepam 0.5 mg tablet (Klonopin) 0.5 mg PO DAILY PRN losartan 25 mg tablet 25 mg PO QAM semaglutide 2 mg/dose (8 mg/3 mL) subcutaneous pen injector (Ozempic) 2 mg subcut WK zolpidem 5 mg tablet (Ambien) 5 mg PO HS PRN sildenafil (pulm.hypertension) 20 mg tablet (Revatio) 100 mg PO DIRECTED PRN STOP 7 days before surgery semaglutide 2 mg/dose (8 mg/3 mL) subcutaneous pen injector (Ozempic) 2 mg subcut WK Continue as directed epinephrine 0.3 mg/0.3 mL injection, auto-injector (EpiPen) 0.3 mg (0.3 mL) IM Q10M PRN(if needed) clonazepam 0.5 mg tablet (Klonopin) 0.5 mg PO DAILY PRN(if needed) STOP taking 24 hours before surgery sildenafil (pulm.hypertension) 20 mg tablet (Revatio) 100 mg PO DIRECTED PRN DO NOT take the morning of surgery multivitamin 1 tab PO QAM losartan 25 mg tablet 25 mg PO QAM Take morning of surgery With a small sip of water, OTHERWISE NOTHING TO EAT OR DRINK AFTER MIDNIGHT: atorvastatin 20 mg tablet (Lipitor) 20 mg PO QAM Take evening before surgery zolpidem 5 mg tablet (Ambien) 5 mg PO HS PRN(if needed) Other Notes If you have any questions please call us at [phone] or [phone] or [phone] or [phone]
--- NOTE | 2025-04-10 09:43 | Anesthesiology Consultation ---
Date of Service April 10, 2025 Assessment & Plan (1) Encounter for pre-operative examination: Plan - awaiting upcoming [place] establish care PCP office visit 04/17/25. - check BSG am DOS. - bradycardia: patient states that he is usually very active, activity level has been reducing with knee dysfunction; he states has chronically been told his heart rate is slow. Denies any dizziness or lightheadedness. Regular rhythm on exam. EKG - semaglutide instructions: Patient informed at PAT visit to stop 7 days prior to surgery- voiced understanding. Patient advised to check with prescriber to see if alternative diabetic management changes recommended while holding semaglutide-if so, patient to call back to [facility] to update chart and discuss if any further preop medication instructions needed. Chart Review Chart Review: Pending: Refer to Additional Notes / Consult section and Patient seen in Pre Admission Testing Teaching & Discussion Pre-Anesthesia Teaching/Discussion Notes: Instructed NPO after midnight before surgery, except medications with 15 cc of water. Medication instructions provided according to the [facility] guidelines. History Surgery Operation Date: 05/03/25 07:00 Proposed Procedures p Robotic Assisted Left Total Knee Arthroplasty, Possible Removal Screw - Rommel Moscoso, Height/Weight Height: 6 ft 2 in Weight: 105.9 kg Allergies Allergy/AdvReac Type Severity Reaction Status Date / Time bee venom protein (honey bee) Allergy Severe Anaphylaxis Verified 04/05/25 14:15 Medications Home Medications Medication Instructions Recorded Confirmed Last Taken atorvastatin 20 mg tablet (Lipitor) 20 mg PO QAM #90 tabs 04/20/19 04/05/25 09/09/23 epinephrine 0.3 mg/0.3 mL 0.3 mg (0.3 mL) IM Q10M PRN 05/08/21 04/05/25 Unknown injection, auto-injector (EpiPen) anaphylaxis #2 ea multivitamin 1 tab PO QAM 01/07/22 04/05/25 09/09/23 clonazepam 0.5 mg tablet (Klonopin) 0.5 mg PO DAILY PRN Anxiety 09/09/23 04/05/25 Unknown losartan 25 mg tablet 25 mg PO QAM 09/09/23 04/05/25 09/09/23 semaglutide 2 mg/dose (8 mg/3 mL) 2 mg subcut WK 09/09/23 04/05/25 03/31/25 subcutaneous pen injector (Ozempic) zolpidem 5 mg tablet (Ambien) 5 mg PO HS PRN Sleep 09/09/23 04/05/25 Unknown sildenafil (pulm.hypertension) 20 100 mg PO DIRECTED PRN sexual 04/05/25 04/05/25 Unknown mg tablet (Revatio) activity Past Medical History Medical History BPH (benign prostatic hyperplasia) Chronic kidney disease, stage I Diabetes mellitus, type 2 Weekly Inj History of basal cell carcinoma (BCC) multiple, s/p Mohs History of COVID-19 (~2021) 07/2021 Flu-like symptoms, fever > resolved History of Mohs micrographic surgery for skin cancer History of sepsis (~2021) UTI, ERUM Hyperlipidemia Hypomagnesemia 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 20 g of prostate were resected" Severe obstructive sleep apnea no device Patient denies h/o stroke, seizures, heart attack, heart failure, HTN, blood clots/DVTs or blood transfusions. Exercise / Class Metabolic Activity II 4-5 Yardwork/Stairs/Walk up hill (denies chest discomfort or shortness of breath with one flight of stairs) Past Family History Family History Father Hypertension Diabetes Family/Other Bladder cancer Past Surgical History Surgical History H/O elbow surgery Left History of appendectomy History of transurethral resection of prostate (2021) History of wisdom tooth extraction S/P ACL reconstruction Left - 1988 S/P bladder repair "tumor removed" S/P colonoscopy (02/2025) Status post finger joint fusion Right Ring Finger Status post hip surgery Left - "cleaned it out" Past Anesthesia History No Hx of Anesthesia Complications and No Family Hx of Anesthesia Complications History of PONV No Hx of PONV and No Hx of Motion Sickness Social History Smoking Status: Never smoker Do You Dip or Chew Tobacco: No Hx Alcohol Use: Yes Alcohol type: beer and wine alcohol intake frequency: a few times a month Hx Substance Use: No substance use type: does not use Review of Systems Patient denies chest pain, shortness of breath, dyspnea on exertion, reflux, fever, chills, cough, wheezing, or palpitations. Physical Exam Vital Signs Vitals BP 103/67 P 40 (pt states HR is often slow-denies dizziness or lightheadedness) TEMP 98.2 SP02 98% on RA RESP 18 Physical Patient resting comfortably in chair in no acute distress, alert and oriented, responding appropriately throughout visit Full cervical extension range of motion without pain TMD 3.5 finger breadths Mallampati Score 2 Dentition: several crowns; denies chipped or loose teeth, caps, implants or bridges Lungs: normal respiratory effort. Good air movement, clear throughout to auscultation, no adventitious breath sounds Cardiac: bradycardic, regular rhythm, no murmurs noted Carotid arteries: negative bruit bilat Lab Results Anesthesia Preop Results Results Anesthesia Widget: WBC 4.91 K/ul (4.8-10.8) 04/10/25 Hgb 15.3 g/dl (14.0-18.0) 04/10/25 Hct 43.7 % (42.0-52.0) 04/10/25 Plt 200 K/uL (130-400) 04/10/25 Na 140 mmol/L (136-145) 04/10/25 K 4.4 mmol/L (3.5-5.1) 04/10/25 Cl 106 mmol/L (98-107) 04/10/25 CO2 29 mmol/L (21-32) 04/10/25 BUN 10 mg/dl (6-23) 04/10/25 Creat 1.39 mg/dl (0.6-1.4) 04/10/25 Glucose Level 101 mg/dl (70-99(Fasting)) H 04/10/25 PT 10.9 Seconds (9.0-12.0) 04/10/25 PTT 27 Seconds (21-31) 04/10/25 INR 1.0 (0.9-1.1) 04/10/25 HA1c 5.7 % (4.5-5.6) H 04/10/25 Blood Type O Positive 04/10/25 Antibody Screen NEGATIVE 04/10/25 Testing Electrocardiogram Date: 04/10/25 Sinus rhythm with frequent PVCs, rate 82 bpm Chest X-Ray Date: 04/10/25 No acute findings.
--- NOTE | 2025-05-09 09:04 | History & Physical Report ---
Date of Service May 09, 2025 Assessment & Plan (1) Osteoarthritis of left knee: Will proceed with a left total knee arthroplasty. Postoperatively, he will be started on aspirin for DVT prophylaxis and kept overnight in the hospital for postop medical management. He plans to use energy physical therapy on discharge. History of Present Illness Chief Complaint: Osteoarthritis of the left knee. Primary Care Provider: Rommel Dey Salvador is a pleasant 54-year-old male who underwent an ACL reconstruction back in the late 1980s. He had a large open arthrotomy for that. Unfortunately, he has gone on to develop arthritis. It is affecting his quality of life. He is having trouble walking long distances. He is having trouble staying active. He saw one of my nonoperative partners. X-rays have shown advanced arthritis. Had failed conservative treatment, he has elected to proceed with a left total knee arthroplasty. Allergies Allergy/AdvReac Type Severity Reaction Status Date / Time bee venom protein (honey bee) Allergy Severe Anaphylaxis Verified 04/23/25 12:50 Home Medications Medication Instructions Recorded Confirmed Type atorvastatin 20 mg tablet (Lipitor) 20 mg PO QAM #90 tabs 04/20/04/23/25 Hist ory epinephrine 0.3 mg/0.3 mL 0.3 mg (0.3 mL) IM Q10M PRN 05/08/21 04/23/25 Rx injection, auto-injector (EpiPen) anaphylaxis #2 ea multivitamin 1 tab PO QAM 01/07/22 04/23/25 History losartan 25 mg tablet 25 mg PO QAM 09/09/23 04/23/25 History semaglutide 2 mg/dose (8 mg/3 mL) 2 mg subcut WK 09/09/23 04/23/25 History subcutaneous pen injector (Ozempic) sildenafil (pulm.hypertension) 20 100 mg PO DIRECTED PRN sexual 04/05/25 04/23/25 History mg tablet (Revatio) activity clonazepam 0.5 mg tablet (Klonopin) 0.5 mg PO DAILY PRN Anxiety #30 04/17/25 04/23/25 Rx tabs zolpidem 5 mg tablet (Ambien) 5 mg PO HS PRN Sleep #30 tabs 04/17/25 04/23/25 Rx Past Med/Surg History Problem List Frequent PVCs Dizziness Palpitation Anxiety Bradycardia Frequent PVCs Acute insomnia Osteoarthritis of left knee Prostate cancer Insomnia Diabetes Peyronie's disease Benign prostatic hyperplasia with urinary obstruction Hyperlipidemia (Acute) Papillary transitional cell carcinoma of bladder (Acute) Urinary frequency (Acute) Medical History History of sepsis (~2021) UTI, ERUM Prostate cancer entered into EMR 01/26/22, per [facility] urology note from same date: "incidentally found to have prostate cancer in 1 slide of the specimen. 20 g of prostate were resected" Osteoarthritis of left knee BPH (benign prostatic hyperplasia) History of basal cell carcinoma (BCC) multiple, s/p Mohs History of Mohs micrographic surgery for skin cancer Diabetes mellitus, type 2 Weekly Inj Hypomagnesemia History of COVID-19 (~2021) 07/2021 Flu-like symptoms, fever > resolved Hyperlipidemia Chronic kidney disease, stage I Neoplasm of uncertain behavior of bladder "Papillary transitional cell carcinoma of bladder" per 01/26/22 [facility] urology note Severe obstructive sleep apnea no device Surgical History History of wisdom tooth extraction History of appendectomy History of transurethral resection of prostate (2021) S/P colonoscopy (02/2025) Status post finger joint fusion Right Ring Finger H/O elbow surgery Left S/P bladder repair "tumor removed" Status post hip surgery Left - "cleaned it out" S/P ACL reconstruction Left - 1988 Family History Father Hypertension Diabetes Colorectal cancer Family/Other Bladder cancer Uncle Prostate cancer Denies family history of Ovarian cancer Stroke Asthma Social History Smoking Status: Never smoker Second Hand Exposure: No; Do You Dip or Chew Tobacco: No; Tobacco Cessation Education Requested by Patient: No Hx Alcohol Use: Yes Alcohol type: beer and wine Hx Substance Use: No Preferred Language: Sami Communication Ability: Effective Visual Impairment: Partially Limited Hearing Ability: Normal Collection Systems Technician Required: No Beliefs That Will Affect Care: None marital status: Current Living Situation: Spouse Current Living Situation Comment: lives with and children current occupational status: employed current occupation: [employer] How many Children do You have: 3 Other Information That Helps Us Care for You: No Feels Safe at Home: Yes Safety Concerns: Feels Safe At This Time Childhood Exposure to Second-Hand Smoke: No Diet: regular caffeine: Yes during the past year weight has: remained stable Dental Care, Regularly: Yes Physical Activity Frequency: 3-4 Times per Week Seatbelt Use: always Sunscreen Use: Yes Assistive Devices: None Review of Systems All systems reviewed & are unremarkable except as noted in HPI & below. Physical Exam On physical exam of the left knee, he has a slight varus deformity. He is tender to palpation of the distal medial femoral condyle and over the medial joint line.. Constitutional WD/WN, vitals as above Eyes PERRL, conjunctivae normal, anicteric sclerae ENMT external ear and nose normal, oropharynx normal Neck trachea midline, no thyromegaly Respiratory normal respiratory effort Cardiovascular RRR, no murmur, no edema Gastrointestinal (Abdomen) normal bowel sounds, soft, nontender, no hepatosplenomegaly Psychiatric A+Ox3, euthymic affect Results & Data Results & Data Laboratory Results . Diagnostic Findings . PG Care Time/CCT Total # of Minutes Spent Total Time Spent with Patient: Total time spent is greater than 50% in coordination of care (as documented) at patient's floor/unit and/or counseling patient: Coding Level of Care Code None Diagnoses Osteoarthritis of left knee, unspecified osteoarthritis type M17.12 Osteoarthritis type: unspecified (1) Osteoarthritis of left knee Osteoarthritis type: unspecified Qualified Code(s): M17.12 - Unilateral primary osteoarthritis, left knee
[~2025-05-13 08:12] MED LIST changes: +ALBUTEROL HFA 8 GM INHALER INH ONE; -LR 15ML/HR IV SCH; +ROPIVACAINE 0.5% 5 MG/ML 30 ML VIAL ONE; -ceFAZolin 2000MG 2,000 MG/15 ML SYR IV SCH
[2025-05-13] MEDS ORDERED: MIDAZOLAM HCL 1 MG/ML 2ML VIAL ONE (08:30)
[2025-05-13] MEDS: LR 500ML BOLUS, THEN 15ML/HR IV SCH (08:40)
[2025-05-13] MEDS: dexAMETHasone**PF** 10 MG/ML VIAL IV SCH (08:41)
[2025-05-13] MEDS: LR 60ML/HR IV SCH (08:41)
[2025-05-13] MEDS: ACETAMINOPHEN 500 MG TAB PO SCH ×2 (08:42→14:06)
[2025-05-13] MEDS: FAMOTIDINE 20 MG TAB PO SCH (08:42)
[2025-05-13] MEDS: GABAPENTIN 900 MG DOSE PO SCH (08:42)
[2025-05-13] MEDS ORDERED: HYDROmorphone INJ 1 MG/ML SYRINGE IV PRN (09:29)
[2025-05-13] MEDS ORDERED: ATROPINE SULFATE 0.1 MG/ML 10ML SYR IV PRN (09:29)
[2025-05-13] MEDS ORDERED: ONDANSETRON INJ 2 MG/ML 2 ML VIAL IV PRN ×2 (09:29→13:35)
[2025-05-13] MEDS ORDERED: PROMETHAZINE HCL 6.25 MG in SODIUM CHLORIDE 0.9% 50 ML IV PRN (09:29)
--- NOTE | 2025-05-13 09:33 | History & Physical Bridge Note ---
Date of Service May 13, 2025 History & Physical Bridge Note I have examined the patient, reviewed the History & Physical and in the interval since the performance of the History & Physical I have noted the following changes of clinical significance: no changes noted
[2025-05-13] MEDS: TRANEXAMIC ACID 1,000 MG **IV Pre-op IV SCH (10:04)
[2025-05-13] MEDS ORDERED: PROPOFOL IV EMULSION 10 MG/ML 20 ML VIAL IV ONE ×3 (10:06→11:27)
[2025-05-13] MEDS ORDERED: ONDANSETRON INJ 2 MG/ML 2 ML VIAL ONE (10:06)
[2025-05-13] MEDS ORDERED: KETAMINE HCL 10MG/ML SYR ONE (10:35)
[2025-05-13] MEDS ORDERED: GLYCOPYRROLATE 0.2 MG/ML VIAL ONE (10:44)
[2025-05-13] MEDS: ROPIV 0.5% 246mg, Ketorolac 30mg, EPINEPHrine 0.5mg in NSS INFIL SCH (11:06)
[2025-05-13] MEDS: ORTHO JOINT ANESTHETIC ONE (11:06)
--- NOTE | 2025-05-13 11:57 | Operative Report ---
PG Post Operative Report Pre & Post Diagnosis Operation Date: 05/13/25 10:00 Pre-Op Diagnosis: Left Knee Arthritis Post-Op Diagnosis: Left Knee Arthritis I identified the patient and participated in the time-out.: Yes Procedure Operation Date: 05/13/25 10:00 Actual Procedures p Robotic Assisted Left Total Knee Arthroplasty, with hardware removal (Left) - Rommel Moscoso DO Surgeon Rommel Moscoso DO Black Belt Angela Jones PA-C Estimated Blood Loss 30 Findings Consistent with Post-Op Diagnosis Specimens Left femoral and tibial bone Description of Procedure Implants used: I used a Rickie Persona total knee arthroplasty system with a size 11 standard PS femur, G tibia, 35 patella, and a size 14 CPS polyethylene bearing. All components were press-fit into place. Ed arrived [facility] for the above procedure. He was seen in the preoperative holding area and the operative extremity was identified and signed. he was given a preoperative antibiotic, TXA, a spinal anesthetic and an adductor nerve block. He was taken back to the operating room and laid on the table in supine position. He was given basic sedation. The operative knee was then prepped and draped in sterile fashion. A timeout was done, and the patient and the operative extremity was properly identified. A midline incision was made directly over the patella. Dissection was taken down to the extensor mechanism. A medial parapatellar arthrotomy was used. The medial retinaculum was released and the fat pad was mostly excised. The knee was flexed and the ACL, PCL, and meniscus were removed. The alignment of the knee replacement was assisted with a [employer] robotic knee. The femoral array was pinned in the distal femur and the tibial array was pinned using a percutaneous technique in the upper shaft of the tibia. The robot was appropriately calibrated and the structure of the knee was mapped out. The components were then manipulated on the screen to account for any malalignment and to assist in gap balancing. Once I was happy with the placement of the components on the screen, a distal femoral cutting guide was brought in place. The distal femur was then resected. The femur measured to be a size 11. A 4-in-1 cutting block was then put into place by the robot and 2 peg holes were drilled. The 4-in-1 cutting block was then impacted into place and anterior, posterior, and chamfer cuts were made. The cutting block was then brought down to the tibia and pinned into place. The proximal tibia was then resected. The posterior aspect of the knee was then opened up and any additional meniscus fragments and osteophytes were removed. The tibia measured to be a size G. The tibial plate was then placed in the appropriate rotation and the tibia was drilled and punched. Trial components were then placed. The patella was then everted and 9 mm was resected off the posterior aspect of the patella. The patella measured to be a size 35. 3 peg holes were then drilled. A trial patella was placed. A size 14 CPS polyethylene insert was then trialed. The knee was brought through a full range of motion and felt to be stable. Trial components were then removed. The surrounding soft tissues were injected with 100 cc of an orthopedic pain control cocktail. All components were then press-fit into place. The final polyethylene insert was then snapped into place. The tourniquet was deflated. Hemostasis was obtained. A dilute betadyne lavage was then done for 3 minutes. The joint was then irrigated with normal saline solution. The medial parapatellar arthrotomy was then closed with #1 Vicryl suture. The skin was closed with 2-0 Vicryl, 3-0V lock suture, and Yossi Zipline. A soft compressive dressing was placed. He was then transferred to a hospital bed and taken to the postanesthesia care unit in stable condition. He tolerated the procedure well. Angela Jones PA-C, was present for the entire procedure. He was critical for patient positioning, prepping, draping, retraction exposure, wound closure and application of sterile dressing. I attest to the content of the Intraoperative Record and any orders documented therein. Any exceptions are noted below.
--- NOTE | 2025-05-13 13:07 | XRay Report ---
TWO VIEWS LEFT KNEE CLINICAL HISTORY: Postoperative examination. FINDINGS: AP and crosstable lateral portable views of the left knee are compared to study dated 2024. A left knee arthroplasty is in near anatomic alignment. There has been undersurface remodeling of the patella. No acute fracture is seen. Subcutaneous gas and soft tissue edema around the knee are expected postsurgical findings. A screw in the distal femoral metaphysis from prior ACL repair is ag ain noted. IMPRESSION: Expected postoperative changes status post left knee arthroplasty. No acute fracture is s een. ACT 112: Negative or not required by law. Electronically signed by: Kenneth Contreras M.D. 05/13/2025 1:06 PM
--- NOTE | 2025-05-13 13:30 | Anesthesiology Progress Note ---
Date of Service May 13, 2025 Anesthesia Post Procedure Vital Signs Vital Signs: Temp Pulse Pulse Resp BP Pulse Ox O2 Del Method 05/13/25 13:10 47 L 24 101/60 92 Nasal Cannula 05/13/25 13:00 42 L 20 97/54 L 95 Nasal Cannula 05/13/25 12:50 45 L 14 111/56 L 91 Nasal Cannula 05/13/25 12:40 44 L 12 103/59 L 91 Nasal Cannula 05/13/25 12:34 36.2 C L 78 13 105/68 94 Room Air 05/13/25 08:32 36.7 C 85 20 126/93 96 Room Air O2 Flow Rate 05/13/25 13:10 2 05/13/25 13:00 2 05/13/25 12:50 2 05/13/25 12:40 2 05/13/25 12:34 05/13/25 08:32 Transfer of Care Handoff Completed per policy Notes Mental Status: alert / awake / arousable and participated in evaluation Patient Amnestic to Procedure: Yes Nausea / Vomiting: adequately controlled Pain: adequately controlled Airway Patency, RR, SpO2: stable & adequate BP & HR: stable & adequate Hydration State: stable & adequate Anesthetic Complications: no major complications apparent and Pt Satisfied with anesthetic care Notes: pt had bigeminy during the case and in pacu/ pt has had this worked up preoperatively
[2025-05-13] MEDS ORDERED: NALOXONE HCL 0.4 MG/1 ML VIAL/CARP IV PRN (13:35)
[2025-05-13] MEDS ORDERED: clonazePAM 0.5 MG TAB PO PRN (13:35)
[2025-05-13] MEDS ORDERED: METOCLOPRAMIDE HCL INJ 5 MG/ML 2 ML VIAL IV PRN (13:35)
[2025-05-13] MEDS ORDERED: diphenhydrAMINE Capsule 25 MG CAP PO PRN (13:35)
[2025-05-13] MEDS ORDERED: MAGNESIUM HYDROXIDE SUSP 30 ML UDC PO PRN (13:35)
[2025-05-13] MEDS ORDERED: EPINEPHrine INJ 1 MG/ML AMP IM PRN (13:42)
[2025-05-13] MEDS: KETOROLAC TROMETHAMINE 15 MG/ML VIAL IV SCH (14:06)
[2025-05-13] MEDS: SODIUM CHLORIDE 0.9% 1,000 ML IV SCH (14:13)
[2025-05-13] MEDS: ASPIRIN 81 MG ECTAB PO SCH (20:10)
[2025-05-13] MEDS: DOCUSATE SODIUM 100 MG CAP PO SCH (20:10)
[2025-05-13] MEDS: SENNA 8.6 MG TAB PO SCH (20:10)
[2025-05-13] MEDS: ZOLPIDEM TARTRATE 5 MG TAB PO PRN (21:28)
[2025-05-14] MEDS ORDERED: dexAMETHasone**PF** 10 MG/ML VIAL IV SCH (06:00)
[2025-05-14] MEDS ORDERED: LR 60ML/HR IV SCH (06:00)
[2025-05-14] MEDS ORDERED: FAMOTIDINE 20 MG TAB PO SCH (06:00)
[2025-05-14] MEDS ORDERED: LR 500ML BOLUS, THEN 15ML/HR IV SCH (06:00)
[2025-05-14] MEDS ORDERED: ROPIV 0.5% 246mg, Ketorolac 30mg, EPINEPHrine 0.5mg in NSS INFIL SCH (06:00)
[2025-05-14] MEDS ORDERED: GABAPENTIN 900 MG DOSE PO SCH (06:00)
[2025-05-14] MEDS ORDERED: TRANEXAMIC ACID 1,000 MG **IV Pre-op IV SCH (06:00)
[2025-05-14] MEDS ORDERED: ACETAMINOPHEN 500 MG TAB PO SCH (06:00)
[2025-05-14] MEDS: MULTIVITAMIN TAB PO SCH (07:30)
[2025-05-14] MEDS: LOSARTAN POTASSIUM 25 MG TAB PO SCH (07:30)
[2025-05-14] MEDS: ATORVASTATIN 20 MG TAB PO SCH (07:30)
[2025-05-14 07:39] VITALS: BP 97/59; PULSE 78; RESP 16; TEMP 97.7; O2SAT 93
[2025-05-14] MEDS ORDERED: MULTIVITAMIN TAB PO SCH (09:00)
--- NOTE | 2025-05-14 09:30 | Orthopedic Progress Note ---
Date of Service May 14, 2025 Assessment & Plan (1) Status post total left knee replacement: * Continue Current Treatment * Disposition: home * Daily treatment: Physical Therapy/ Occupational Therapy per protocol * Weight bearing status: WBAT * Continue to monitor for ABLA * Pain control * DVT prophylaxis, ASA * Office/hospital f/u 2 weeks for progress check and staple/suture removal * Plan for discharge today pending PT/OT clearance Subjective .Active Problems: S/p left TKA POD 1 54 y/o male s/p left TKA. Doing well overall, pain managed and improved function. Denies fever/chills, chest pain/SOB, nausea/vomiting. Otherwise no complaints. Some asymptomatic hypotension this morning, not out of bed yet today. Review of Systems All systems reviewed & are unremarkable except as noted in HPI & below. Physical Exam . * General: Alert and oriented, no acute distress * Constitutional: well-developed, well-nourished. * Respiratory: Normal respiratory effort, no distress * Gastrointestinal: No tenderness to palpation, no rigidity or guarding. * Skin: No rash or lesion. * Neurologic: Grossly normal * Musculoskeletal: Left knee surgical dressing CDI, not removed for exam. Otherwise no obvious deformity or overlying skin changes RLE. Diffuse TTP distal thigh and knee region. Otherwise no specific tenderness of proximal thigh, lower leg, foot/ankle. AROM knee flexion 100 degrees. AROM foot/ankle intact. Sensation intact plantar/dorsal foot. Brisk capillary refill. Results & Data Results & Data Laboratory Results . Diagnostic Findings . Knee X-Ray 05/13/25 12:37 TWO VIEWS LEFT KNEE CLINICAL HISTORY: Postoperative examination. FINDINGS: AP and crosstable lateral portable views of the left knee are compared to study dated 12/19/2024. A left knee arthroplasty is in near anatomic alignment. There has been undersurface remodeling of the patella. No acute fracture is seen. Subcutaneous gas and soft tissue edema around the knee are expected postsurgical findings. A screw in the distal femoral metaphysis from prior ACL repair is again noted. IMPRESSION: Expected postoperative changes status post left knee arthroplasty. No acute fracture is seen. ACT 112: Negative or not required by law. Electronically signed by: Kenneth Contreras M.D. 05/13/2025 1:06 PM PG Care Time/CCT Total # of Minutes Spent Total Time Spent with Patient: Total time spent is greater than 50% in coordination of care (as documented) at patient's floor/unit and/or counseling patient: Coding Level of Care Code 95825 Post Operative Follow-Up Diagnoses Status post total left knee replacement Z96.652
== END 2025-05-14 10:47 | disposition home or self-care (01) ==
LOC: ASU 08:12 → 3N 08:12